=== PATIENT | female | born 1950 | race Caucasian/White ===

== ENCOUNTER 2020-02-01 15:31 | Outpatient (REF) | payer MEDICARE, SELFPAY ==
[2020-02-01 17:16] LABS: Blood Urea Nitrogen 30 mg/dL (9-16); Estimated Glomerular Filt Rate 47
== END 2020-02-01 15:32 | disposition home or self-care (01) ==
LOC: HO.LAB 15:31
PROVIDERS: PCP Internal Medicine; Visit Provider Internal Medicine
DX: I10 Essential (primary) hypertension (principal)
CPT/HCPCS: 82565; 84520

== ENCOUNTER → 2020-03-07 13:21 | Outpatient (BNVA) | payer MEDICARE, SELFPAY | PROVIDERS: PCP Internal Medicine; Referring Provider Internal Medicine; Visit Provider Student in an Organized Health Care Education/Training Program | DX: M35.3 Polymyalgia rheumatica (principal); M85.80 Other specified disorders of bone density and structure, unspecified site; Z79.52 Long term (current) use of systemic steroids | CPT/HCPCS: 99212 ==

== ENCOUNTER 2020-03-14 14:19 | Outpatient (REF) | payer MEDICARE, SELFPAY ==
--- NOTE | 2020-03-14 14:31 | XR_ITS ---
EXAMINATION: XR SKULL CLINICAL INFORMATION: Headache COMPARISON: 5 views. TECHNIQUE: 5 views of the skull were obtained. FINDINGS: There is normal cortical thickness. The diploic space is normal. No lytic or sclerotic process seen. Visualized paranasal sinuses and mastoid air cells are well aerated. The bony orbits are symmetrical and normal. XR/XR skull min 4V IMPRESSION: Unremarkable skull 4 views.
== END 2020-03-14 14:20 | disposition home or self-care (01) ==
LOC: HO.LAB 14:19
PROVIDERS: Absent Provider Internal Medicine; PCP Internal Medicine; Visit Provider Student in an Organized Health Care Education/Training Program
DX: R51.9 Headache, unspecified (principal); M35.3 Polymyalgia rheumatica
CPT/HCPCS: 70260

== ENCOUNTER 2020-03-22 13:28 | Outpatient (REF) | payer MEDICARE, SELFPAY ==
--- NOTE | 2020-03-22 13:28 | MR_ITS ---
EXAMINATION: MR SHOULDER WITHOUT CONTRAST, RIGHT CLINICAL INFORMATION: Right shoulder pain. COMPARISON: Radiographs of the shoulder from 10/12/2019. TECHNIQUE: MRI of the shoulder without contrast was performed on a high-field scanner. FINDINGS: ROTATOR CUFF: The supraspinatous tendon is torn. This is predominantly a partial-thickness undersurface tear, with articular surface component of the tendon medially retracted by nearly 2 cm. Attenuated, intact bursal surface tendon fibers continue distally to the greater tuberosity insertion. However, at the superior facet of the tuberosity, the tendon is severely attenuated and, on sagittal images, there appears to be a full-thickness tear component measuring 0.6 cm AP dimension. Otherwise, rotator cuff tendons are intact. There is mild atrophy and mild fatty replacement of the supraspinatous muscle. Mild fatty replacement with observed within the other rotator cuff muscles. No muscle edema. BICEPS: The long head of the biceps tendon is intact. It is appropriately positioned within the intertubercular sulcus of the humerus. There appears to be mild tendinosis of a short segment of the tendon entering the rotator interval. The intra-articular segment of the tendon, and biceps-labral junction, are intact. CORACOACROMIAL ARCH: Mild osteoarthritis of the acromioclavicular joint. There is mild downsloping of the anterior acromion. An enthesophyte is present at the insertion of the coracoacromial ligament -- a finding that can be observed in association with chronic subacromial impingement disorder. No os acromiale. Subacromial-subdeltoid bursa is mildly distended with fluid and has thickened synovium, consistent with bursitis. LABRUM/CAPSULE: The labrum is ill-defined at the anterosuperior glenoid, and labrum appears to be partially detached at the anteroinferior glenoid. The posterior labrum is relatively small, truncated. The glenohumeral ligament complex is unremarkable. No evidence of capsular thickening or pericapsular edema. The spinoglenoid notch is normal. GLENOHUMERAL JOINT/MARROW: The humeral head is well positioned over the intact glenoid. Small osteophyte is present at the inferior glenoid. Partial-thickness cartilage loss of the anteroinferior glenoid. Small subchondral cyst of the anteroinferior glenoid. Small glenohumeral joint effusion is present. No humeral bone bruise, fracture or avascular necrosis. MR/MR shoulder RT wo con IMPRESSION: * There is a delamination tear of the supraspinatus tendon with medial retraction of the torn articular surface tendon fibers. The attenuated bursal surface component of the tendon continues distally to the greater tuberosity insertion. A small, full-thickness tear of the supraspinatus is present at the superior facet of the tuberosity insertion. 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 * Subacromial-subdeltoid bursitis is noted. There is an enthesophyte of the anterior acromion -- a finding that can be observed in association with chronic subacromial impingement disorder. * The anterior labrum is ill-defined, likely chronically degenerated and torn.
== END 2020-03-22 13:29 | disposition home or self-care (01) ==
LOC: HO.MRI 13:28
PROVIDERS: Visit Provider Student in an Organized Health Care Education/Training Program
DX: M35.3 Polymyalgia rheumatica (principal); M25.511 Pain in right shoulder
CPT/HCPCS: 73221

== ENCOUNTER 2020-04-19 12:43 | Outpatient (REF) | payer MEDICARE, OTHER, SELFPAY ==
--- NOTE | 2020-04-19 12:49 | MR_ITS ---
EXAMINATION: MR SHOULDER WITHOUT CONTRAST, LEFT CLINICAL INFORMATION: Left shoulder pain. Decreased range of motion. Frequent falls in 2019. COMPARISON: None. TECHNIQUE: MR images of the shoulder were obtained on a 1.5 [employer] high-field strength scanner without intravenous contrast material. FINDINGS: ROTATOR CUFF: At the supraspinatus and infraspinatus tendons, there is a thin band of fluid signal at the insertion of the junctional fibers measuring approximately 1.4 cm AP and involving less than a quarter of the tendon thickness, most consistent with a thin intrasubstance partial tear. At the infraspinatus, this tear likely extends through the articular lamella. As seen on image 9/18 of series 6, there is additional increased undersurface signal within the critical zone of the supraspinatus tendon occurring 1.5 cm from the insertion, likely corresponding to a small articular-sided partial tear which may be contiguous with the aforementioned insertional interstitial tear. This subtle focus of partial-thickness articular surface tearing measures approximately 4 x 4 mm in area and involves approximately one-quarter of the tendon thickness. The subscapularis tendon is intact. No muscle atrophy or fatty infiltration. BICEPS: Normal. CORACOACROMIAL ARCH: The undersurface of the acromion is flat with no subacromial spur. Moderate acromioclavicular osteoarthritis. Mild subacromial-subdeltoid bursitis. LABRUM/CAPSULE: There is absence of much of the inferior labrum with marked maceration of the remaining tissue. Additional degenerative fraying is evident at the labrum posteriorly and superiorly. Joint capsule is normal in thickness. GLENOHUMERAL JOINT/MARROW: There is a small glenohumeral joint effusion with synovitis in the axillary pouch and within the biceps tendon sheath. There is mild nonuniform articular cartilage loss at the humeral head superiorly and medially. [id number] nonuniform articular cartilage loss is present at the glenoid with marginal osteophytes. Subcortical cystic changes at the greater tuberosity posterosuperiorly likely reactive to overlying tendinopathy, though chronic changes of internal impingement are also possible. MR/MR shoulder LT wo con IMPRESSION: 1. Mild supraspinatus and infraspinatus tendinosis with a subtle partial-thickness interstitial and articular-sided partial tear at the junctional fibers, involving less than a quarter of the tendon thickness. 2. Moderate acromioclavicular and [id number] glenohumeral osteoarthritis. Marked degeneration of the inferior glenoid labrum. 3. Glenohumeral joint synovitis. This may be reactive to the degenerative arthritis, though inflammatory and crystalline arthropathies are also possible.
[2020-04-19 15:01] LABS: C Reactive Protein 0.25 mg/dL (< or = 0.50)
[2020-04-19 16:05] LABS: Erythrocyte Sedimentation Rate 8 MM/HR (0-20)
== END 2020-04-19 12:44 | disposition home or self-care (01) ==
LOC: HO.MRI 12:43
PROVIDERS: Visit Provider Student in an Organized Health Care Education/Training Program
DX: M25.512 Pain in left shoulder (principal)
CPT/HCPCS: 36415; 73221; 85652; 86140

== ENCOUNTER → 2020-10-10 13:16 | Outpatient (BNVA) | payer MEDICARE, SELFPAY | PROVIDERS: PCP Internal Medicine; Visit Provider Student in an Organized Health Care Education/Training Program | DX: M35.3 Polymyalgia rheumatica (principal); Z79.52 Long term (current) use of systemic steroids | CPT/HCPCS: 99212 ==

== ENCOUNTER → 2020-11-23 14:09 | Outpatient (BNVA) | payer MEDICARE, SELFPAY | PROVIDERS: PCP Internal Medicine; Visit Provider Nurse Practitioner Family | DX: M79.7 Fibromyalgia (principal); M51.36 Other intervertebral disc degeneration, lumbar region; M25.511 Pain in right shoulder; M25.512 Pain in left shoulder; M79.641 Pain in right hand; M79.642 Pain in left hand; S32.9XXA Fracture of unspecified parts of lumbosacral spine and pelvis, initial encounter for closed fracture; I10 Essential (primary) hypertension; L30.4 Erythema intertrigo; C67.9 Malignant neoplasm of bladder, unspecified; Z88.1 Allergy status to other antibiotic agents; Z88.5 Allergy status to narcotic agent; Z88.8 Allergy status to other drugs, medicaments and biological substances; Z79.52 Long term (current) use of systemic steroids; Z79.891 Long term (current) use of opiate analgesic; Z79.899 Other long term (current) drug therapy; Z99.3 Dependence on wheelchair | CPT/HCPCS: 99202 ==

== ENCOUNTER 2020-11-28 12:28 | Outpatient (REF) | payer MEDICARE, SELFPAY ==
[2020-11-28 13:49] LABS: MANUAL DIFF FLAG NO
[2020-11-28 14:06] LABS: Basophils Percent Auto 0.3 % (0-2); Eosinophils Percent Auto 0.2 % (0-4); Hematocrit 38.1 % (37-47); Hemoglobin 11.8 g/dl (12.0-16.0); Imm Gran Abs Auto 0.07 X10*3/uL (0.00-0.03); Imm Gran Pct Auto 0.6 % (0.0-0.4); Lymphocytes Percent Auto 7.7 % (20-40); Mean Corpuscular Hemoglobin 30.3 pg (27.0-33.0); Mean Corpuscular Volume 97.9 fL (80-98); Mean Platelet Volume 9.6 fL (9.4-12.3); Monocytes Absolute Auto 0.6 X10*3/uL (0.1-1.2); Neutrophils Absolute Auto 10.8 X10*3/uL (2.0-8.3); Neutrophils Percent Auto 86.2 % (45-73); Platelet Count 662 X10*3/uL (160-400); Red Blood Count 3.89 X10*6/uL (4.20-5.50); Red Cell Distribution Width 13.1 % (11.0-16.0); White Blood Count 12.5 X10*3/uL (4.8-10.8)
[2020-11-28 14:47] LABS: Erythrocyte Sedimentation Rate 54 MM/HR (0-20)
[2020-11-28 14:55] LABS: TSH reflex Free T4 0.61 uIU/mL (0.32-4.0)
== END 2020-11-28 12:29 | disposition home or self-care (01) ==
LOC: HO.LAB 12:28
PROVIDERS: Absent Provider Internal Medicine; PCP Internal Medicine; Visit Provider Student in an Organized Health Care Education/Training Program
DX: G89.4 Chronic pain syndrome (principal); M35.3 Polymyalgia rheumatica; E78.2 Mixed hyperlipidemia; E66.9 Obesity, unspecified; I10 Essential (primary) hypertension
CPT/HCPCS: 36415; 84443; 85025; 85652

== ENCOUNTER 2021-02-13 15:06 | Outpatient (REF) | payer MEDICARE, SELFPAY ==
--- NOTE | ~2021-02-13 | US_ITS ---
EXAMINATION: US VENOUS ULTRASOUND WITH DOPPLER LOWER EXTREMITY, BILATERAL CLINICAL INFORMATION: Bilateral lower extremity edema. Assess for occult DVT. COMPARISON: Left lower extremity venous ultrasound with Doppler 09/02/2017 TECHNIQUE: Ultrasound of the deep veins is performed from the hip to the calf with compression sonography and color and pulse Doppler assessment. Spectral analysis with color-flow imaging is performed. FINDINGS: RIGHT: There is normal venous compression and respiratory variation and augmented flow. The visualized common femoral vein, superficial femoral vein, profunda femoral vein, popliteal vein, and the trifurcation region shows no evidence of deep venous thrombosis. No popliteal fossa cyst demonstrated. LEFT: There is normal venous compression and respiratory variation and augmented flow. The visualized common femoral vein, superficial femoral vein, profunda femoral vein, popliteal vein, and the trifurcation region shows no evidence of deep venous thrombosis. No popliteal fossa cyst demonstrated. US/US venous duplex LE BI IMPRESSION: No DVT demonstrated in the bilateral lower extremity.
== END 2021-02-13 15:07 | disposition home or self-care (01) ==
LOC: HO.HMGCX 15:06
PROVIDERS: PCP Internal Medicine; Visit Provider Internal Medicine
DX: R60.0 Localized edema (principal)
CPT/HCPCS: 93970

== ENCOUNTER 2022-01-22 14:29 | Outpatient (REF) | payer MEDICARE, SELFPAY ==
--- NOTE | ~2022-01-22 | MM_ITS ---
EXAMINATION: BONE DENSITOMETRY CLINICAL INDICATION: Menopause. COMPARISON: Previous BD dated 10/22/2019 and baseline BD dated 03/04/2005. TECHNIQUE: Using a [employer] DXA System (software version: 13.1) manufactured by [employer], dual-energy x-ray absorptiometry was performed of the lumbar spine and left hip. The images are of good technical quality. Summary results are attached. FINDINGS: AP SPINE L1-L4: Current: BMD 1.074 g/cm2, Z-score 0.5, T-score -0.9, normal, 7.2% increase from previous, 1.7% increase from baseline (<5% change is not significant). Prior: BMD 1.002 g/cm2. Baseline: BMD 1.056 g/cm2. LEFT FEMUR, NECK: Current: BMD 0.820 g/cm2, Z-score 0.1, T-score -1.6, osteopenia. Prior: BMD 0.725 g/cm2. Baseline: BMD 0.854 g/cm2. LEFT FEMUR, TOTAL: Current: BMD 0.833 g/cm2, Z-score 0.0, T-score -1.4, osteopenia, 7.1% increase from previous, 5.2% decrease from baseline (<5% change is not significant). Prior: BMD 0.778 g/cm2. Baseline: BMD 0.879 g/cm2. IDENTIFIED RISK FACTORS: Early menopause, bilateral oophorectomy, family history (parent hip fracture), glucocorticoids (chronic), height loss, history of fracture (adult), hysterectomy, osteoporosis, secondary osteoporosis. HISTORY OF FRACTURE: Hip, ribs. MEDICATIONS: Calcium, vitamin D, bisphosphonate. MM/XR DEXA axial skeleton IMPRESSION: 1. DIAGNOSIS: Osteopenia based on the lowest T-score value of -1.6 in the femoral neck applying World Health Organization criteria. 2. 10-YEAR FRACTURE RISK PREDICTION, FRAX: Not performed in this patient on estrogen or bone building treatments. 3. Treatment Recommendations: NOF guidelines recommend consideration for treatment in postmenopausal women and men age 50 and older presenting with the following: -A hip or vertebral (clinical or morphometric) fracture. -T-score less than or equal to -2.5 at the femoral neck or spine after appropriate evaluation to exclude secondary causes. -Low bone mass at the hip or spine and a 10-year fracture probability by FRAX of greater than or equal to 3% for hip fracture or greater than or equal to 20% for major osteoporotic fracture based on the [place] adapted WHO algorithm. 4. Other Recommendations: All treatment decisions require clinical judgment and consideration of individual patient factors, including patient preferences, comorbidities, previous drug use, risk factors not captured in the FRAX model (e.g. frailty, falls, vitamin D deficiency, increased bone turnover, interval significant decline in bone density) and possible under or overestimation of fracture risk by FRAX. Additional medical evaluation for secondary cause of low bone mineral density may be appropriate. FUTURE SCAN RECOMMENDATION: People with diagnosed cases of osteoporosis or at high risk for fracture should have regular bone mineral density tests. For patients eligible for Medicare, routine testing is allowed once every 2 years. The testing frequency can be increased to one year for patients who have rapidly progressing disease, those who are receiving or discontinuing medical therapy to restore bone mass, or have additional risk factors.
== END 2022-01-22 14:30 | disposition home or self-care (01) ==
LOC: HO.MAMMO 14:29
PROVIDERS: PCP Internal Medicine; Visit Provider Nurse Practitioner Family
DX: Z13.820 Encounter for screening for osteoporosis (principal); Z78.0 Asymptomatic menopausal state
CPT/HCPCS: 77080

== ENCOUNTER 2022-06-13 11:03 | Outpatient (REF) | payer MEDICARE, SELFPAY ==
[2022-06-13 11:50] LABS: MANUAL DIFF FLAG NO
[2022-06-13 12:56] LABS: Basophils Percent Auto 0.6 % (0-2); Eosinophils Absolute Auto 0.2 X10*3/uL (0.0-0.4); Eosinophils Percent Auto 2.2 % (0-4); Hematocrit 43.4 % (37.0-47.0); Hemoglobin 13.8 g/dl (12.0-16.0); Imm Gran Abs Auto 0.03 X10*3/uL (0.00-0.03); Imm Gran Pct Auto 0.4 % (0.0-0.4); Lymphocytes Absolute Auto 1.2 X10*3/uL (1.2-4.9); Lymphocytes Percent Auto 15.9 % (20-40); Mean Corpuscular HGB Conc 31.8 g/dl (31.0-35.0); Mean Corpuscular Hemoglobin 30.3 pg (27.0-33.0); Mean Corpuscular Volume 95.4 fL (80.0-98.0); Mean Platelet Volume 9.5 fL (9.4-12.3); Monocytes Absolute Auto 0.6 X10*3/uL (0.1-1.2); Monocytes Percent Auto 8.2 % (2-11); Neutrophils Absolute Auto 5.3 x10*3/uL (2.0-8.3); Neutrophils Percent Auto 72.7 % (45-73); Platelet Count 333 X10*3/uL (160-400); Red Blood Count 4.55 X10*6/uL (4.20-5.50); Red Cell Distribution Width 15.2 % (11.0-16.0); White Blood Count 7.2 X10*3/uL (4.8-10.8)
[2022-06-13 13:35] LABS: Erythrocyte Sedimentation Rate 12 MM/HR (0-20)
[2022-06-13 13:50] LABS: Alanine Aminotransferase 13 U/L (0-31); Albumin Level 4.4 g/dL (3.5-5.0); Alkaline Phosphatase 53 U/L (39-117); Anion Gap 16 (12-20); Aspartate Amino Transferase 18 U/L (5-31); Bilirubin Total 0.5 mg/dL (0.0-1.0); Blood Urea Nitrogen 18 mg/dL (9-16); Calcium 9.3 mg/dL (8.4-10.2); Carbon Dioxide 26 mmol/L (22-29); Chloride 102 mmol/L (96-108); Cholesterol 210 mg/dL; Estimated Glomerular Filt Rate > 60; Glucose Fasting 93 mg/dL (60-99); HDL Cholesterol 56 mg/dL; LDL Cholesterol Calculated 121 mg/dl; Sodium 140 mmol/L (135-145); Triglycerides 168 mg/dL
[2022-06-13 13:51] LABS: Vitamin D 25-OH Total 26.4 ng/mL (>30)
== END 2022-06-13 11:04 | disposition home or self-care (01) ==
LOC: HO.LAB 11:03
PROVIDERS: PCP Internal Medicine; Visit Provider Internal Medicine
DX: I10 Essential (primary) hypertension (principal); M79.7 Fibromyalgia; E55.9 Vitamin D deficiency, unspecified; E78.00 Pure hypercholesterolemia, unspecified
CPT/HCPCS: 36415; 80053; 80061; 82306; 84443; 85025; 85652

== ENCOUNTER 2022-07-11 | Outpatient (REF) | payer MEDICARE, SELFPAY ==
[2022-07-12 16:01] LABS: Appearance Urine Cloudy; Color Urine Yellow; Glucose Urine UA Negative (Negative); Leukocyte Esterase Urine Moderate (2+) (Negative); Nitrite Urine Positive (Negative); PH 6.5 (5.0-9.0); Specific Gravity - Urine 1.015 (1.005-1.025); UMIC TRIGGER UACC YES; Urine Blood Small (1+) (Negative); Urine Ketones Negative (Negative); Urine Protein 30 (1+) mg/dL (Neg-Trace)
[2022-07-12 16:16] LABS: Bacteria Urine 2+ (None Seen); Calcium Oxalate Crystals Urine Present; UACC Culture Trigger YES; WBC Urine >50 /HPF (0-5)
== END 2022-07-11 00:01 | disposition home or self-care (01) ==
LOC: HO.LNP
PROVIDERS: Visit Provider Internal Medicine
DX: R30.0 Dysuria (principal)
CPT/HCPCS: 81001; 81003; 87086; 87088; 87186

== ENCOUNTER 2023-02-21 11:14 | Outpatient (AMB) | payer MEDICARE, SELFPAY ==
--- NOTE | 2023-02-21 11:17 | A.OFFVIS_ITS ---
Intake Vital Signs 02/21/23 11:21 Height 5 ft 1 in Weight 148 lb 8 oz BMI 28.1 BP 100/60 Blood Pressure Location Lt brachial Position Sitting Pulse 84 Pulse Source Pulse Oximeter Pulse Oximetry (%) 96 Oxygen Delivery Method Room Air Intake Visit Reasons: SWV [id number] Discuss/Bill ACP Intake Note: Patient is here for an Annual Wellness Visit. Material Checker Required: No Program Coordinator Executive Education: Program Coordinator Executive Education Present and Program Coordinator Executive Education offered & declined Accompanied by: Spouse Allergies cephalexin [Keflex] Allergy (Intermediate, Verified 02/21/23 11:44) hives codeine Allergy (Intermediate, Verified 02/21/23 11:44) vomit meperidine [Demerol] Allergy (Intermediate, Verified 02/21/23 11:44) Vomiting pregabalin Adverse Reaction (Intermediate, Verified 02/21/23 11:44) double vision, hand tremors bandaids, plastic tape Allergy (Mild, Uncoded 02/21/23 11:44) Rash Medication List - Last Reconciled 02/21/23 by REBA Vásquez adalimumab (Humira(CF) Pen) mg subcut albuterol sulfate 90 mcg/actuation (ProAir HFA) 2 puffs inhalation Q4-6H PRN atorvastatin 20 mg PO DAILY calcium carbonate (Calcium) 600 mg PO BID carisoprodol 350 mg PO TID PRN 30 days cholecalciferol (vitamin D3) 25 mcg PO DAILY docusate sodium (Colace) 100 mg PO BID esomeprazole magnesium (Nexium) 40 mg PO DAILY fenofibrate nanocrystallized 145 mg PO DAILY gabapentin 600 mg PO TID hydrochlorothiazide 12.5 mg PO QAM hydroxyzine HCl 25 mg PO TID PRN 30 days leflunomide 10 mg PO DAILY lidocaine 5% 3 patches topical DAILY lisinopril 10 mg PO DAILY lorazepam 2 mg PO TID PRN 30 days nystatin 1 appl topical BID PRN 30 days ondansetron 4 mg PO Q8H PRN 15 days oxycodone Take 1/2 to 1 tablet every 6 hours only as needed for increased pain; PO every 6 hours PRN; 10 days polyethylene glycol 3350 (Miralax) 17 grams PO DAILY PRN sertraline 200 mg (2 x 100 mg) PO DAILY 30 days HPI SWV [id number] Discuss/Bill ACP HPI Details Patient is a 72-year-old female who presents today [facility]. Patient of Dr. Funez Today we discussed patient's need for colon cancer screening, patient has declined. Mammogram 01/2023 and repeat in 6 months. Bone density screen 01/2022 with osteopenia. Patient reports that she recently had blood work done [facility] will request records. [place] of care was reviewed with the patient and she was provided with a screening schedule. Patient reports that she has a healthcare proxy in place and she will provide office with a copy, patient was provided with a MOLST form. In addition, patient reports pruritic rash on her left arm since 08/2022, her cable respooler sent triamcinolone cream with no improvement. She will be having dermatology appointment 04/2023. Patient also reports taking hydroxyzine 25 mg every 8 hours as needed with no much improvement. Denies changes in shampoo, body wash, detergent, or new foods. Also reports some minimal rash on her abdomen. [facility] Medical History Wheezing Overweight (BMI 25.0-29.9) Depression Keratotic lesion Bilateral shoulder pain Intertrigo Fracture of right pelvis Neck pain on right side Cranial pain Mixed hyperlipidemia Obesity (BMI 30-39.9) Anxiety Fibromyalgia Recurrent malignant neoplasm of bladder Benign essential hypertension Polymyalgia rheumatica Lumbar degenerative disc disease Surgical History History of colonoscopy History of hip surgery S/P ORIF (open reduction internal fixation) fracture (~06/2020) History of lumbosacral spine surgery Status post left foot surgery (~10/12/14) Hx of total cystectomy (~06/29/19) History of oral surgery (~04/2016) Status post cystourethroscopy with dilation of urethral stricture (~05/2015) Hx of tonsillectomy Family History Father Hypertension CVD (cardiovascular disease) Cancer Mother Stroke Social History Housing: House Alcohol intake: current Alcohol intake frequency: holidays/special occasions only Alcohol type: wine Patient Tobacco Use Status: Former Tobacco user Tobacco use type: Cigarette Cigarettes Per Day: 10 Years Smoked: 20 e-Cigarette/Vaping Use: Never Used Second Hand Smoke Exposure: Yes service: No Current occupational status: retired Cognitive needs: Yes (walker ) Hearing needs: No Vision needs: Yes Questionnaire Medicare Wellness Checkup [age] What gender do you identify with?: female During the past 4 weeks, how much have you been bothered by emotional problems such as feeling anxious, depressed, irritable, sad or downhearted, and blue?: slightly During the past 4 weeks, has your physical & emotional health limited your social activities with family, friends, neighbors, or groups?: moderately During the past 4 weeks, how much bodily pain have you generally had?: moderate pain (or severe depending on day) During the past 4 weeks, was someone available to help you if you needed & wanted help?: yes, as much as I wanted During the past 4 weeks, what was the hardest physical activity you could do for at least 2 minutes?: very light Can you get to places out of walking distance without help? (For eg., can you travel alone on buses, taxis or drive your car?): Yes Can you go shopping for groceries or clothes without someone's help?: No Can you prepare your own meals?: Yes (to some extend) Can you do your housework without help?: Yes (little) Because of any health problems, do you need the help of another person with your personal care needs such as eating, bathing, dressing or getting around the house?: Yes (need some help) Can you handle your own money without help?: No During the past 4 weeks, how would you rate your health in general?: poor During the past 4 weeks how have things been going for you?: pretty bad Are you having difficulties driving your car?: not applicable, I don't use a car Do you always fasten your seat belt when you are in a car?: yes, usually During past 4 weeks, have you been bothered by the following: never: Sexual problems?, Teeth or denture problems? and Problems using the telephone?, so metimes: Trouble eating well?, often: Falling or dizzy when standing up and always: Tiredness or fatigue? Have you fallen 2 or more times in the past year?: Yes Are you afraid of falling?: Yes Are you a smoker?: no During the past 4 weeks, how many drinks of wine, beer, or other alcoholic beverages did you have?: no alcohol at all Do you exercise for about 20 minutes 3 or more times a week?: yes, some of the time Have you been given information to help with the following?: yes: Keeping track of your medications? (spouse track medication) and no: Hazards in your house that might hurt you? How often do you have trouble taking medicines the way you have been told to take them?: I always take medicine as prescribed How confident are you that you can control & manage most of your health problems?: not very confident What is your race?: White Mini Mental State Exam (MMSE) Orientation What is the (year) (season) (date) (day) (month)?: year, season, date, day and month Score Score: 5 Activity of Daily Living Bathing - sponge bath, tub bath or shower: receives no assistance (gets in/out by self, if usual bathing means Dressing - getting clothes from closets & drawers, including inner/outer garments & fasteners.: gets clothes & gets dressed without help, except for help tying shoes Toileting - going to the 'toilet room' for urine/bowel elimination & cleaning self/arranging clothes: goes to toilet room, cleans self, arranges clothes without help Transfer: moves in & out of bed and chair without help (may use support object) Continence: supervision helps urination/bowel control; catheter use; incontinent (pt has urostomy ) Feeding: feeds self without help Total Score: 1 Information obtained from: patient Using telephone: independent Traveling: dependent Shopping: needs assistance Preparing meals: needs assistance Housework: dependent Taking medicine: needs assistance Managing money: independent PHQ-9 Over the last 2 weeks, how often have you been bothered by any of the following problems? 1. Little interest or pleasure in doing things: not at all 2. Feeling down, depressed, or hopeless: not at all 3. Trouble falling or staying asleep, or sleeping too much: not at all 4. Feeling tired or having little energy: not at all 5. Poor appetite or overeating: not at all 6. Feeling bad about yourself - or that you are a failure or have let yourself or your family down: not at all 7. Trouble concentrating on things, such as reading the newspaper or watching television: not at all 8. Moving or speaking so slowly that other people could have noticed. Or the opposite - being so fidgety or restless that you have been moving around a lot more than usual: not at all 9. Thoughts that you would be better off or of hurting yourself in some way: not at all Total score: 0 Depression Screening Interpretation: Negative Depression Screening Done: Yes 02525 - PHQ-9 Billing: Yes Source: Developed by Drs. Rupert Wilson, Shaye Russell, David Cleary and colleagues, with an educational kayleigh from [employer]. Thrive Questionnaire Date Thrive assessed: 10/14/22 MORGAN-7 AMB Questionnaire MORGAN-7 Date MORGAN - 7 assessed: 10/14/22 Source: Developed by Drs. Rupert Wilson, Shaye Russell, David Cleary and colleagues, with an educational kayleigh from [employer]. Review of Systems Skin/Breast Reports as per HPI Physical Exam Vital Signs: Last Vital Signs Pulse 84 02/21/23 11:21 BP 100/60 02/21/23 11:21 Pulse Ox 96 02/21/23 11:21 Oxygen Delivery Method Room Air 02/21/23 11:21 BMI result Body Mass Index 28.1 Const General: cooperative and no acute distress Orientation/consciousness: patient oriented x3 HEENT Other: Whisper test: pass Eyes General: appearance normal, both eyes and all related structures Resp Effort & Inspection: normal respiratory effort Auscultation: clear to auscultation bilaterally Cardio Rate: regular rate Rhythm: regular rhythm Heart sounds: S1 normal heart sound present and S2 normal heart sound present GI Auscultation: normal bowel sounds Skin Other: Left upper lateral arm with mild amount of slightly erythematous flat areas about 5mm in diameter, no signs of infection noted Abdomen with very mild amount of slightly erythematous flat areas Neuro Other: Balance: Normal - ambulates with a rolling walker Get up and walk: unable to Romberg: negative Tandem gait: unable to General: patient oriented x3 Assessment & Plan Assessment & Plan (1) Adult general medical exam: Code(s): Z00.00 - Encounter for general adult medical examination without abnormal findings (2) Chronic, continuous use of opioids: Code(s): F11.90 - Opioid use, unspecified, uncomplicated Plan: Patient is on oxycodone as needed as for her chronic pains. (3) Depression: Code(s): F32.9 - Major depressive disorder, single episode, unspecified Qualifiers: Depression Type: major depressive disorder Major depression recurrence: recurrent Active/Remission status: currently active Major depression episode severity: unspecified Qualified Code(s): F33.9 - Major depressive disorder, recurrent, unspecified Plan: Patient is on sertraline daily. (4) Mixed hyperlipidemia: Code(s): E78.2 - Mixed hyperlipidemia Plan: Continue current treatment. Reinforced low cholesterol diet. (5) Anxiety: Code(s): F41.9 - Anxiety disorder, unspecified Plan: Lorazepam as needed. Patient takes medication as prescribed. (6) Fibromyalgia: Code(s): M79.7 - Fibromyalgia Plan: Continue to follow-up with rheumatology (7) Benign essential hypertension: Code(s): I10 - Essential (primary) hypertension Plan: Continue current treatment. Reinforced low-sodium diet and exercise as tolerated. Patient reports that she needs a referral to go back and see her chiller tender, last cardiology visit over 1 year ago and now she needs new referral (8) Polymyalgia rheumatica: Code(s): M35.3 - Polymyalgia rheumatica Plan: Continue to follow-up with rheumatology as scheduled. (9) Lumbar degenerative disc disease: Code(s): M51.36 - Other intervertebral disc degeneration, lumbar region Plan: Was seen by Neurosurgery Dr. Melchor in the past (10) Recurrent malignant neoplasm of bladder: Code(s): C67.9 - Malignant neoplasm of bladder, unspecified Plan: Patient is followed by Oncology at [facility] - she will call for an appointment (11) Pruritic rash: Code(s): L28.2 - Other prurigo Plan: Left upper lateral arm with mild amount of slightly erythematous flat areas about 5mm in diameter, no signs of infection noted Abdomen with very mild amount of slightly erythematous flat areas Continue hydroxyzine 25 mg t.i.d. p.r.n. Prescription sent for betamethasone cream daily p.r.n. - educated not to use this cream on her face Follow-up with Dermatology as scheduled (12) Mitral valve prolapse: Code(s): I34.1 - Nonrheumatic mitral (valve) prolapse Plan: Patient reports that she needs a referral to go back and see her chiller tender, last cardiology visit over 1 year ago and now she needs new referral (13) GERD (gastroesophageal reflux disease): Code(s): K21.9 - Gastro-esophageal reflux disease without esophagitis Qualifiers: Esophagitis presence: without esophagitis Qualified Code(s): K21.9 - Gastro-esophageal reflux disease without esophagitis Plan: Stable with Nexium Avoid GERD trigger foods (14) Colonoscopy refused: Code(s): Z53.20 - Procedure and treatment not carried out because of patient's decision for unspecified reasons (15) Overweight (BMI 25.0-29.9): Code(s): E66.3 - Overweight Plan: Healthy food choices (16) Presence of urostomy: Code(s): Z93.6 - Other artificial openings of urinary tract status Plan: Stable Orders: Referrals Cardiology Referral I10 - Essential (primary) hypertension, I34.1 - Nonrheumatic mitral (valve) prolapse Medications: New betamethasone dipropionate 0.05% 1 appl topical DAILY PRN 15 grams 0RF skin irritation L28.2 - Other prurigo Quality Reporting (2019) Depression/Bipolar (159/160/161/177) PHQ-9: Total score: 0 Coding Level of Care Code Medicare Subsequent (G0439) Est Pt Level 3 (06000) Diagnoses Adult general medical exam Z00.00 Chronic, continuous use of opioids F11.90 Episode of recurrent major depressive disorder, unspecified depression episode severity F33.9 Depression Type: major depressive disorder Major depression recurrence: recurrent Active/Remission status: currently active Major depression episode severity: unspecified Mixed hyperlipidemia E78.2 Anxiety F41.9 Fibromyalgia M79.7 Benign essential hypertension I10 Polymyalgia rheumatica M35.3 Lumbar degenerative disc disease M51.36 Recurrent malignant neoplasm of bladder C67.9 Pruritic rash L28.2 Mitral valve prolapse I34.1 Gastroesophageal reflux disease without esophagitis K21.9 Esophagitis presence: without esophagitis Colonoscopy refused Z53.20 Overweight (BMI 25.0-29.9) E66.3 Presence of urostomy Z93.6 CPT Codes Advance Care Planning - Time spent: 1-15 minutes, not on file ([id number]) Advance Care Planning Advance Care Planning discussion: Exists, not on file Date of discussion: 02/21/23 Who was present: pt, , pediatric np Forms completed: None Time spent: 1-15 minutes, not on file Actual minutes spent: 3 Did not discuss due to Cultural/Spiritual beliefs: No
[2023-02-21 11:21] VITALS: BP 100/60; PULSE 84; O2SAT 96; BMI 28.1
== END 2023-02-21 12:19 | disposition home or self-care (01) ==
PROVIDERS: PCP Internal Medicine; Visit Provider Nurse Practitioner Family
DX: Z00.00 Encounter for general adult medical examination without abnormal findings (principal); L28.2 Other prurigo; F33.9 Major depressive disorder, recurrent, unspecified; M35.3 Polymyalgia rheumatica; C67.9 Malignant neoplasm of bladder, unspecified; Z93.6 Other artificial openings of urinary tract status; F11.90 Opioid use, unspecified, uncomplicated; E78.2 Mixed hyperlipidemia; F41.9 Anxiety disorder, unspecified; M79.7 Fibromyalgia; I10 Essential (primary) hypertension; M51.36 Other intervertebral disc degeneration, lumbar region
CPT/HCPCS: 1124F; 99213; G0439

== ENCOUNTER 2023-07-22 16:27 | Outpatient (REF) | payer MEDICARE, SELFPAY ==
--- NOTE | ~2023-07-22 | XR_ITS ---
EXAMINATION: XR KNEE, RIGHT XR KNEE, LEFT CLINICAL INDICATION: Pain in right knee. TECHNIQUE: 4 views of each knee. COMPARISON: 09/29/2018 FINDINGS: RIGHT KNEE: The distal aspect of an intramedullary barber is partially imaged in the visualized distal femur. Bones are diffusely demineralized. Trace joint effusion. Tiny tricompartmental osteophytes. Mild narrowing of the medial and lateral compartments. LEFT KNEE: Bones are diffusely demineralized. Tiny tricompartmental osteophytes. Moderate joint effusion. Mild narrowing of the medial and lateral compartments. XR/XR knee RT 4V IMPRESSION: Mild degenerative changes in the bilateral knees.
--- NOTE | ~2023-07-22 | XR_ITS ---
EXAMINATION: XR BILATERAL HIPS WITH AP PELVIS CLINICAL INFORMATION: Right hip pain. COMPARISON: Left hip radiographs dated 09/02/2017 TECHNIQUE: AP view of the pelvis and single views of each hip were obtained. FINDINGS: There is mild bony demineralization. The bilateral acetabular joint spaces are well-maintained. An intramedullary barber and proximal compression screw are applied to the proximal right femur, without failure or loosening noted. The intramedullary barber is incompletely covered in the [id number]. There are old, healed fractures of the proximal right femur and of the left inferior pubic ramus. There are bilateral pelvic surgical clips. The sacroiliac joints are symmetric and well-maintained, and the pubic symphysis is intact. A tubular device overlaps the right pelvis, possibly external to the patient. Please correlate clinically. XR/XR hips ANTON min 3V IMPRESSION: 1. No unusual degenerative change is seen of the bilateral hips. 2. Orthopedic hardware and old, healed fractures are noted, as detailed. 3. No acute fracture or dislocation is seen.
--- NOTE | ~2023-07-22 | XR_ITS ---
EXAMINATION: XR KNEE, RIGHT XR KNEE, LEFT CLINICAL INDICATION: Pain in right knee. TECHNIQUE: 4 views of each knee. COMPARISON: 09/29/2018 FINDINGS: RIGHT KNEE: The distal aspect of an intramedullary barber is partially imaged in the visualized distal femur. Bones are diffusely demineralized. Trace joint effusion. Tiny tricompartmental osteophytes. Mild narrowing of the medial and lateral compartments. LEFT KNEE: Bones are diffusely demineralized. Tiny tricompartmental osteophytes. Moderate joint effusion. Mild narrowing of the medial and lateral compartments. XR/XR knee LT 4V IMPRESSION: Mild degenerative changes in the bilateral knees.
[2023-07-22 16:48] LABS: MANUAL DIFF FLAG NO
[2023-07-22 17:08] LABS: Basophils Absolute Auto 0.1 X10*3/uL (0.0-0.2); Basophils Percent Auto 0.9 % (0-2); Eosinophils Absolute Auto 0.1 X10*3/uL (0.0-0.4); Eosinophils Percent Auto 1.7 % (0-4); Hematocrit 41.9 % (37.0-47.0); Hemoglobin 13.7 g/dl (12.0-16.0); Imm Gran Abs Auto 0.01 X10*3/uL (0.00-0.03); Imm Gran Pct Auto 0.2 % (0.0-0.4); Lymphocytes Absolute Auto 1.7 X10*3/uL (1.2-4.9); Lymphocytes Percent Auto 31.9 % (20-40); Mean Corpuscular HGB Conc 32.7 g/dl (31.0-35.0); Mean Corpuscular Hemoglobin 30.3 pg (27.0-33.0); Mean Corpuscular Volume 92.7 fL (80.0-98.0); Mean Platelet Volume 9.4 fL (9.4-12.3); Monocytes Absolute Auto 0.7 X10*3/uL (0.1-1.2); Monocytes Percent Auto 12.3 % (2-11); Neutrophils Absolute Auto 2.8 x10*3/uL (2.0-8.3); Platelet Count 330 X10*3/uL (160-400); Red Blood Count 4.52 X10*6/uL (4.20-5.50); Red Cell Distribution Width 13.2 % (11.0-16.0); White Blood Count 5.3 X10*3/uL (4.8-10.8)
[2023-07-22 17:38] LABS: Alanine Aminotransferase 19 U/L (0-31); Alkaline Phosphatase 109 U/L (39-117); Anion Gap 14 (12-20); Aspartate Amino Transferase 16 U/L (5-31); Bilirubin Total 0.2 mg/dL (0.0-1.0); Blood Urea Nitrogen 20 mg/dL (9-16); Calcium 9.4 mg/dL (8.4-10.2); Carbon Dioxide 21 mmol/L (22-29); Chloride 107 mmol/L (96-108); Cholesterol 286 mg/dL (<200); Estimated Glomerular Filt Rate > 60; Glucose Fasting 97 mg/dL (60-99); HDL Cholesterol 43 mg/dL (>40); LDL Cholesterol Calculated 177 mg/dL (<100); Potassium 3.8 mmol/L (3.3-5.1); Sodium 138 mmol/L (135-145); Total Protein 7.2 g/dL (6.5-8.0); Triglycerides 334 mg/dL (<150)
[2023-07-22 17:55] LABS: Appearance Urine Turbid; Color Urine Yellow; Glucose Urine UA Negative (Negative); Leukocyte Esterase Urine Large (3+) (Negative); Nitrite Urine Negative (Negative); PH 6.5 (5.0-9.0); Specific Gravity - Urine 1.015 (1.005-1.025); UMIC TRIGGER UACC YES; Urine Blood Negative (Negative); Urine Ketones Negative (Negative); Urine Protein Trace mg/dL (Neg-Trace)
[2023-07-22 17:55] LABS: TSH reflex Free T4 1.78 uIU/mL (0.32-4.0); Vitamin D 25-OH Total 26.6 ng/mL (>30)
[2023-07-22 18:41] LABS: Bacteria Urine 4+ (None Seen); UACC Culture Trigger YES
== END 2023-07-22 16:28 | disposition home or self-care (01) ==
LOC: HO.LAB 16:27
PROVIDERS: PCP Internal Medicine; Visit Provider Internal Medicine
DX: I10 Essential (primary) hypertension (principal); E55.9 Vitamin D deficiency, unspecified; E78.00 Pure hypercholesterolemia, unspecified; M25.561 Pain in right knee; M25.562 Pain in left knee; M25.551 Pain in right hip; M25.552 Pain in left hip; R30.0 Dysuria
CPT/HCPCS: 36415; 73522; 73564; 80053; 80061; 81001; 82306; 84443; 85025; 87086; 87088; 87186

== ENCOUNTER 2023-09-29 13:31 | Outpatient (AMB) | payer MEDICARE, SELFPAY ==
--- NOTE | 2023-09-29 13:33 | MHC.PC.OV ---
Vital Signs 09/29/23 13:36 Height 5 ft 1 in Weight 137 lb 8 oz BMI 26.0 BP 112/72 Blood Pressure Location Lt brachial Position Sitting Pulse 72 Pulse Source Pulse Oximeter Pulse Oximetry (%) 100 Oxygen Delivery Method Room Air Intake Visit Reasons: F/U on Both Legs/Both hips (falling since surgery) Intake Note: Patient is here to follow up on RA, bilateral leg pain, lump in neck. Complaint of open wound area toni area and it is draining. Hospital Chief Financial Officer Required: No Brim Setter: Present Accompanied by: Spouse Allergies cephalexin [Keflex] Allergy (Intermediate, Verified 12/12/23 02:19) hives codeine Allergy (Intermediate, Verified 12/12/23 02:19) vomit meperidine [Demerol] Allergy (Intermediate, Verified 12/12/23 02:19) Vomiting tizanidine Allergy (Intermediate, Verified 12/12/23 02:19) Dizziness pregabalin Adverse Reaction (Intermediate, Verified 12/12/23 02:19) double vision, hand tremors bandaids, plastic tape Allergy (Mild, Uncoded 12/12/23 02:19) Rash Medication List - Last Reconciled 09/29/23 by Steve Funez MD adalimumab (Humira(CF) Pen) mg subcut albuterol sulfate 90 mcg/actuation (ProAir HFA) 2 puffs inhalation Q4-6H PRN atorvastatin 20 mg PO DAILY betamethasone dipropionate 0.05% 1 appl topical DAILY PRN calcium carbonate (Calcium 600) 600 mg PO BID cholecalciferol (vitamin D3) 25 mcg PO DAILY docusate sodium (Colace) 100 mg PO BID esomeprazole magnesium (Nexium) 40 mg PO DAILY fenofibrate nanocrystallized 145 mg PO DAILY gabapentin 600 mg PO TID hydrochlorothiazide 12.5 mg PO QAM hydroxyzine HCl 25 mg PO TID PRN 30 days leflunomide 10 mg PO DAILY lidocaine 5% 3 patches topical DAILY lisinopril 10 mg PO DAILY lorazepam 2 mg PO TID PRN 30 days Nystop (nystatin) 1 appl topical BID PRN 30 days NS ondansetron 4 mg PO Q8H PRN 15 days oxycodone Take 1/2 to 1 tablet every 6 hours only as needed for increased pain; PO every 6 hours PRN; 10 days polyethylene glycol 3350 (Miralax) 17 grams PO DAILY PRN sertraline 200 mg (2 x 100 mg) PO DAILY 30 days tizanidine 4 mg PO Q8H PRN 30 days Tobacco use date assessed: 09/29/23 Fall risk assessment: 1 Fall in past year Last assessed Fall Risk: 09/29/23 Dental Screening Dental Screen Date: 09/29/23 Did you have a dental visit in the last 12 months?: Yes Did you have a dental problem in the last 6 months where you did not have access to dental care?: No Was dental information given to patient?: Patient has dentist HPI F/U on Both Legs/Both hips (falling since surgery) HPI Details Patient comes in today for her follow up visit - is accompanied by her spouse She continues to complain of increased pain all over everyday - states that she wakes up in pain and goes to sleep at night in pain States that she especially has increased pain in her lower back and in her hips and that these have progressively gotten worse since she fell (twice) after her hip surgery about 3 years ago in 2020 In total, she has had 5 separate surgeries done on her lower back, none of which have helped her much States that she feels very limited in anything that she can do due to her chronic pain and feels very depressed and despondent about her non-existent quality of life She is currently on Oxycodone 10 mg Q 6 hours PRN, which she states that she takes exactly as prescribed although she feels that these helped only partially and her relief does not last for more than a few hours at most She has been seen by pain management a few years ago and she chose not to pursue interventional treatment as she did not feel that they would help any more than what she had already been through She continues to follow up with Dr. Aburto (rheumatology) out in [place] for her RA She denies any headaches or dizziness Denies any chest pains, no increased SOB No nausea/vomiting, no abdominal pain No change in bowel habits noted She had some labs done a couple of months ago - to discuss her results Adds that she currently has what she thinks are some draining sores in her perineal area and she is trying to manage them on her own for now [facility] Medical History Wheezing Overweight (BMI 25.0-29.9) Depression Keratotic lesion Bilateral shoulder pain Intertrigo Fracture of right pelvis Neck pain on right side Cranial pain Mixed hyperlipidemia Obesity (BMI 30-39.9) Anxiety Fibromyalgia Recurrent malignant neoplasm of bladder Benign essential hypertension Polymyalgia rheumatica Lumbar degenerative disc disease Surgical History History of biopsy History of colonoscopy History of hip surgery S/P ORIF (open reduction internal fixation) fracture (~06/2020) History of lumbosacral spine surgery Status post left foot surgery (~10/12/14) Hx of total cystectomy (~06/29/19) History of oral surgery (~04/2016) Status post cystourethroscopy with dilation of urethral stricture (~05/2015) Hx of tonsillectomy Family History Father Hypertension CVD (cardiovascular disease) Cancer Mother Stroke Social History Housing: House Alcohol intake: current Alcohol intake frequency: holidays/special occasions only Alcohol type: wine Patient Tobacco Use Status: Former Tobacco user Tobacco use type: Cigarette Cigarettes Per Day: 10 Years Smoked: 20 e-Cigarette/Vaping Use: Never Used Second Hand Smoke Exposure: Yes service: No Current occupational status: retired Cognitive needs: Yes (walker ) Hearing needs: No Vision needs: Yes Questionnaire PHQ-9 Over the last 2 weeks, how often have you been bothered by any of the following problems? 1. Little interest or pleasure in doing things: not at all 2. Feeling down, depressed, or hopeless: not at all 3. Trouble falling or staying asleep, or sleeping too much: not at all 4. Feeling tired or having little energy: not at all 5. Poor appetite or overeating: not at all 6. Feeling bad about yourself - or that you are a failure or have let yourself or your family down: not at all 7. Trouble concentrating on things, such as reading the newspaper or watching television: not at all 8. Moving or speaking so slowly that other people could have noticed. Or the opposite - being so fidgety or restless that you have been moving around a lot more than usual: not at all 9. Thoughts that you would be better off or of hurting yourself in some way: not at all Total score: 0 Depression Screening Interpretation: Negative (is on Rx for depression) Depression Screening Done: Yes 48150 - PHQ-9 Billing: Yes Source: Developed by Drs. Rupert Wilson, Shaye Russell, David Cleary and colleagues, with an educational kayleigh from [employer]. Thrive Questionnaire Date Thrive assessed: 09/29/23 I am a: Patient What is your living situation today?: I have a steady place to live Within the past 12 months, did the food you bought not last and you didn't have the money to get more?: Never true Within the past 12 months, did you worry whether your food would run out before you got money to buy more?: Never true Do you have trouble paying for medicines?: No Do you have trouble getting transportation to medical appointments?: No Do you have trouble paying your heating and electricity bill?: No Do you have trouble taking care of your child, family member or friend?: No Do you have trouble with day-to-day activities such as bathing, preparing meals, shopping, managing finances, etc.?: No Are you currently unemployed and looking for a job?: No Are you interested in more education?: No Currently or been in a relationship where the following occur: no concerns reported THRIVE Score: 0 AUDIT C Alcohol Use Questionnaire (AUDIT-C) 1. How often do you have a drink containing alcohol?: Never 3. How often do you have six or more drinks on one occasion?: Never Total Score: 0 Score Reviewed/Action Taken: Yes MORGAN-7 AMB Questionnaire MORGAN-7 Date MORGAN - 7 assessed: 09/29/23 Feeling nervous, anxious, or on edge: 0 = Not at all Not being able to stop or control worryin = Not at all Worrying too much about different things: 0 = Not at all Trouble relaxin = Not at all Being so restless that it is hard to sit still: 0 = Not at all Becoming easily annoyed or irritable: 0 = Not at all Feeling afraid as if something awful might happen: 0 = Not at all Total MORGAN-7 score (0-4 normal; 5-9 mild; 10-14 moderate; 15-21 severe): 0 Source: Developed by Drs. Rupert Wilson, Shaye Russell, David Cleary and colleagues, with an educational kayleigh from [employer]. Review of Systems Const Denies chills, Reports fatigue, Denies fever(s) and Denies headache(s) ENT Denies dysphagia, Denies dizziness, Denies otalgia, Denies headache(s), Denies nasal discharge, Denies neck pain, Denies odynophagia and Denies sore throat Card Reports chest pain (recurrent, over the anterior chest wall - ongoing for years), Denies palpitations and Reports dyspnea on exertion (mild) Resp Denies chest congestion, Denies cough, Reports dyspnea on exertion (mild) and Denies wheezing GI Denies abdominal pain, Denies constipation, Denies dysphagia, Denies heartburn, Denies diarrhea, Denies nausea, Denies odynophagia and Denies vomiting Details: 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 Denies hematuria Musc Details: (+) right pelvic and right hip pain - s/p ORIF a couple of years ago Reports back pain (over the lower back (chronic) - increasing lately), Reports myalgias (chronic diffuse pain), Reports arthralgias (both shoulders and multiple joints - see HPI) and Denies neck pain Skin/Breast Details: (+) small nodular lesions on the right side of the jaw and on the left facial area; also (+) lesion over the right inguinal area - this is being addressed by [facility] Denies rash Neuro Denies dizziness, Denies headache(s) and Reports memory loss Psych Reports anxiety, Reports depression, Reports memory loss and Reports mood swings Endo Reports fatigue and Denies palpitations Aller/Immun Denies wheezing Physical exam (Primary Care) Vital Signs: Last Vital Signs Pulse 72 09/29/23 13:36 BP 112/72 09/29/23 13:36 Pulse Ox 100 09/29/23 13:36 Oxygen Delivery Method Room Air 09/29/23 13:36 BMI result Body Mass Index 26.0 Tobacco/Smoking Status: Tobacco use Status Tobacco use date assessed 09/29/23 09/29/23 13:51 Patient Tobacco Use Status Former Tobacco user 09/29/23 13:51 Tobacco use type Cigarette 09/29/23 13:51 e-Cigarette/Vaping Use Never Used 09/29/23 13:51 PHQ-9: PHQ-9 Score PHQ-9: Total score 0 09/29/23 14:24 Depression Screening Interpretation: Negative (is on Rx for depression) Thrive Assessment: Date of Thrive Assessment Date Thrive assessed 09/29/23 09/29/23 13:51 Currently or been in a relationship where the following occur: no concerns reported Const General: no acute distress and alert HENMT Ears: TM's normal bilaterally and EAC's normal Throat: Yes posterior oropharynx normal and Yes tonsils normal (no TP congestion noted) Neck Other: (+) multiple diffuse tender points over the neck and back Neck: Yes no lymphadenopathy and Yes tender (over the cervical spine and paraspinal areas bilaterally) Resp Auscultation: clear to auscultation bilaterally, no rales and no wheezes Cardio Rate: regular rate Rhythm: regular rhythm Heart sounds: no murmurs GI Other: (+) cystostomy bag over the right side of the lower abdomen Palpation (GI): Soft to palpation and nontender Auscultation: normal bowel sounds Back/Spine/Pelvis Cervical Spine: cervical muscular tenderness Thoracic/Lumbar Spine: paraspinal muscle tenderness bilaterally (over the cervical and thoracolumbar spine (diffuse)) and lumbar spinal tenderness Extrem General: Yes no clubbing, cyanosis or edema Right upper extremity: shoulder/upper arm Details: tenderness Location: of the A-C joint Left upper extremity: shoulder/upper arm Details: tenderness Location: of the A-C joint, wrist (increased tenderness) and hand Details: tenderness (left hand contracts painfully on and off) Right lower extremity: hip/thigh Details: tenderness Location: of the hip and knee Details: tenderness; no swelling Left lower extremity: knee Details: tenderness; no swelling Psych Affect: Sad affect present and Blunted affect present Results Reviewed Results Reviewed: Laboratory Tests 07/22/23 07/22/23 16:13 16:45 WBC 5.3 Hgb 13.7 Hct 41.9 Plt Count 330 Sodium 138 Potassium 3.8 Creatinine 0.75 Estimated GFR > 60 Fasting Glucose 97 AST 16 ALT 19 Triglycerides 334 H Cholesterol 286 H LDL Cholesterol, Calc 177 H HDL Cholesterol 43 25-OH Vitamin D Total 26.6 L TSH 1.78 Ur Specific [place] 1.015 Urine Protein Trace Urine Glucose (UA) Negative Urine Blood Negative Urine Nitrite Negative Ur Leukocyte Esterase Large (3+) H Assessment and Plan Assessment & Plan (1) Mixed hyperlipidemia: Code(s): E78.2 - Mixed hyperlipidemia Plan: Results of her labs done a couple of months ago reviewed and discussed with patient - she is advised that her cholesterol levels have increased significantly from previous Patient's admits that patient has been skipping her cholesterol meds at times, especially when she does not feel good Have instructed her to make sure she takes her cholesterol meds regularly/daily Continue Atorvastatin 20 mg QD and Fenofibrate 145 mg QD Reinforced low cholesterol diet Will recheck her labs and fasting lipids in 3 months for follow-up (2) Benign essential hypertension: Code(s): I10 - Essential (primary) hypertension Plan: Reinforced low sodium diet - goal is systolic BP of at least 130 mm or less Continue Lisinopril 10 mg QD and Hydrochlorothiazide 12.5 mg QD (3) Lumbar degenerative disc disease: Code(s): M51.36 - Other intervertebral disc degeneration, lumbar region Plan: (+) chronic low back pain / failed back syndrome - she has had a total of 5 back surgeries done and states that none of them have helped much Reinforced activity and weight lifting restrictions Continue Gabapentin 600 mg 3 times a day Continue Oxycodone 10 mg every 6 hours as needed; reminded again that she can take 1/2 tablet during the daytime if she feels that she does not need the full 10 mg but should NOT TAKE MORE THAN 4 TABLETS A DAY We have been able to cut back on her previous Oxycodone dosage, which used to be a lot higher, and she currently appears to be at her baseline on her current dosage even though she would report that they do not help when she has flare ups of her PMR and/or fibromyalgia Have recommended that she follow up with pain management but she declined, as she does not believe that they have anything helpful to offer her at this time (4) Fibromyalgia: Code(s): M79.7 - Fibromyalgia Plan: Patient is again encouraged to continue with regular exercise and physical activity as tolerated to manage her fibromyalgia symptoms although she appears to continue to experience frequent flare ups and significant chronic diffuse pain She has what most likely are multiple pain generators in addition to her fibromyalgia, including polymyalgia rheumatica (has failed Methotrexate for steroid sparing and she is now on Humira - started on March 2022), as well as her cervical and lumbar degenerative disc disease and osteoarthritis Her Humira was interrupted for a while with development of a rash, which cleared up with oral Prednisone; was started back on Humira by Dr. Aburto last month at 40 mg injection every other week Wsa also started additionally on Leflunamide 10 mg QD by rheumatology - has reportedly been advised that she now has rheumatoid arthritis Continue Carisoprodol 350 mg TID PRN as well as her Oxycodone PRN for pain; is also on Gabapentin 600 mg TID Follow-up with rheumatology (Dr. Aburto in [place]) as scheduled (5) Polymyalgia rheumatica: Code(s): M35.3 - Polymyalgia rheumatica Plan: Continue Humira injection 40 mg every other week Follow up with rheumatology as scheduled (6) Fracture of right pelvis: Comment: S/P ORIF by Dr. Alicea on 06/30/2020 Code(s): S32.9XXA - Fracture of unspecified parts of lumbosacral spine and pelvis, initial encounter for closed fracture Qualifiers: Encounter type: sequela Fracture alignment: nondisplaced Fracture type: closed Pelvic bone location: acetabulum Sublocation of acetabulum: unspecified portion of acetabulum Qualified Code(s): S32.401S - Unspecified fracture of right acetabulum, sequela Plan: Per orthopedic follow up office notes, this has been treated and resolved and patient has experienced significant improvement of her symptoms with physical therapy and rehab and reported that this is back to her baseline level of pain and functioning Patient has been experiencing increased pain in both hips, especially since she fell (twice) after her hip surgery back in 2020 Follow up with orthopedics ([facility]) as scheduled or as needed (7) Recurrent malignant neoplasm of bladder: Code(s): C67.9 - Malignant neoplasm of bladder, unspecified Plan: S/P total cystectomy with urinary diversion in June 2019; she currently still has a urostomy bag on the right side of her lower abdomen Follow up with urology as scheduled Was advised at her follow up visit last year that she does not appear to have any recurrence of her bladder cancer so far (8) Bilateral shoulder pain: Code(s): M25.511 - Pain in right shoulder; M25.512 - Pain in left shoulder Qualifiers: Chronicity: unspecified Qualified Code(s): M25.511 - Pain in right shoulder; M25.512 - Pain in left shoulder Plan: Reportedly had rotator cuff tendinitis and tears in both shoulders (left shoulder MRI done in April 2020) but has not had any shoulder surgery or procedures done in the past Symptoms have improved significantly eventually with PT/OT, which were interrupted when she suffered her hip fracture Currently still reports (+) recurrent shoulder pains although these are now more likely due to flare ups of her fibromyalgia and/or PMR Follow up with orthopedics as scheduled (9) Bilateral knee pain: Code(s): M25.561 - Pain in right knee; M25.562 - Pain in left knee Qualifiers: Chronicity: unspecified Qualified Code(s): M25.561 - Pain in right knee; M25.562 - Pain in left knee Plan: X-rays of both knees done in July 2023 revealed (+) mild degenerative changes in both knees (10) GERD (gastroesophageal reflux disease): Code(s): K21.9 - Gastro-esophageal reflux disease without esophagitis Qualifiers: Esophagitis presence: without esophagitis Qualified Code(s): K21.9 - Gastro-esophageal reflux disease without esophagitis Plan: Dietary restrictions reinforced Continue Esomeprazole 40 mg QD (11) Constipation: Code(s): K59.00 - Constipation, unspecified Qualifiers: Constipation type: unspecified constipation type Qualified Code(s): K59.00 - Constipation, unspecified Plan: Reinforced increased oral fluids and dietary fiber Continue Miralax 17 gm QD and Colace 100 mg BID PRN (12) Anxiety: Code(s): F41.9 - Anxiety disorder, unspecified Plan: Continue Lorazepam 2 mg TID PRN and Hydroxyzine 25 mg TID PRN Is also on Sertraline, which helps with her anxiety somewhat Advised again to consider going for therapy/counseling as this may help her manage and cope with her anxiety issues better - will call for referral if she decides to go for counseling (13) Depression: Code(s): F32.9 - Major depressive disorder, single episode, unspecified Qualifiers: Active/Remission status: currently active Depression Type: major depressive disorder Major depression episode severity: unspecified Major depression recurrence: recurrent Qualified Code(s): F33.9 - Major depressive disorder, recurrent, unspecified Plan: Continue Sertraline 200 mg QD She still appears very depressed and tearful about her physical incapacities and non-existent QOL as well as reported stressors in life Patient has repeatedly declined offer to refer her to psychiatry and for counseling - states that she just has too many appointments on her plate right now (14) Overweight (BMI 25.0-29.9): Code(s): E66.3 - Overweight Plan: Reinforced diet/exercise as tolerated/lose weight although her overall mobility is very poor and sedentary, in part due to her multiple conditions, so there is no realistic expectations on this Plan Follow up in 3 months Orders: Orders Complete Blood Count Auto Diff 3 Months D64.9 - Anemia, unspecified Lipid Panel 3 Months E78.00 - Pure hypercholesterolemia, unspecified UA CC w/rflx Micro + Cult 3 Months R30.0 - Dysuria Comprehensive [place]. Panel Fast 3 Months E78.00 - Pure hypercholesterolemia, unspecified TSH reflex Free T4 3 Months E78.00 - Pure hypercholesterolemia, unspecified Vitamin D 25-OH Total 3 Months E55.9 - Vitamin D deficiency, unspecified Coding Level of Care Code Est Pt Level 4 (40877) Complex EM visit Add On G2211 Diagnoses Mixed hyperlipidemia E78.2 Benign essential hypertension I10 Lumbar degenerative disc disease M51.36 Fibromyalgia M79.7 Polymyalgia rheumatica M35.3 Closed nondisplaced fracture of right acetabulum, unspecified portion of acetabulum, sequela S32.401S Encounter type: sequela Fracture alignment: nondisplaced Fracture type: closed Pelvic bone location: acetabulum Sublocation of acetabulum: unspecified portion of acetabulum Recurrent malignant neoplasm of bladder C67.9 Bilateral shoulder pain, unspecified chronicity M25.511; M25.512 Chronicity: unspecified Pain in both knees, unspecified chronicity M25.561; M25.562 Chronicity: unspecified Gastroesophageal reflux disease without esophagitis K21.9 Esophagitis presence: without esophagitis Constipation, unspecified constipation type K59.00 Constipation type: unspecified constipation type Anxiety F41.9 Episode of recurrent major depressive disorder, unspecified depression episode severity F33.9 Active/Remission status: currently active Depression Type: major depressive disorder Major depression episode severity: unspecified Major depression recurrence: recurrent Overweight (BMI 25.0-29.9) E66.3
[2023-09-29 13:36] VITALS: BP 112/72; PULSE 72; O2SAT 100; BMI 26.0
== END 2023-09-29 14:51 | disposition home or self-care (01) ==
PROVIDERS: PCP Internal Medicine; Visit Provider Internal Medicine
DX: E78.2 Mixed hyperlipidemia (principal); M35.3 Polymyalgia rheumatica; C67.9 Malignant neoplasm of bladder, unspecified; F33.9 Major depressive disorder, recurrent, unspecified; I10 Essential (primary) hypertension; M51.36 Other intervertebral disc degeneration, lumbar region; M79.7 Fibromyalgia; S32.401S Unspecified fracture of right acetabulum, sequela; M25.512 Pain in left shoulder; M25.511 Pain in right shoulder; M25.561 Pain in right knee; M25.562 Pain in left knee
CPT/HCPCS: 99214; G2211

== ENCOUNTER 2024-01-12 14:28 | Outpatient (AMB) | payer MEDICARE, SELFPAY ==
[2024-01-12 14:32] VITALS: BP 124/80; BMI 25.2
--- NOTE | 2024-01-12 14:32 | MHC.PC.OV ---
Vital Signs 01/12/24 14:32 Height 5 ft 1 in Weight 133 lb 6 oz BMI 25.2 BP 124/80 Blood Pressure Location Lt brachial Position Sitting Pulse Source Pulse Oximeter Oxygen Delivery Method Room Air Intake Visit Reasons: hyperlipidemia, HTN, Hx of recurrent bladder cx Caretaker Grounds Required: No Accompanied by: Self / Same As Patient Allergies cephalexin [Keflex] Allergy (Intermediate, Verified 01/12/24 15:04) hives codeine Allergy (Intermediate, Verified 01/12/24 15:04) vomit meperidine [Demerol] Allergy (Intermediate, Verified 01/12/24 15:04) Vomiting tizanidine Allergy (Intermediate, Verified 01/12/24 15:04) Dizziness pregabalin Adverse Reaction (Intermediate, Verified 01/12/24 15:04) double vision, hand tremors bandaids, plastic tape Allergy (Mild, Uncoded 01/12/24 15:04) Rash Medication List - Last Reconciled 01/12/24 by Steve Funez MD albuterol sulfate 90 mcg/actuation (ProAir HFA) 2 puffs inhalation Q4-6H PRN atorvastatin 20 mg PO DAILY betamethasone dipropionate 0.05% 1 appl topical DAILY PRN calcium carbonate (Calcium 600) 600 mg PO BID carisoprodol 250 mg PO TID PRN 28 days cholecalciferol (vitamin D3) 25 mcg PO DAILY docusate sodium (Colace) 100 mg PO BID esomeprazole magnesium (Nexium) 40 mg PO DAILY fenofibrate nanocrystallized 145 mg PO DAILY gabapentin 600 mg PO TID hydrochlorothiazide 12.5 mg PO QAM hydroxyzine HCl 25 mg PO TID PRN 30 days leflunomide 10 mg PO DAILY lidocaine 5% 3 patches topical DAILY lisinopril 10 mg PO DAILY lorazepam 2 mg PO TID PRN 30 days metoprolol succinate ER 50 mg PO DAILY nitroglycerin 0.4 mg sublingual Q5M PRN Nystop (nystatin) 1 appl topical BID PRN 30 days NS ondansetron 4 mg PO Q8H PRN 15 days oxycodone Take 1/2 to 1 tablet every 6 hours only as needed for increased pain; PO every 6 hours PRN; 10 days polyethylene glycol 3350 (Miralax) 17 grams PO DAILY PRN sertraline 200 mg (2 x 100 mg) PO DAILY 30 days tizanidine 4 mg PO TID Tobacco use date assessed: 01/12/24 Fall risk assessment: 2 + Falls in past year Last assessed Fall Risk: 01/12/24 Dental Screening Dental Screen Date: 01/12/24 Did you have a dental visit in the last 12 months?: Yes Did you have a dental problem in the last 6 months where you did not have access to dental care?: No Was dental information given to patient?: Patient has dentist HPI hyperlipidemia, HTN, Hx of recurrent bladder cx HPI Details Patient comes in today for her follow up visit States that she continues to experience increased diffuse myalgia and joint pains Relates that she fell on her face a couple of months ago (thinks that her walker hit a rock and tipped it over) and ended up breaking a couple of her teeth - was brought to [facility] in [place] for further evaluation then Relates that her lower back and joints (hips, knees) have been hurting a lot more since then States that she has also had a sensation of fluid in her right ear for a couple of weeks now and her ear is starting to hurt recently She also has numerous other complaints, including frequent runny nose lately, some random skin lesions on her legs that she states sometimes scanty whitish materials come out of them, a cyst on the left side of her neck as well as lymph nodes on both sides of her neck that are starting to hurt Relates (+) fatigue but she denies any fever or sore throat Denies any headaches or dizziness Denies any exertional chest pains, no increased SOB No nausea/vomiting, no abdominal pain No change in bowel habits noted States that she had some follow up labs done at [facility] a couple of weeks ago - to discuss her results She continues to see Dr. Aburto for rheumatology follow up but states that she is getting frustrated going to him as she feels that he keeps changing his diagnosis or treatment plan every time she goes to see him States that she has self-discontinued her Humira a few weeks ago as she felt that it was not helping; she is still taking her Leflunomide and will be seeing Dr. Aburto in a couple of months for rheumatology follow up [facility] Medical History Wheezing Overweight (BMI 25.0-29.9) Depression Keratotic lesion Bilateral shoulder pain Intertrigo Fracture of right pelvis Neck pain on right side Cranial pain Mixed hyperlipidemia Obesity (BMI 30-39.9) Anxiety Fibromyalgia Recurrent malignant neoplasm of bladder Benign essential hypertension Polymyalgia rheumatica Lumbar degenerative disc disease Surgical History History of biopsy History of colonoscopy History of hip surgery S/P ORIF (open reduction internal fixation) fracture (~06/2020) History of lumbosacral spine surgery Status post left foot surgery (~10/12/14) Hx of total cystectomy (~06/29/19) History of oral surgery (~04/2016) Status post cystourethroscopy with dilation of urethral stricture (~05/2015) Hx of tonsillectomy Family History Father Hypertension CVD (cardiovascular disease) Cancer Mother Stroke Social History Housing: House Alcohol intake: current Alcohol intake frequency: holidays/special occasions only Alcohol type: wine Patient Tobacco Use Status: Former Tobacco user Tobacco use type: Cigarette Cigarettes Per Day: 10 Years Smoked: 20 e-Cigarette/Vaping Use: Never Used Second Hand Smoke Exposure: Yes service: No Current occupational status: retired Cognitive needs: Yes (walker ) Hearing needs: No Vision needs: Yes Questionnaire PHQ-9 Over the last 2 weeks, how often have you been bothered by any of the following problems? 1. Little interest or pleasure in doing things: not at all 2. Feeling down, depressed, or hopeless: not at all 3. Trouble falling or staying asleep, or sleeping too much: not at all 4. Feeling tired or having little energy: not at all 5. Poor appetite or overeating: not at all 6. Feeling bad about yourself - or that you are a failure or have let yourself or your family down: not at all 7. Trouble concentrating on things, such as reading the newspaper or watching television: not at all 8. Moving or speaking so slowly that other people could have noticed. Or the opposite - being so fidgety or restless that you have been moving around a lot more than usual: not at all 9. Thoughts that you would be better off or of hurting yourself in some way: not at all Total score: 0 Depression Screening Interpretation: Negative (is on Rx for depression) Depression Screening Done: Yes 63324 - PHQ-9 Billing: Yes Source: Developed by Drs. Rupert Wilson, Shaye Russell, David Cleary and colleagues, with an educational kayleigh from [employer]. Thrive Questionnaire Date Thrive assessed: 01/12/24 I am a: Patient What is your living situation today?: I have a steady place to live Within the past 12 months, did the food you bought not last and you didn't have the money to get more?: Never true Within the past 12 months, did you worry whether your food would run out before you got money to buy more?: Never true Do you have trouble paying for medicines?: No Do you have trouble getting transportation to medical appointments?: No Do you have trouble paying your heating and electricity bill?: No Do you have trouble taking care of your child, family member or friend?: No Do you have trouble with day-to-day activities such as bathing, preparing meals, shopping, managing finances, etc.?: No Are you currently unemployed and looking for a job?: No Are you interested in more education?: No Please select the resources that you would like help with: None Currently or been in a relationship where the following occur: No concerns reported THRIVE Score: 0 AUDIT C Alcohol Use Questionnaire (AUDIT-C) 1. How often do you have a drink containing alcohol?: Never 3. How often do you have six or more drinks on one occasion?: Never Total Score: 0 Score Reviewed/Action Taken: Yes MORGAN-7 AMB Questionnaire MORGAN-7 Date MORGAN - 7 assessed: 01/12/24 Feeling nervous, anxious, or on edge: 0 = Not at all Not being able to stop or control worryin = Not at all Worrying too much about different things: 0 = Not at all Trouble relaxin = Not at all Being so restless that it is hard to sit still: 0 = Not at all Becoming easily annoyed or irritable: 0 = Not at all Feeling afraid as if something awful might happen: 0 = Not at all Total MORGAN-7 score (0-4 normal; 5-9 mild; 10-14 moderate; 15-21 severe): 0 Source: Developed by Drs. Rupert Wilson, Shaye Russell, David Cleary and colleagues, with an educational kayleigh from [employer]. Review of Systems Const Denies chills, Reports excessive sweating, Reports fatigue, Denies fever(s) and Denies headache(s) ENT Denies dysphagia, Denies dizziness, Reports otalgia (right ear - feels like there is fluid in her ear), Denies headache(s), Reports nasal discharge (increased lately), Denies neck pain, Denies odynophagia and Denies sore throat Card Reports chest pain (recurrent, over the anterior chest wall - ongoing for years), Denies palpitations and Reports dyspnea on exertion (mild) Resp Denies chest congestion, Denies cough, Reports dyspnea on exertion (mild) and Denies wheezing GI Denies abdominal pain, Denies constipation, Denies dysphagia, Denies heartburn, Denies diarrhea, Denies nausea, Denies odynophagia and Denies vomiting Details: 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 Denies hematuria Musc Details: (+) right pelvic and right hip pain - s/p ORIF a couple of years ago Reports back pain (over the lower back (chronic) - increasing lately), Reports myalgias (chronic diffuse pain), Reports arthralgias (both shoulders and multiple joints - see HPI) and Denies neck pain Skin/Breast Details: (+) skin lesions on legs; cyst on left side of the neck - see HPI Reports as per HPI and Denies rash Neuro Denies dizziness, Denies headache(s) and Reports memory loss Psych Reports anxiety, Reports depression, Reports memory loss and Reports mood swings Endo Reports excessive sweating, Reports fatigue and Denies palpitations Aller/Immun Denies wheezing Physical exam (Primary Care) Vital Signs: Last Vital Signs BP 124/80 01/12/24 14:32 Oxygen Delivery Method Room Air 01/12/24 14:32 BMI result Body Mass Index 25.2 Tobacco/Smoking Status: Tobacco use Status Tobacco use date assessed 01/12/24 01/12/24 14:43 Patient Tobacco Use Status Former Tobacco user 01/12/24 14:43 Tobacco use type Cigarette 01/12/24 14:43 e-Cigarette/Vaping Use Never Used 01/12/24 14:43 PHQ-9: PHQ-9 Score PHQ-9: Total score 0 01/12/24 15:36 Depression Screening Interpretation: Negative (is on Rx for depression) Thrive Assessment: Date of Thrive Assessment Date Thrive assessed 01/12/24 01/12/24 14:43 Currently or been in a relationship where the following occur: No concerns reported Const General: no acute distress and alert HENMT Ears: TM normal on the left, EAC's normal and TM abnormal erythematous on the right General nose exam: Nasal discharge present clear Throat: Yes posterior oropharynx normal and Yes tonsils normal (no TP congestion noted) Neck Other: (+) multiple diffuse tender points over the neck and back Neck: Yes no lymphadenopathy and Yes tender (over the cervical spine and paraspinal areas bilaterally) Resp Auscultation: clear to auscultation bilaterally, no rales and no wheezes Cardio Rate: regular rate Rhythm: regular rhythm Heart sounds: no murmurs GI Other: (+) cystostomy bag over the right side of the lower abdomen Palpation (GI): Soft to palpation and nontender Auscultation: normal bowel sounds Back/Spine/Pelvis Cervical Spine: cervical muscular tenderness Thoracic/Lumbar Spine: paraspinal muscle tenderness bilaterally (over the cervical and thoracolumbar spine (diffuse)) and lumbar spinal tenderness Skin Other: (+) few scattered lesions on both lower legs Extrem General: Yes no clubbing, cyanosis or edema Right upper extremity: shoulder/upper arm Details: tenderness Location: of the A-C joint Left upper extremity: shoulder/upper arm Details: tenderness Location: of the A-C joint, wrist (increased tenderness) and hand Details: tenderness (left hand contracts painfully on and off) Right lower extremity: hip/thigh Details: tenderness Location: of the hip and knee Details: tenderness; no swelling Left lower extremity: knee Details: tenderness; no swelling Psych Affect: Sad affect present and Blunted affect present Coding Level of Care Code Est Pt Level 4 (88964) Complex EM visit Add On G2211 Diagnoses Mixed hyperlipidemia E78.2 Benign essential hypertension I10 Lumbar degenerative disc disease M51.36 Fibromyalgia M79.7 Polymyalgia rheumatica M35.3 Closed nondisplaced fracture of right acetabulum, unspecified portion of acetabulum, sequela S32.401S Encounter type: sequela Fracture alignment: nondisplaced Fracture type: closed Pelvic bone location: acetabulum Sublocation of acetabulum: unspecified portion of acetabulum Recurrent malignant neoplasm of bladder C67.9 Bilateral shoulder pain, unspecified chronicity M25.511; M25.512 Chronicity: unspecified Pain in both knees, unspecified chronicity M25.561; M25.562 Chronicity: unspecified Gastroesophageal reflux disease without esophagitis K21.9 Esophagitis presence: without esophagitis Acute otitis externa of right ear, unspecified type H60.501 Otitis externa type: unspecified type Chronicity: acute Constipation, unspecified constipation type K59.00 Constipation type: unspecified constipation type Anxiety F41.9 Episode of recurrent major depressive disorder, unspecified depression episode severity F33.9 Active/Remission status: currently active Depression Type: major depressive disorder Major depression episode severity: unspecified Major depression recurrence: recurrent Overweight (BMI 25.0-29.9) E66.3
== END 2024-01-12 15:47 | disposition home or self-care (01) ==
PROVIDERS: PCP Internal Medicine; Visit Provider Internal Medicine
DX: E78.2 Mixed hyperlipidemia (principal); I10 Essential (primary) hypertension; M51.36 Other intervertebral disc degeneration, lumbar region; M79.7 Fibromyalgia; M35.3 Polymyalgia rheumatica; S32.401S Unspecified fracture of right acetabulum, sequela; C67.9 Malignant neoplasm of bladder, unspecified; M25.511 Pain in right shoulder; M25.512 Pain in left shoulder; M25.561 Pain in right knee; M25.562 Pain in left knee; F33.9 Major depressive disorder, recurrent, unspecified; K21.9 Gastro-esophageal reflux disease without esophagitis; H60.501 Unspecified acute noninfective otitis externa, right ear; K59.00 Constipation, unspecified; F41.9 Anxiety disorder, unspecified; E66.3 Overweight

== ENCOUNTER → 2024-01-12 14:28 | Outpatient (BNVA) | payer MEDICARE, SELFPAY | PROVIDERS: PCP Internal Medicine; Visit Provider Internal Medicine | DX: E78.2 Mixed hyperlipidemia (principal); I10 Essential (primary) hypertension; M51.36 Other intervertebral disc degeneration, lumbar region; M79.7 Fibromyalgia; M35.3 Polymyalgia rheumatica; S32.401S Unspecified fracture of right acetabulum, sequela; C67.9 Malignant neoplasm of bladder, unspecified; M25.511 Pain in right shoulder; M25.512 Pain in left shoulder; M25.561 Pain in right knee; M25.562 Pain in left knee; K21.9 Gastro-esophageal reflux disease without esophagitis; K59.00 Constipation, unspecified; F41.9 Anxiety disorder, unspecified; F33.9 Major depressive disorder, recurrent, unspecified; E66.3 Overweight; Z68.25 Body mass index [BMI] 25.0-25.9, adult; Z71.3 Dietary counseling and surveillance | CPT/HCPCS: 99212 ==

== ENCOUNTER 2024-08-10 14:39 | Outpatient (AMB) | payer MEDICARE, SELFPAY ==
[2024-08-10 14:58] VITALS: BP 122/66; BMI 25.6
--- NOTE | 2024-08-10 14:58 | MHC.PC.OV ---
Vital Signs 08/10/24 14:58 Height 5 ft 1 in Weight 135 lb 6 oz BMI 25.6 BP 122/66 Blood Pressure Location Lt brachial Position Sitting Pulse Source Pulse Oximeter Oxygen Delivery Method Room Air Intake Visit Reasons: 4mth f/u Cutter Tender Required: No Accompanied by: Spouse Allergies cephalexin [Keflex] Allergy (Intermediate, Verified 08/10/24 15:16) hives codeine Allergy (Intermediate, Verified 08/10/24 15:16) vomit meperidine [Demerol] Allergy (Intermediate, Verified 08/10/24 15:16) Vomiting tizanidine Allergy (Intermediate, Verified 08/10/24 15:16) Dizziness pregabalin Adverse Reaction (Intermediate, Verified 08/10/24 15:16) double vision, hand tremors bandaids, plastic tape Allergy (Mild, Uncoded 08/10/24 15:16) Rash Medication List - Last Reconciled 08/10/24 by Steve Funez MD albuterol sulfate 90 mcg/actuation (ProAir HFA) 2 puffs inhalation Q4-6H PRN atorvastatin 20 mg PO DAILY betamethasone dipropionate 0.05% 1 appl topical DAILY PRN calcium carbonate (Calcium 600) 600 mg PO BID carisoprodol 250 mg PO TID PRN 28 days cholecalciferol (vitamin D3) 25 mcg PO DAILY docusate sodium (Colace) 100 mg PO BID esomeprazole magnesium (Nexium) 40 mg PO DAILY fenofibrate nanocrystallized 145 mg PO DAILY gabapentin 600 mg PO TID hydrochlorothiazide 12.5 mg PO QAM hydroxyzine HCl 25 mg PO TID PRN 30 days leflunomide 10 mg PO DAILY lidocaine 5% 3 patches topical DAILY lisinopril 10 mg PO DAILY loratadine 10 mg PO DAILY PRN 90 days lorazepam 2 mg PO TID PRN 30 days metoprolol succinate ER 50 mg PO DAILY nemolizumab-ilto (Nemluvio) 30 mg subcut Q4W nitroglycerin 0.4 mg sublingual Q5M PRN Nystop (nystatin) 1 appl topical BID PRN 30 days NS ondansetron 4 mg PO Q8H PRN 15 days oxycodone Take 1/2 to 1 tablet every 6 hours only as needed for increased pain; PO every 6 hours PRN; 10 days polyethylene glycol 3350 (Miralax) 17 grams PO DAILY PRN sertraline 200 mg (2 x 100 mg) PO DAILY 30 days tizanidine 4 mg PO Q8H PRN Tobacco use date assessed: 08/10/24 Fall risk assessment: 1 Fall in past year Last assessed Fall Risk: 08/10/24 Dental Screening Dental Screen Date: 08/10/24 Did you have a dental visit in the last 12 months?: Yes Did you have a dental problem in the last 6 months where you did not have access to dental care?: No Was dental information given to patient?: Patient has dentist HPI 4mth f/u HPI Details Patient comes in today for her follow up visit As before, she is complaining of a long list of problems, symptoms and conditions, including her chronic and diffuse pain, which she feels are getting worse overall and states that her current medications are barely helping her She is also complaining of generalized weakness and recurrent tremors in her hands and feet, which she feels are contributing to increasing unsteadiness and difficulty with ambulation and would like to request for referral to PT and OT She also reports increasing problems with memory recall and would like to see Neurology for further evaluation Patient adds that she has been experiencing problems with swallowing lately She denies any sore throat or any recent cough or cold symptoms She denies any headaches but reports on and off dizziness, which she thinks is related to her unsteadiness Denies any exertional chest pains; (+) TAYLOR noted lately States that she still has recurrent nausea and takes her Ondansetron PRN with some relief; no vomiting, no abdominal pain and no change in bowel habits lately Patient thinks that she had some labs done the hospital [facility] recently although she is not exactly sure when she did them We have no copy of any recent lab results in her chart [facility] Medical History (Updated 08/17/24 @ 05:20 by Steve Funez MD) Essential hypertension Wheezing Overweight (BMI 25.0-29.9) Depression Keratotic lesion Bilateral shoulder pain Intertrigo Fracture of right pelvis Neck pain on right side Cranial pain Mixed hyperlipidemia Obesity (BMI 30-39.9) Anxiety Fibromyalgia Recurrent malignant neoplasm of bladder Benign essential hypertension Polymyalgia rheumatica Lumbar degenerative disc disease Surgical History History of biopsy History of colonoscopy History of hip surgery S/P ORIF (open reduction internal fixation) fracture (~06/2020) History of lumbosacral spine surgery Status post left foot surgery (~10/12/14) Hx of total cystectomy (~06/29/19) History of oral surgery (~04/2016) Status post cystourethroscopy with dilation of urethral stricture (~05/2015) Hx of tonsillectomy Family History Father Hypertension CVD (cardiovascular disease) Cancer Mother Stroke Social History Housing: House Alcohol intake: current Alcohol intake frequency: holidays/special occasions only Alcohol type: wine Patient Tobacco Use Status: Former Tobacco user Tobacco use type: Cigarette Cigarettes Per Day: 10 Years Smoked: 20 e-Cigarette/Vaping Use: Never Used Second Hand Smoke Exposure: Yes service: No Current occupational status: retired Cognitive needs: Yes (walker ) Hearing needs: No Vision needs: Yes Questionnaire PHQ-9 Over the last 2 weeks, how often have you been bothered by any of the following problems? 1. Little interest or pleasure in doing things: several days 2. Feeling down, depressed, or hopeless: not at all 3. Trouble falling or staying asleep, or sleeping too much: several days 4. Feeling tired or having little energy: several days 5. Poor appetite or overeating: not at all 6. Feeling bad about yourself - or that you are a failure or have let yourself or your family down: several days 7. Trouble concentrating on things, such as reading the newspaper or watching television: not at all 8. Moving or speaking so slowly that other people could have noticed. Or the opposite - being so fidgety or restless that you have been moving around a lot more than usual: not at all 9. Thoughts that you would be better off or of hurting yourself in some way: not at all Total score: 4 Depression Screening Interpretation: Positive Depression Screening Follow-up: Existing condition and In treatment Depression Screening Done: Yes 62824 - PHQ-9 Billing: Yes Source: Developed by Drs. Rupert Wilson, David Morales and colleagues, with an educational kayleigh from nap- Naturally Attached Parents. Thrive Questionnaire Date Thrive assessed: 08/10/24 I am a: Parent/Caregiver What is your living situation today?: I have a steady place to live Within the past 12 months, did the food you bought not last and you didn't have the money to get more?: Never true Within the past 12 months, did you worry whether your food would run out before you got money to buy more?: Never true Do you have trouble paying for medicines?: No Do you have trouble getting transportation to medical appointments?: No Do you have trouble paying your heating and electricity bill?: No Do you have trouble taking care of your child, family member or friend?: No Do you have trouble with day-to-day activities such as bathing, preparing meals, shopping, managing finances, etc.?: No Are you currently unemployed and looking for a job?: No Are you interested in more education?: No Please select the resources that you would like help with: None Currently or been in a relationship where the following occur: No concerns reported THRIVE Score: 0 AUDIT C Alcohol Use Questionnaire (AUDIT-C) 1. How often do you have a drink containing alcohol?: Never 3. How often do you have six or more drinks on one occasion?: Never Total Score: 0 Score Reviewed/Action Taken: Yes MORGAN-7 AMB Questionnaire MORGAN-7 Date MORGAN - 7 assessed: 08/10/24 Feeling nervous, anxious, or on edge: 0 = Not at all Not being able to stop or control worryin = Not at all Worrying too much about different things: 1 = Several days Trouble relaxin = Not at all Being so restless that it is hard to sit still: 0 = Not at all Becoming easily annoyed or irritable: 0 = Not at all Feeling afraid as if something awful might happen: 0 = Not at all Total MORGAN-7 score (0-4 normal; 5-9 mild; 10-14 moderate; 15-21 severe): 1 Source: Developed by Shaye Cavanaugh Kurt Kroenke and colleagues, with an educational kayleigh from nap- Naturally Attached Parents. Review of Systems Const Denies chills, Reports fatigue, Denies fever(s), Denies headache(s) and Reports weakness ENT Reports dysphagia, Reports dizziness (on and off), Denies otalgia, Denies headache(s), Denies neck pain, Denies odynophagia and Denies sore throat Card Reports chest pain (recurrent, over the anterior chest wall - ongoing for years), Denies palpitations and Reports dyspnea on exertion (mild) Resp Denies chest congestion, Denies cough and Reports dyspnea on exertion (mild) GI Denies abdominal pain, Denies constipation, Reports dysphagia, Denies heartburn, Denies diarrhea, Reports nausea (on and off), Denies odynophagia and Denies vomiting Details: 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 Musc Details: (+) right pelvic and right hip pain - s/p ORIF a couple of years ago Reports abnormal gait (unsteady), Reports back pain (over the lower back (chronic) - increasing lately), Reports myalgias (chronic diffuse pain), Reports arthralgias (both shoulders and multiple joints - see HPI) and Denies neck pain Skin/Breast Denies rash Neuro Reports abnormal gait (unsteady), Reports dizziness (on and off), Denies headache(s), Reports memory loss, Reports tremor(s) and Reports weakness Psych Reports anxiety, Reports depression, Reports memory loss and Reports mood swings Endo Reports fatigue and Denies palpitations Physical exam (Primary Care) Vital Signs: Last Vital Signs BP 122/66 08/10/24 14:58 Oxygen Delivery Method Room Air 08/10/24 14:58 BMI result Body Mass Index 25.6 Tobacco/Smoking Status: Tobacco use Status Tobacco use date assessed 08/10/24 08/10/24 15:04 Patient Tobacco Use Status Former Tobacco user 08/10/24 15:04 Tobacco use type Cigarette 08/10/24 15:04 e-Cigarette/Vaping Use Never Used 08/10/24 15:04 PHQ-9: PHQ-9 Score PHQ-9: Total score 4 08/11/24 05:29 Depression Screening Interpretation: Positive Depression Screening Follow-up: Existing condition and In treatment Thrive Assessment: Date of Thrive Assessment Date Thrive assessed 08/10/24 08/10/24 15:04 Currently or been in a relationship where the following occur: No concerns reported Const General: no acute distress and alert HENMT Ears: TM's normal bilaterally and EAC's normal Throat: Yes posterior oropharynx normal and Yes tonsils normal (no TP congestion noted) Neck Other: (+) multiple diffuse tender points over the neck and back Neck: No lymphadenopathy and Yes tender (over the cervical spine and paraspinal areas bilaterally) Thyroid: Thyroid normal Resp Auscultation: clear to auscultation bilaterally, no rales and no wheezes Cardio Rate: regular rate Rhythm: regular rhythm Heart sounds: no murmurs GI Other: (+) cystostomy bag over the right side of the lower abdomen Palpation (GI): Soft to palpation and nontender Auscultation: normal bowel sounds General: Yes no CVA tenderness Back/Spine/Pelvis Back: no CVA tenderness Cervical Spine: cervical muscular tenderness Thoracic/Lumbar Spine: paraspinal muscle tenderness bilaterally (over the cervical and thoracolumbar spine (diffuse)) and lumbar spinal tenderness Skin Rashes: no rashes Extrem General: Yes no clubbing, cyanosis or edema Right upper extremity: shoulder/upper arm Details: tenderness Location: of the A-C joint Left upper extremity: shoulder/upper arm Details: tenderness Location: of the A-C joint, wrist (increased tenderness) and hand Details: tenderness (left hand contracts painfully on and off) Right lower extremity: hip/thigh Details: tenderness Location: of the hip and knee Details: tenderness; no swelling Left lower extremity: knee Details: tenderness; no swelling Coding Level of Care Code Est Pt Level 4 (22463) Diagnoses Mixed hyperlipidemia E78.2 Essential hypertension I10 Degeneration of intervertebral disc of lumbar region with discogenic back pain and lower extremity pain M51.362 Disc-related pain type: discogenic back pain and lower extremity pain Fibromyalgia M79.7 Polymyalgia rheumatica M35.3 Closed nondisplaced fracture of right acetabulum, unspecified portion of acetabulum, sequela S32.401S Encounter type: sequela Pelvic bone location: acetabulum Sublocation of acetabulum: unspecified portion of acetabulum Fracture type: closed Fracture alignment: nondisplaced Recurrent malignant neoplasm of bladder C67.9 Bilateral shoulder pain, unspecified chronicity M25.511; M25.512 Chronicity: unspecified Pain in both knees, unspecified chronicity M25.561; M25.562 Chronicity: unspecified Unsteady gait R26.81 Memory impairment R41.3 Dysphagia, unspecified type R13.10 Dysphagia type: unspecified Gastroesophageal reflux disease without esophagitis K21.9 Esophagitis presence: without esophagitis Constipation, unspecified constipation type K59.00 Constipation type: unspecified constipation type Anxiety F41.9 Episode of recurrent major depressive disorder, unspecified depression episode severity F33.9 Depression Type: major depressive disorder Major depression recurrence: recurrent Active/Remission status: currently active Major depression episode severity: unspecified Obesity (BMI 30-39.9) E66.9 Additional Codes PHQ-9 - 68077 - PHQ-9 Billing: Yes ([id number]) Time Spent (min) 35 Assessment & Plan Assessment & Plan (1) Mixed hyperlipidemia: Code(s): E78.2 - Mixed hyperlipidemia Category: Medical Plan: Am unable to locate any recent follow up lab results on patient and it is likely that she did not get them done recently Reinforced low cholesterol diet Continue Atorvastatin 20 mg QD and Fenofibrate 145 mg QD Will recheck her labs and fasting lipids in 4 months for follow-up (2) Essential hypertension: Code(s): I10 - Essential (primary) hypertension Category: Medical Plan: Reinforced low sodium diet - goal is systolic BP of at least 130 mm or less Continue Lisinopril 10 mg QD and Hydrochlorothiazide 12.5 mg QD (3) Lumbar degenerative disc disease: Code(s): M51.36 - Other intervertebral disc degeneration, lumbar region Category: Medical Qualifiers: Disc-related pain type: discogenic back pain and lower extremity pain Qualified Code(s): M51.362 - Other intervertebral disc degeneration, lumbar region with discogenic back pain and lower extremity pain Plan: (+) chronic low back pain / failed back syndrome - she has had a total of 5 back surgeries done and states that none of them have helped much Reinforced activity and weight lifting restrictions Continue Gabapentin 600 mg 3 times a day Continue Oxycodone 10 mg every 6 hours as needed; reminded again that she can take 1/2 tablet during the daytime if she feels that she does not need the full 10 mg but should NOT TAKE MORE THAN 4 TABLETS A DAY We have been able to cut back on her previous Oxycodone dosage, which used to be a lot higher, and she currently appears to be at her baseline on her current dosage even though she would report that they do not help when she has flare ups of her PMR and/or fibromyalgia Have recommended that she follow up with pain management but she declined, as she does not believe that they have anything helpful to offer her anymore at this time (4) Fibromyalgia: Code(s): M79.7 - Fibromyalgia Category: Medical Plan: Patient is again encouraged to continue with regular exercise and physical activity as tolerated to manage her fibromyalgia symptoms although she appears to continue to experience frequent flare ups and significant chronic diffuse pain She has what most likely are multiple pain generators in addition to her fibromyalgia, including polymyalgia rheumatica (has failed Methotrexate for steroid sparing and she is now on Humira - started on March 2022), as well as her cervical and lumbar degenerative disc disease and osteoarthritis Her Humira was interrupted for a while with development of a rash, which cleared up with oral Prednisone; she was started back on Humira by Dr. Aburto at 40 mg injection every other week once her rash cleared up completely She was also started additionally on Leflunamide 10 mg QD by rheumatology - has reportedly been advised that she now has rheumatoid arthritis Continue Carisoprodol 350 mg TID PRN as well as her Oxycodone PRN for pain; she is also on Gabapentin 600 mg TID Follow-up with rheumatology (Dr. Aburto in [place]) as scheduled although patient is now expressing her unhappiness with Dr. Aburto, who she used to love and rave about a couple of years ago, as she feels that what Dr. Aburto has been doing for her lately has not been helping much (5) Polymyalgia rheumatica: Code(s): M35.3 - Polymyalgia rheumatica Category: Medical Plan: Continue Humira injection 40 mg every other week Follow up with rheumatology as scheduled (6) Fracture of right pelvis: Comment: S/P ORIF by Dr. Alicea on 06/30/2020 Code(s): S32.9XXA - Fracture of unspecified parts of lumbosacral spine and pelvis, initial encounter for closed fracture Category: Medical Qualifiers: Encounter type: sequela Pelvic bone location: acetabulum Sublocation of acetabulum: unspecified portion of acetabulum Fracture type: closed Fracture alignment: nondisplaced Qualified Code(s): S32.401S - Unspecified fracture of right acetabulum, sequela Plan: S/P ORIF by Dr. Alicea on 06/30/2020 Per orthopedic follow up office notes, this has been treated and resolved and patient has experienced significant improvement of her symptoms with physical therapy and rehab and reported that this is back to her baseline level of pain and functioning Patient has been experiencing increased pain in both hips, especially since she fell (twice) after her hip surgery back in 2020 Follow up with orthopedics ([facility]) as scheduled or as needed (7) Recurrent malignant neoplasm of bladder: Code(s): C67.9 - Malignant neoplasm of bladder, unspecified Category: Medical Plan: S/P total cystectomy with urinary diversion in June 2019; she currently still has a urostomy bag on the right side of her lower abdomen Follow up with urology as scheduled She was reportedly advised at her follow up visit last year that she does not appear to have any recurrence of her bladder cancer so far (8) Bilateral shoulder pain: Code(s): M25.511 - Pain in right shoulder; M25.512 - Pain in left shoulder Category: Medical Qualifiers: Chronicity: unspecified Qualified Code(s): M25.511 - Pain in right shoulder; M25.512 - Pain in left shoulder Plan: Patient reportedly had rotator cuff tendinitis and tears in both shoulders (left shoulder MRI done in April 2020) but has not had any shoulder surgery or procedures done in the past Symptoms have improved eventually with PT/OT, which were interrupted when she suffered her hip fracture She currently still reports (+) recurrent shoulder pains although these are now more likely due to flare ups of her fibromyalgia and/or PMR Follow up with orthopedics as scheduled (9) Bilateral knee pain: Code(s): M25.561 - Pain in right knee; M25.562 - Pain in left knee Category: Medical Qualifiers: Chronicity: unspecified Qualified Code(s): M25.561 - Pain in right knee; M25.562 - Pain in left knee Plan: X-rays of both knees done in July 2023 revealed (+) mild degenerative changes in both knees Follow up with orthopedics as scheduled (10) Unsteady gait: Code(s): R26.81 - Unsteadiness on feet Category: Medical Plan: Per request, will refer patient to PT and OT to help her improve her balance, gait and mobility, which she feels have been declining over the past few years (11) Memory impairment: Code(s): R41.3 - Other amnesia Category: Medical Plan: Will refer her to neurology for further evaluation and management of her declining memory recall (12) Dysphagia: Code(s): R13.10 - Dysphagia, unspecified Category: Medical Qualifiers: Dysphagia type: unspecified Qualified Code(s): R13.10 - Dysphagia, unspecified Plan: Will send patient for an upper GI series for further evaluation (13) GERD (gastroesophageal reflux disease): Code(s): K21.9 - Gastro-esophageal reflux disease without esophagitis Category: Medical Qualifiers: Esophagitis presence: without esophagitis Qualified Code(s): K21.9 - Gastro-esophageal reflux disease without esophagitis Plan: Dietary restrictions reinforced Continue Esomeprazole 40 mg QD (14) Constipation: Code(s): K59.00 - Constipation, unspecified Category: Medical Qualifiers: Constipation type: unspecified constipation type Qualified Code(s): K59.00 - Constipation, unspecified Plan: Reinforced increased oral fluids and dietary fiber Have emphasized to patient again that this is most likely due to her chronic opioid Rx Continue Miralax 17 gm QD and Colace 100 mg BID PRN (15) Anxiety: Code(s): F41.9 - Anxiety disorder, unspecified Category: Medical Plan: Continue Lorazepam 2 mg TID PRN and Hydroxyzine 25 mg TID PRN She is also on Sertraline, which helps with her anxiety somewhat Have advised patient again to consider going for therapy/counseling as this may help her manage and cope with her anxiety issues better - states that she will call for referral if she decides to go for counseling (16) Depression: Code(s): F32.9 - Major depressive disorder, single episode, unspecified Category: Medical Qualifiers: Depression Type: major depressive disorder Major depression recurrence: recurrent Active/Remission status: currently active Major depression episode severity: unspecified Qualified Code(s): F33.9 - Major depressive disorder, recurrent, unspecified Plan: Continue Sertraline 200 mg QD She continues to feel very depressed about her physical incapacities and non-existent QOL Patient has repeatedly declined offer to refer her to psychiatry and for counseling - states that she just has too many appointments to go to right now (17) Obesity (BMI 30-39.9): Code(s): E66.9 - Obesity, unspecified Category: Medical Plan: Reinforced diet/exercise as tolerated/lose weight although her overall mobility is very poor and sedentary, in part due to her multiple conditions, so there is no realistic expectations on this Plan Follow up in 4 months Orders: Orders PT Evaluation and Treatment 08/10/24 M62.81 - Muscle weakness (generalized) OT Evaluation and Treatment 08/10/24 R25.1 - Tremor, unspecified, R29.898 - Other symptoms and signs involving the musculoskeletal system Complete Blood Count Auto Diff 4 Months D64.9 - Anemia, unspecified TSH reflex Free T4 4 Months E78.00 - Pure hypercholesterolemia, unspecified Vitamin D 25-OH Total 4 Months E55.9 - Vitamin D deficiency, unspecified [place] upper GI series 08/10/24 R13.10 - Dysphagia, unspecified Comprehensive [place]. Panel Fast 4 Months E78.00 - Pure hypercholesterolemia, unspecified Lipid Panel 4 Months E78.00 - Pure hypercholesterolemia, unspecified UA CC w/rflx Micro + Cult 4 Months R30.0 - Dysuria Vitamin B12 and Folate 4 Months E53.8 - Deficiency of other specified B group vitamins Referrals Neurology Referral R41.3 - Other amnesia
--- OUTSIDE RECORDS SUMMARY | 2024-08-10 17:25 | XMS_ITS | Encounter Summary ---
Author Organization [facility] Address [address] [employer] [facility] [address] [place] [address] Phone Care Team Providers Care Casualty Claim Adjuster Name Role Phone Steve Funez MD Primary Care Provider [phone] James Bullard MD Unavailable [phone] Garrison Mustafa MD Unavailable Tomas De Leon MD Unavailable [phone] Ria Aggarwal MD Unavailable Latonia Tineo MD Unavailable Rupert Alicea MD Unavailable [phone] Steve Funez MD Primary Care Provider [phone] Encounter Details Date Type Department Care Team (Late st Contact Info) Description 10/23/2017 Procedure Pass [facility] [address] [place] [address] Social History Tobacco Use Types Packs/Day Years Used Date Smoking Tobacco: Former Cigarettes 0.5 20 Smokeless Tobacco: Never Comments:Quit 20 years ago Alcohol Use Standard Drinks/Week Comments No 0 (1 standard drink = 0.6 oz pur e alcohol) Sex and Gender Information Value Date Recorded Sex Assigned at Female 07/13/2019 6:15 PM EDT Gender Identity Female 07/13/2019 6:15 PM EDT Sexual Orientation Straight 07/13/2019 6: 15 PM EDT documented as of this encounter Plan of Treatment Upcoming Encounters Date Type Department Care Team (Late st Contact Info) Description 08/20/2023 Procedure Pass [address] [address] 08/20/2024 1:20 PM EDT Appointment [address] [address] Theresa Ovallesford, COMPACTING MACHINE OPERATOR/TENDER [address] [address] [email or web address] 09/15/2024 10:00 AM EDT Telemedicine Department of Urology [address] [place] [address] Theresa Ovalles [place], COMPACTING MACHINE OPERATOR/TENDER [address] [address] [email or web address] documented as of this encounter Visit Diagnoses Not on filedocumented in this encounter Additional Health Concerns Infection Onset Date Last Indicated Resolved Time CoV-Risk Comment:Reviewed by biothreats/ID Dr. Lebron -See note in EPIC COVID negative x 2 Discontinue CoV Risk. Discontinue enhanced respiratory isolation 07/27/2019 07/27/2019 07/28/2019 3:08 PM E DT documented as of this encounter Care Teams Casualty Claim Adjuster Relationship Specialty Start Date End Date Steve Funez MD [address] [place] [address] Dr [address] RADHA FISHER [address] PCP - General Internal Medicine 07/03/15 10/15/21 Steve Funez MD [address] [place] [address] Dr [address] [place] FISHER [address] PCP - General Internal Medicine 10/16/21 James Bullard MD [address] [address] Cardiology 05/05/19 Garrison Mustafa MD [address] [address] Vascular Surgery 05/05/19 Tomas De Leon MD [address] [address] [email or web address] Urology 05/05/19 Ria Aggarwal MD [address] [place] [address] [place] [address] Rheumatology 05/05/19 Latonia Tineo MD [address] [place] [address] Hematology and Oncology 03/30/20 Rupert Alicea MD [address] [place] [address] Orthopedics & Sports Medicine, [facility] [place] [address] Orthopedic Surgery 01/01/21 documented as of this encounter Additional Source Comments The information contained in this document represents components of the legal health record. It is not the complete legal health record.[facility]
--- OUTSIDE RECORDS SUMMARY | 2024-08-10 17:28 | XMS_ITS | Encounter Summary ---
Author Organization [facility] Address [address] [facility] [address] [place] [address] Phone Care Team Providers Care Occupational Therapist Name Role Phone Steve Funez MD Primary Care Provider [phone] James Bullard MD Unavailable [phone] Garrison Mustafa MD Unavailable Tomas De Leon MD Unavailable Ria Aggarwal MD Unavailable [phone] Latonia Tineo MD Unavailable Rupert Alicea MD Unavailable Steve Funez MD Primary Care Provider Encounter Details Date Type Department Care Team (Late st Contact Info) Description 08/16/2019 Procedure Pass [facility], [address] [id number] Social History Tobacco Use Types Packs/Day Years Used Date Smoking Tobacco: Former Cigarettes 0.5 20 0 04/14/1977 - 04/14/1997 Smokeless Tobacco: Never Comments:Quit 20 years ago [...] st Contact Info) Description 08/20/2023 Procedure Pass [address] [address] 08/20/2024 1:20 PM EDT Appointment [address] [address] Theresa Ovalles, CUFF STITCHER [address] [address] [email or web address] 09/15/2024 10:00 AM EDT Telemedicine Department of Urology [address] [place] [address] Theresa Ovalles [place], CUFF STITCHER [address] [address] [email or web address] documented as of this encounter Visit Diagnoses Not on filedocumented in this encounter Care Teams Occupational Therapist Relationship Specialty Start Date End Date Steve Funez MD [address] [place] [address] Dr [address] [place] [address] PCP - General Internal Medicine 07/03/15 10/15/21 Steve Funez MD [address] [place] [address] [address] [place] [address] PCP - General Internal Medicine 10/16/21 James Bullard MD [address] [address] Cardiology 05/05/19 Garrison Mustafa MD [address] [address] Vascular Surgery 05/05/19 Tomas De Leon MD [address] [address] [email or web address] Urology 05/05/19 Ria Aggarwal MD [address] [place] [address] [address] [place] [address] Rheumatology 05/05/19 Latonia Tineo MD [address] [place] [address] Hematology and Oncology 03/30/20 Rupert Alicea MD [address] [place] [address] Orthopedics & Sports Medicine, [facility] [place] [address] [email or web address] Orthopedic Surgery 01/01/21 documented as of this encounter Additional Source Comments The information contained in this document represents components of the legal health record. It is not the complete legal health record.[facility]
--- OUTSIDE RECORDS SUMMARY | 2024-08-10 17:29 | XMS_ITS | Encounter Summary ---
Author Organization [facility] Address [address] [employer] [facility] [address] [place] [address] Phone Care Team Providers Care Chief Meter Reader Name Role Phone Steve Funez MD Primary Care Provider [phone] James Bullard MD Unavailable Garrison Mustafa MD Unavailable Tomas De Leon MD Unavailable Ria Aggarwal MD Unavailable [phone] Latonia Tineo MD Unavailable Rupert Alicea MD Unavailable Steve Funez MD Primary Care Provider Encounter Details Date Type Department Care Team (Late st Contact Info) Description 03/06/2019 Procedure Pass [facility] Supervisor [place] [address] [place] [address] Social History Tobacco Use Types Packs/Day Years [...] st Contact Info) Description 08/20/2023 Procedure Pass [address] [address] 08/20/2024 1:20 PM EDT Appointment [address] [address] Theresa Ovalles, CENTER RECEPTIONIST [address] [address] [email or web address] 09/15/2024 10:00 AM EDT Telemedicine Department of Urology [address] [place] [address] Theresa Ovalles [place], CENTER RECEPTIONIST [address] [address] [email or web address] documented as of this encounter Visit Diagnoses Not on filedocumented in this encounter Additional Health Concerns Infection Onset Date Last Indicated Resolved Time CoV-Risk Comment:Reviewed by biothreats/ID Dr. Lebron -See note in EPIC COVID negative x 2 Discontinue CoV Risk. Discontinue enhanced respiratory isolation 07/27/2019 07/27/2019 07/28/2019 3:08 PM E DT documented as of this encounter Care Teams Chief Meter Reader Relationship Specialty Start Date End Date Steve Funez MD [address] [place] [address] Dr Chandra [address] [place] [address] PCP - General Internal Medicine 07/03/15 10/15/21 Steve Funez MD [address] [place] [address] Dr Chandra [address] [place] [address] PCP - General Internal Medicine 10/16/21 James Bullard MD [address] [address] Cardiology 05/05/19 Garrison Mustafa MD [address] [address] Vascular Surgery 05/05/19 Tomas De Leon MD [address] [address] [email or web address] Urology 05/05/19 Ria Aggarwal MD [address] [place] [address] [place] [address] Rheumatology 05/05/19 Latonia Tineo MD [address] [place] [address] Hematology and Oncology 03/30/20 Rupert Alicea MD [address] [place] [address] Orthopedics & Sports Medicine, [facility] [place] [address] Orthopedic Surgery 01/01/21 documented as of this encounter Additional Source Comments The information contained in this document represents components of the legal health record. It is not the complete legal health record.[facility]
--- OUTSIDE RECORDS SUMMARY | 2024-08-10 17:29 | XMS_ITS | Encounter Summary ---
Author Organization [facility] Address [address] better. [facility] [address] [place] [address] Phone Care Team Providers Care Warehouse Order Puller Name Role Phone Steve Funez MD Primary Care Provider [phone] James Bullard MD Unavailable Garrison Mustafa MD Unavailable Tomas De Leon MD Unavailable Ria Aggarwal MD Unavailable Latonia Tineo MD Unavailable Rupert Alicea MD Unavailable Steve Funez MD Primary Care Provider [phone] Encounter Details Date Type Department Care Team (Late st Contact Info) Description 06/29/2019 Procedure Pass [facility] PERIOPERATIVE DEPT [address] [place] [address] Social History Tobacco Use Types Packs/Day Years [...] st Contact Info) Description 08/20/2023 Procedure Pass [address] [address] 08/20/2024 1:20 PM EDT Appointment [address] [address] Theresa Ovalles, PRESCHOOL PARAPROFESSIONAL [address] [address] [email or web address] 09/15/2024 10:00 AM EDT Telemedicine Department of Urology [address] [address] Theresa Ovall[place], PRESCHOOL PARAPROFESSIONAL [address] [address] [email or web address] documented as of this encounter Visit Diagnoses Not on filedocumented in this encounter Additional Health Concerns Infection Onset Date Last Indicated Resolved Time CoV-Risk Comment:Reviewed by biothreats/ID Dr. Lebron -See note in EPIC COVID negative x 2 Discontinue CoV Risk. Discontinue enhanced respiratory isolation 07/27/2019 07/27/2019 07/28/2019 3:08 PM E DT documented as of this encounter Care Teams Warehouse Order Puller Relationship Specialty Start Date End Date Steve Funez MD [address] [place] [address] Dr [address] [place] [address] PCP - General Internal Medicine 07/03/15 10/15/21 Steve Funez MD [address] [place] [address] Dr [address] [place] [address] PCP - General Internal Medicine 10/16/21 James Bullard MD [address] [address] Cardiology 05/05/19 Garrison Mustafa MD [address] [address] Vascular Surgery 05/05/19 Tomas De Leon MD [address] [address] [email or web address] Urology 05/05/19 Ria Aggarwal MD [address] [place] [address] [address] [place] [address] Rheumatology 05/05/19 Latonia Tineo MD [address] [place] [address] Hematology and Oncology 03/30/20 Rupert lAicea MD [address] [place] [address] [facility] [place] [address] Orthopedic Surgery 01/01/21 documented as of this encounter Additional Source Comments The information contained in this document represents components of the legal health record. It is not the complete legal health record.[facility]
--- OUTSIDE RECORDS SUMMARY | 2024-08-10 17:30 | XMS_ITS | Encounter Summary ---
Author Organization [facility] Address [address] [employer] [facility] [address] [place] [address] Phone Care Team Providers Care Calculating Machine Operator Name Role Phone James Bullard MD Unavailable Garrison Mustafa MD Unavailable Tomas De Leon MD Unavailable [phone] Ria Aggarwal MD Unavailable Latonia Tineo MD Unavailable Rupert Alicea MD Unavailable [phone] Steve Funez MD Primary Care Provider [phone] Encounter Details Date Type Department Care Team (Late st Contact Info) Description 06/30/2023 Procedure Pass [facility], [address] [address] Social History Tobacco Use Types Packs/Day Years Used Date Smoking Tobacco: Former Cigarettes 0.5 20 0 04/14/1977 - 04/14/1997 Smokeless Tobacco: Never Comments:Quit 20 years ago Alcohol Use Standard Drinks/Week Comments No 0 (1 standard drink = 0.6 oz pur e alcohol) Education Answer Date Recorded Are you interested in more education? Not on addison e 2022 Are you concerned about learning? Not on file 2022 No 2022 No 2022 Digital Access Answer Date Recorded No 09/08/2022 No 09/08/2022 Reliable internet access at home? Not on file 09/08/2022 Device with a working camera? Not on file Sex and Gender Information Value Date Recorded Sex Assigned at Female 07/13/2019 6:15 PM EDT Gender Identity Female 07/13/2019 6:15 PM EDT Sexual Orientation Straight 07/13/2019 6: 15 PM EDT documented as of this encounter Plan of Treatment Upcoming Encounters Date Type Department Care Team (Late st Contact Info) Description 08/20/2023 Procedure Pass [address] [address] 08/20/2024 1:20 PM EDT Appointment [address] [address] Theresa Ovalles, [facility] [address] [address] [email or web address] 09/15/2024 10:00 AM EDT Telemedicine Department of Urology [address] [place] [address] Theresa Ovalles [place], [facility] [address] [address] [email or web address] documented as of this encounter Visit Diagnoses Not on filedocumented in this encounter Care Teams Calculating Machine Operator Relationship Specialty Start Date End Date Steve Funez MD [address] [place] [address] PCP - General Internal Medicine 10/16/21 James Bullard MD [address] [place] [address] Cardiology 05/05/19 Garrison Mustafa MD [address] [address] Vascular Surgery 05/05/19 Tomas De Leon MD [address] [address] [email or web address] Urology 05/05/19 Ria Aggarwal MD 15 [facility] [address] [place] [address] Rheumatology 05/05/19 Latonia Tineo MD [address] [place] [address] Hematology and Oncology 03/30/20 Rupert Alicea MD [address] [place] [address] Orthopedics & Sports Medicine, [facility] [place] [address] Orthopedic Surgery 01/01/21 documented as of this encounter Additional Source Comments The information contained in this document represents components of the legal health record. It is not the complete legal health record.[facility]
--- OUTSIDE RECORDS SUMMARY | 2024-08-10 17:30 | XMS_ITS | Clinical Summary ---
Author Organization [facility] Address [address] [place] [address] Phone Care Team Providers Care County Extension Agent Name Role Phone James Bullard MD Unavailable Garrison Mustafa MD Unavailable [phone] Tomas De Leon MD Unavailable Ria Aggarwal MD Unavailable Latonia Tineo MD Unavailable Rupert Alicea MD Unavailable Steve Funez MD Primary Care Provider [phone] Allergies Active Allergy Reactions Criticality Noted Date Comments Adhesive Tape-Silicones Rash Low 07/04/2015 Aspirin 11/15/2022 Other reaction(s): Unknown Celecoxib 11/15/2022 Cephalexin Rash Low 07/04/2015 Tolerated cefepime Codeine Vomiting Low 10/23/2015 Demerol (Meperidine) Nausea and/or Vomiting Low 10/23/2015 Duloxetine 11/15/2022 Other reaction(s): double vision, gait disturbance Pregabalin Other (See Comments),Unknown 12/13/2018 Other reaction(s): SEVERE DOUBLE VISION Medications Medication Sig Dispensed Refills Start Date End Date Status atorvastatin (LIPITOR) 20 MG tablet Take 20 mg by mouth daily. Active fenofibrate (TRICOR) 145 MG tablet Take 145 mg by mouth daily. Active carisoprodol (SOMA) 350 MG tablet Take 350 mg by mouth 3 (three) times a day as needed. Active esomeprazole (NEXIUM) 20 MG capsule Take 20 mg by mouth 2 (two) times a day. Active multivitamins-minera ls-folic smoe-eizqauk-feuxoi (COMPLETE SENIOR) 0.4-300-250 mg-mcg-mcg Tab Take 1 tablet by mouth daily. Active docusate sodium (COLACE) 100 MG capsule Take 1 capsule (100 mg total) by mouth 2 (two) times a day. 40 capsule 06/03/2018 Active lisinopril-hydroCHLO ROthiazide (PRINZIDE,ZESTORETIC ) 10-12.5 mg per tablet Take 1 tablet by mouth daily. Active nystatin (NYSTOP) powder Apply topically 4 (four) times a day. 15 g 07/17/2019 Active ondansetron (ZOFRAN-ODT) 4 MG disintegrating tablet Take 1 tablet (4 mg total) by mouth every 8 (eight) hours as needed for nausea. 10 tablet 08/12/2019 Active WVVZEIB-U0-M2-CHOLIN E-SILICON ORAL Take by mouth. Active adalimumab (HUMIRA,CF, PEN) 40 mg/0.4 mL pen kit citrate free See Instructions, 40 mg Subcutaneous Injection every 14 days, # 1 kit, 6 Refills, Maintenance, 06/27/22 10:22:00 EDT, [id number], Partial fill upon patient request if the prescription is for a schedule II opioid drug., 153, cm, 05/27/... 06/27/2022 Active leflunomide (ARAVA) 10 MG tablet Take 1 tablet by mouth every morning. 09/16/2022 Active oxyCODONE HCl 10 mg Tab TAKE 1/2 TO 1 TABLET EVERY 6 HOURS ONLY NEEDED FOR INCREASED PAIN 11/05/2022 Active sertraline (ZOLOFT) 100 MG tablet Take 100 mg by mouth. 02/17/2021 Active tiZANidine (ZANAFLEX) 4 MG tablet Take by mouth every 6 (six) hours as needed. 09/24/2023 Active VITAMIN D3 125 mcg (5,000 unit) tablet Take 1 tablet by mouth every morning. 03/15/2024 Active hydroCHLOROthiazide 12.5 MG tablet Take 12.5 mg by mouth every morning. 01/26/2024 Active lisinopril (PRINIVIL,ZESTRIL) 10 MG tablet Take 1 tablet by mouth every morning. 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 Epidermal inclusion cyst 11/14/2023 Osteoporosis 12/16/2019 Gait instability 07/30/2019 Fever in adult 07/27/2019 Pelvic pain 06/14/2019 Vulvar atrophy 06/14/2019 Pain of both shoulder joints 08/11/2018 Bladder perforation, intraoperative 06/03/2018 Assessment & Plan (06/04/2018 6:10 AM EST): - [place] x 10 days, cystogram prior to removal, cipro x1 on day of removal - home today Female bladder prolapse 08/14/2017 Bladder cancer 07/25/2015 Cancer Staging:Clinical stage from 03/17/2019:Stage 0is(cTis, cN0, cM0) - Signed by Latonia Tineo MD on 04/02/2019 Assessment & Plan (04/17/2020 6:02 PM EST): She underwent radical cystectomy for 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 Today, we reviewed her bone scan showing no evidence to suggest recurrent or metastatic disease in the bones to account for her recent pains and MRI findings in the hip. Her MRI showed indeterminate findings in the right hip without aggressive features or clear evidence of relationship to malignancy. CT Chest was reassuring also. Overall, her imaging has not shown any definitive evidence of recurrent or metastatic disease. We therefore discussed that there is no evidence to suggest that recurrent or metastatic bladder cancer is causing her diffuses pains. I recommended that she follow up with her PCP and ceramic designer regarding her pain. I also suggested that she consider a consult with a Pain Clinic, which she will discuss with her PCP. For her history of bladder cancer, she will continue follow up with Dr. Dsouza, who is arranging for a repeat MRI Abdomen/Pelvis and CT Chest around 06/2020 to monitor the hip lesion and lung nodules given her smoking history. I agree with this approach. I will not schedule for follow up at this time, but she understands that I am available if needed in the future. 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 Imaging has not shown any definitive evidence of recurrent or metastatic disease. I discussed with her and her that the likelihood of metastatic bladder cancer causing her diffuses pains is very low. She has diffuse pains from head to shoulders to right hip, and imaging including CT Chest and MRI Abdomen/Pelvis have been relatively reassuring. There are, however, indeterminate lesions in the right pelvis. I reviewed the imaging closely with [facility] Rad[facility], and there does not appear to be any obviously aggressive features. I discussed with Ying that it is possible that these may represent degenerative changes, but given her symptoms, we can obtain a bone scan in an attempt to further characterize the lesions. We did talk about the possibility that the bone scan may yield non-specific/indeterminate findings, in which case we would discuss if there are other ways to work up these lesions and her pain. I also suggested a repeat MRI Pelvis around 06/[address] Chest to monitor the hip lesion and lung nodules given her smoking history. In the meantime, I encouraged her to continue to work with her PCP and ceramic designer as well as re-establish care with her psychiatrist for coping with regards to her cancer diagnosis, surgery, and pain. She stated her understanding and agreement with the plan. SUMMARY OF PLAN/RECOMMENDATIONS: -Bone Scan. -MRI Pelvis and CT Chest in 06/2020. -Update CBC, CMP, CRP, ESR, vitamin B12. -Urology f/u as needed with Dr. Dsouza. -Continue care with PCP, Java User Interface Developer, and Psychiatrist. -Osteopenia management to her PCP. 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 Dr. Dsouza discussed treatment options, including radical cystectomy, re-trial of intravesical BCG, or trial of other intravesical chemotherapy. We also discussed that trimodality bladder-sparing maximal TURBT + chemoradiotherapy may be an option for selected patients with muscle-invasive disease, but data is currently insufficient to recommend it for NMIBC. I discussed that the immune checkpoint inhibitor pembrolizumab is currently under FDA priority review for treatment of BCG-unresponsive, high-risk NMIBC with a PDUFA date of April 2019. We reviewed that the data comes from a small single-arm phase 2 study [id number] involving about 100 patients. Pembrolizumab was administered every 3 weeks for 24 months or until disease recurrence, progression, or unacceptable toxicity. Primary endpoint of complete response with seen in 39% of patients at 3 months. Of these patients, 72% maintain a complete response at the time of last follow-up. However, we discussed that this drug is not yet FDA approved for her disease state, and there are no current clinical trials available at [facility] for high-risk NMIBC. We also reviewed that if/when pembrolizumab is ultimately FDA-approved for this indication, I would be very concerned that pembrolizumab may lead to an exacerbation of her PMR symptoms. I therefore told her that my recommendation would be for cystectomy as it provides the highest chance of cure. She stated that she would want to try anything that could allow her to avoid cystectomy. Given that pembrolizumab is not yet available, another trial of intravesical therapy may be considered with Dr. Dsouza. We clearly discussed that while this may delay/defer cystectomy, it may also allow time for the cancer to progress to a muscle-invasive or metastatic state. If she would like to revisit the question of pembrolizumab if/when it is approved in the upcoming months, I am available to meet. We would arrange for her to see one of my colleagues at [facility] Rheumatology as well. Hyperlipidemia Mitral valve prolapse Post-operative nausea and vomiting Family History Medical History Relation Comments Heart attack Father Heart disease Father Hypertension Father Stroke Mother Pancreatic cancer Sister Relation Status Comments Father Mother Sister Social History Tobacco Use Types Packs/Day Years Used Date Smoking Tobacco: Former Cigarettes 0.5 20 0 04/14/1977 - 04/14/1997 Smokeless Tobacco: Never Tobacco Cessation:Counseling Given: Not Answered Comments:Quit 20 years ago Alcohol Use Standard [...] Orientation Straight 07/13/2019 6: 15 PM EDT Last Filed Vital Signs Vital Sign Reading Time Taken Comments Blood Pressure 166/97 07/30/2019 5:19 PM EDT c/o pain Pulse 99 07/30/2019 5:19 PM EDT Temperature 36.4 ??C (97.5 ??F) 07/30/2019 3:24 PM ED T Respiratory Rate 18 07/30/2019 3:24 PM EDT Oxygen Saturation 96% 07/30/2019 12:48 PM EDT Inhaled Oxygen Concentration - - Weight 61.2 kg (135 lb) 03/23/2024 1:41 PM EST Height 153 cm (5' 0.24 ) 03/23/2024 1:41 PM EST Body Mass Index 26.16 03/23/2024 1:41 PM EST Plan of Treatment Upcoming Encounters Date Type Department Care Team (Late st Contact Info) Description 08/20/2023 Procedure Pass [address] [address] 08/20/2024 1:20 PM EDT Appointment [address] [address] Theresa Ovalles, ASSISTANT WOMEN'S ROWING COACH [address] [address] [email or web address] 09/15/2024 10:00 AM EDT Telemedicine Department of Urology [address] [address] Theresa Ovalles, ASSISTANT WOMEN'S ROWING COACH [address] [address] [email or web address] Health Maintenance Due Date Last Done Comments LIPID PANEL 1948 DEPRESSION SCREENING 1960 HEPATITIS C SCREENING 1966 COLOGUARD 1993 COLONOSCOPY 1993 COLORECTAL CANCER SCREENING 1993 FIT TEST 1993 FOBT 1993 SIGMOIDOSCOPY 1993 VIRTUAL COLONOSCOPY 1993 OSTEOPOROSIS SCREENING INITIAL (ONE-TIME) 2013 Adult Td,Tdap Booster 04/21/2023 04/21/2013 RSV VACCINE (1 - 1-dose 75+ series) 08/10/2023 COVID-19 VACCINE ( season) 2023 03/30/2021, 09/30/2020, 09/01/2020 CREATININE LEVEL 07/22/2024 07/23/2023, 09/2022, 10/16/2021, Additional history exists POTASSIUM LEVEL 07/22/2024 07/23/2023, 03/0 09/2022, 10/16/2021, Additional history exists PNEUMOCOCCAL VACCINES (50+ years) Completed 04/12/2018, 02/12/2017, 04/28/2013 ZOSTER VACCINES Completed 01/04/2019, 04/12/2018 SMOKING STATUS SCREENING (Once After 26 Yrs) Completed 03/23/2024 HEPATITIS A VACCINES Aged Out No long er eligible based on patient's age to complete this topic HIB VACCINES Aged Out No longer eligi ble based on patient's age to complete this topic MENINGOCOCCAL VACCINES (ACWY) Aged Out No longer eligible based on patient's age to complete this topic Medical Devices Not on file Procedures Procedure Name Priority Date/Time Associated Diagnosis Comments BASIC METABOLIC PANEL Routine 07/23/2023 3:59 PM EDT Malignant neoplasm of overlapping sites of bladder from Last 3 Months or Most Recently Relevant to Health Maintenance Results * (ABNORMAL) Basic metabolic panel (07/23/2023 3:59 PM EDT) SODIUM 139 133 - 146 mmol/L [facility] CHLORIDE 104 96 - 108 mmol/L [facility] POTASSIUM 4.0 3.3 - 5.1 mmol/L [facility] CO2 22 21 - 35 mmol/L [facility] BUN 19 6 - 19 mg/dL [facility] CREATININE 0.70 0.5 - 1.5 mg/dL [facility] GLUCOSE 107(H) 70 - 99 mg/dL [facility] CALCIUM 9.7 8.4 - 10.3 mg/dL [facility] EGFR 91 >59 mL/min/1.7 3m2 [facility] Comment:Estimated glomerular filtration rate calculated using the CKD-EPI refit equation. ANION GAP 17 10 - 20 mmol/L [facility] Blood 07/23/2023 3:59 PM EDT 07/23/2023 4:10 PM EDT Haroon Kirk MD LAB BLOOD ORDERABLE S [facility] [address] [place] [address] from Last 3 Months or Most Recently Relevant to Health Maintenance Silvestrangelita, Ying Personal/Family Self 1950 [address] [place], [place] [address] Silvestris, Ying Personal/Family Self 1950 [address] [place], [place] [address] Silvestris, Ying Personal/Family Self 1950 [address] [place], [place] [address] Silvestris, Ying Personal/Family Self 1950 [address] PATI-THONG ARACELI [facility], [place] [address] Silvestris, Ying Personal/Family Self 1950 [address] PATI-THONG ARACELI [facility], [place] [address] Silvestris, Ying Personal/Family Self 1950 [address] PATI-THONG ARACELI [facility], [place] [address] Silvestris, Ying Personal/Family Self 1950 [address] [facility] [facility]ACELI [facility] [place] [address] Silvestris, Ying Personal/Family Self 1950 [address] ANA[address] ARACELI [facility] [place] [address] Advance Directives For more information, please contact: [phone] (9AM - 5PM [facility], Friday-Friday) * Full Code (Presumed) (Latest Code Status on File) Date Activated Date Inactivated Comments 07/27/2019 4:07 AM * Full Code (Presumed) Date Activated Date Inactivated Comments 06/29/2019 8:15 PM 07/05/2019 5:26 PM * Full Code (Presumed) Date Activated Date Inactivated Comments 06/03/2018 4:27 PM 06/04/2018 3:35 PM Care Teams County Extension Agent Relationship Specialty Start Date End Date Steve Funez MD [address] [place] [address] [address] [place] [address] PCP - General Internal Medicine 10/16/21 James Bullard MD [address] [address] Cardiology 05/05/19 Garrison Mustafa MD [address] [place] [address] Vascular Surgery 05/05/19 Tomas De Leon MD [address] [place] [address] [email or web address] Urology 05/05/19 Ria Aggarwal MD [address] [place] [address] Rheumatology 05/05/19 Latonia Tineo MD [address] [place] [address] Hematology and Oncology 03/30/20 Rupert Alicea MD [address] [place] [address] Orthopedics & Sports Medicine, [facility] [place] [address] Orthopedic Surgery 01/01/21 Additional Source Comments The information contained in this document represents components of the legal health record. It is not the complete legal health record.[facility]
--- OUTSIDE RECORDS SUMMARY | 2024-08-10 17:30 | XMS_ITS ---
Author Organization [facility] Address [address] [facility] [address] [place] [address] Phone Care Team Providers Care Field Crop I Farmworker Name Role Phone James Bullard MD Unavailable [phone] Garrison Mustafa MD Unavailable [phone] Tomas De Leon MD Unavailable Ria Aggarwal MD Unavailable Latonia Tineo MD Unavailable Rupert Alicea MD Unavailable Steve Funez MD Primary Care Provider [phone] Active Problems Problem Noted Date Diagnosed Date [...] she follow up with her PCP and lap machine tender regarding her pain. I also suggested that [...] pelvis. I reviewed the imaging closely with [facility] Radiology, and there does not appear to [...] continue to work with her PCP and lap machine tender as well as re-establish care with her psychiatrist for coping with regards to her cancer diagnosis, surgery, and pain. She stated her understanding and agreement with the plan. SUMMARY OF PLAN/RECOMMENDATIONS: -Bone Scan. -MRI Pelvis and CT Chest in 06/2020. -Update CBC, CMP, CRP, ESR, vitamin B12. -Urology f/u as needed with Dr. Dsouza. -Continue care with PCP, Gerontology Aide, and Psychiatrist. -Osteopenia management to her PCP. [...] are no current clinical trials available at [facility] for high-risk NMIBC. We also reviewed that [...] to see one of my colleagues at [facility] Rheumatology as well. Hyperlipidemia Mitral valve prolapse Post-operative nausea and vomiting Current Oncology Plans No current plan information found. Past Plans Radiation Treatments * No radiation treatments are documented for this patient in [facility]. Treatments may have been administered in another system.
--- OUTSIDE RECORDS SUMMARY | 2024-08-10 17:30 | XMS_ITS | Encounter Summary ---
Author Organization [facility] Address [address] [facility] [address] [place] [address] Phone Care Team Providers Care Plant And Instrument Engineer Name Role Phone Steve Funez MD Primary Care Provider [phone] James Bullard MD Unavailable [phone] Garrison Mustafa MD Unavailable Tomas De Leon MD Unavailable Ria Aggarwal MD Unavailable [phone] Latonia Tineo MD Unavailable Rupert Alicea MD Unavailable Steve Funez MD Primary Care Provider Encounter Details Date Type Department Care Team (Late st Contact Info) Description 07/24/2018 Procedure Pass BWF Periop 1st floor [address] [place], [place] [id number] Social History Tobacco Use Types Packs/Day Years [...] st Contact Info) Description 08/20/2023 Procedure Pass [address] [address] 08/20/2024 1:20 PM EDT Appointment [address] [address] Theresa Ovalles, EMPLOYMENT AGENCY MANAGER [address] [address] [email or web address] 09/15/2024 10:00 AM EDT Telemedicine Department of Urology [address] [place] [address] Theresa Ovalles [employer]uit[employer], EMPLOYMENT AGENCY MANAGER [address] [address] [email or web address] documented as of this encounter Visit Diagnoses Not on filedocumented in this encounter Additional Health Concerns Infection Onset Date Last Indicated Resolved Time CoV-Risk Comment:Reviewed by biothreats/ID Dr. Lebron -See note in EPIC COVID negative x 2 Discontinue CoV Risk. Discontinue enhanced respiratory isolation 07/27/2019 07/27/2019 07/28/2019 3:08 PM E DT documented as of this encounter Care Teams Plant And Instrument Engineer Relationship Specialty Start Date End Date Steve Funez MD [address] [place] [address] [address] [place] [address] PCP - General Internal Medicine 07/03/15 10/15/21 Steve Funez MD [address] [place] [address] [address] [place] [address] PCP - General Internal Medicine 10/16/21 James Bullard MD [address] [address] Cardiology 05/05/19 Garrison Mustafa MD [address] [address] Vascular Surgery 05/05/19 Tomas De Leon MD [address] [address] [email or web address] Urology 05/05/19 Ria Aggarwal MD [address] [place] [address] [place] [address] Rheumatology 05/05/19 Latonia Tineo MD [address] [place] [address] Hematology and Oncology 03/30/20 Rupert Alicea MD [address] [place] [address] Orthopedics & Sports Medicine, [facility] [place] [address] Orthopedic Surgery 01/01/21 documented as of this encounter Additional Source Comments The information contained in this document represents components of the legal health record. It is not the complete legal health record.[facility]
--- OUTSIDE RECORDS SUMMARY | 2024-08-10 17:30 | XMS_ITS | Encounter Summary ---
Author Organization [facility] Address [address] [employer] [facility] [address] [place] [address] Phone Care Team Providers Care Black Powder Glazing Operator Name Role Phone Steve Funez MD Primary Care Provider [phone] James Bullard MD Unavailable Garrison Mustafa MD Unavailable [phone] Tomas De Leon MD Unavailable Ria Aggarwal MD Unavailable Latonia Tineo MD Unavailable Rupert Alicea MD Unavailable [phone] Steve Funez MD Primary Care Provider Encounter Details Date Type Department Care Team (Late st Contact Info) Description 02/16/2019 Procedure Pass BWF Periop 1st floor [address] [place] [address] Social History Tobacco Use Types Packs/Day Years [...] st Contact Info) Description 08/20/2023 Procedure Pass [address] [address] 08/20/2024 1:20 PM EDT Appointment [address] [address] Theresa Ovalles, ARCHITECTURAL WOOD MODEL MAKER [address] [address] [email or web address] 09/15/2024 10:00 AM EDT Telemedicine Department of Urology [address] [address] Theresa Ovallesford, ARCHITECTURAL WOOD MODEL MAKER [address] [address] [email or web address] documented as of this encounter Visit Diagnoses Not on filedocumented in this encounter Additional Health Concerns Infection Onset Date Last Indicated Resolved Time CoV-Risk Comment:Reviewed by biothreats/ID Dr. Lebron -See note in EPIC COVID negative x 2 Discontinue CoV Risk. Discontinue enhanced respiratory isolation 07/27/2019 07/27/2019 07/28/2019 3:08 PM E DT documented as of this encounter Care Teams Black Powder Glazing Operator Relationship Specialty Start Date End Date Steve Funez MD [address] [place] [address] [address] [place] [address] PCP - General Internal Medicine 07/03/15 10/15/21 Steve Funez MD [address] [place] [address] Dr [address] [place] [address] PCP - General Internal Medicine 10/16/21 James Bullard MD [address] [address] Cardiology 05/05/19 Garrison Mustafa MD [address] [address] Vascular Surgery 05/05/19 Tomas De Leon MD [address] [address] [email or web address] Urology 05/05/19 Ria Aggarwal MD [address] [place] [address] [address] [place] [address] Rheumatology 05/05/19 Latonia Tineo MD [address] [place] [address] Hematology and Oncology 03/30/20 Rupert Alicea MD [address] [place] [address] [facility] [place] [address] Orthopedic Surgery 01/01/21 documented as of this encounter Additional Source Comments The information contained in this document represents components of the legal health record. It is not the complete legal health record.[facility]
--- OUTSIDE RECORDS SUMMARY | 2024-08-10 17:30 | XMS_ITS | Encounter Summary ---
Author Organization [facility] Address [address] [facility] [address] [place] [address] Phone Care Team Providers Care Software Educator Name Role Phone Steve Funez MD Primary Care Provider [phone] James Bullard MD Unavailable Garrison Mustafa MD Unavailable [phone] Tomas De Leon MD Unavailable Ria Aggarwal MD Unavailable Latonia Tineo MD Unavailable Rupert Alicea MD Unavailable [phone] Steve Funez MD Primary Care Provider Encounter Details Date Type Department Care Team (Late st Contact Info) Description 02/07/2020 Procedure Pass [facility], [address] [id number] Social History Tobacco Use Types Packs/Day Years [...] st Contact Info) Description 08/20/2023 Procedure Pass [address] [address] 08/20/2024 1:20 PM EDT Appointment [address] [address] Theresa Ovalles, ANALYSIS INTERNSHIP [address] [address] [email or web address] 09/15/2024 10:00 AM EDT Telemedicine Department of Urology [address] [place] [address] Theresa Ovalles [place], ANALYSIS INTERNSHIP [address] [address] [email or web address] documented as of this encounter Visit Diagnoses Not on filedocumented in this encounter Care Teams Software Educator Relationship Specialty Start Date End Date Steve Funez MD [address] [place] [address] [address] [place] [address] PCP - General Internal Medicine 07/03/15 10/15/21 Steve Funez MD [address] [place] [address] Dr [address] [place] [address] PCP - General Internal Medicine 10/16/21 James Bullard MD [address] [address] Cardiology 05/05/19 Garrison Mustafa MD [address] [address] Vascular Surgery 05/05/19 Tomas De Leon MD [address] [address] [email or web address] Urology 05/05/19 Ria Aggarwal MD [address] [place] [address] [address] [place] [address] Rheumatology 05/05/19 Latonia Tineo MD [address] [place] [address] Hematology and Oncology 03/30/20 Rupert Alicea MD [address] [place] [address] Orthopedics & Sports Medicine, [facility] [place] [address] [email or web address] Orthopedic Surgery 01/01/21 documented as of this encounter Additional Source Comments The information contained in this document represents components of the legal health record. It is not the complete legal health record.[facility]
--- OUTSIDE RECORDS SUMMARY | 2024-08-10 17:30 | XMS_ITS | Encounter Summary ---
Author Organization [facility] Address [address] [employer] [facility] [address] [place] [address] Phone Care Team Providers Care Care Services Manager Name Role Phone Steve Funez MD Primary Care Provider [phone] James Bullard MD Unavailable Garrison Mustafa MD Unavailable Tomas De Leon MD Unavailable Ria Aggarwal MD Unavailable Latonia Tineo MD Unavailable Rupert Alicea MD Unavailable [phone] Steve Funez MD Primary Care Provider Encounter Details Date Type Department Care Team (Late st Contact Info) Description 02/07/2020 Procedure Pass [facility], Ct Scan - [address] [phone] Social History Tobacco Use Types Packs/Day Years [...] st Contact Info) Description 08/20/2023 Procedure Pass [address] [address] 08/20/2024 1:20 PM EDT Appointment [address] [address] Theresa Ovalles, PHARMACEUTICAL BOTANIST [address] [address] [email or web address] 09/15/2024 10:00 AM EDT Telemedicine Department of Urology [address] [place] [address] Theresa Ovalles [place], PHARMACEUTICAL BOTANIST [address] [address] [email or web address] documented as of this encounter Visit Diagnoses Not on filedocumented in this encounter Care Teams Care Services Manager Relationship Specialty Start Date End Date Steve Funez MD [address] [place] [address] Dr [address] [place] [address] PCP - General Internal Medicine 07/03/15 10/15/21 Steve Funez MD [address] [place] [address] Dr [address] [place] [address] PCP - General Internal Medicine 10/16/21 James Bullard MD [address] [address] Cardiology 05/05/19 Garrison Mustafa MD [address] [address] Vascular Surgery 05/05/19 Tomas De Leon MD [address] [address] [email or web address] Urology 05/05/19 Ria Aggarwal MD [address] [place] [address] [address] [place] [address] Rheumatology 05/05/19 Latonia Tineo MD [address] [place] [address] Hematology and Oncology 03/30/20 Rupert Alicea MD [address] [place] [address] Orthopedics & Sports Medicine, [facility] [place] [address] [email or web address] Orthopedic Surgery 01/01/21 documented as of this encounter Additional Source Comments The information contained in this document represents components of the legal health record. It is not the complete legal health record.[facility]
--- OUTSIDE RECORDS SUMMARY | 2024-08-10 17:31 | XMS_ITS | Encounter Summary ---
Author Organization [facility] Address [address] [facility] [address] [place] [address] Phone Care Team Providers Care Zinc Furnace Charger Name Role Phone Steve Funez MD Primary Care Provider [phone] James Bullard MD Unavailable Garrison Mustafa MD Unavailable Tomas De Leon MD Unavailable [phone] Ria Aggarwal MD Unavailable [phone] Latonia Tineo MD Unavailable Rupert Alicea MD Unavailable [phone] Steve Funez MD Primary Care Provider [phone] Reason for Referral * MRI/CAT Scan - Closed Specialty Diagnoses / Procedures Referred By Contac t Referred To Contact Radiology Diagnoses Malignant neoplasm of urinary bladder, unspecified site Procedures CT 3D Reconstruction Abdomen and Pelvis Mary Kwong MD [address] [place] [address] Referral ID Status Reason Start Date Expiration Date Visits Re quested Visits Authorized [id number] Closed 06/02/2018 06/02/2019 1 1 Encounter Details Date Type Department Care Team (Late st Contact Info) Description 06/02/2018 Ancillary Orders [facility] Urology [address] [place] [address] Mary Kwong MD [address] [place] [address] [email or web address] Malignant neoplasm of urinary bladder, unspecified site Social History Tobacco Use Types Packs/Day Years [...] Contact Info) Description 08/20/2023 Procedure Pass [address] [address] 08/20/2024 1:20 PM EDT Appointment [address] [address] Theresa Ovalles, CISCO [address] [address] [email or web address] 09/15/2024 10:00 AM EDT Telemedicine Department of Urology [address] [address] Theresa Ovalles, CISCO [address] [address] [email or web address] documented as of this encounter Results * CT 3D Reconstruction Abdomen and Pelvis (06/02/2018 12:48 PM EST) Anatomical Region Laterality Modality Abdomen, Pelvis Computed Tomogra phy 06/02/2018 12:4 8 PM EST Impressions 06/02/2018 1:47 PM EST 1. ?No renal stones, masses or hydronephrosis. 2. ?No hydroureter. 3. ?Normal urinary bladder. ?? Narrative 06/02/2018 1:47 PM EST Reason for exam (per EHR order): [MALIGNANCY] BLADDER (KNOWN ACT MALIG UNDER [place]; BLADDER CANCER) ?? TECHNIQUE: CT scan of abdomen and pelvis was obtained before and after the administration of intravenous contrast using the CT urography protocol. Oral contrast: Water. Intravenous contrast: 100 cc of Omnipaque 350 Other medications: 200 mL of intravenous saline. 3D IMAGES: Maximum-intensity projection images (MIP) were performed to evaluate the collecting system, ureters, and bladder. COMPARISON: August 27, 2017. FINDINGS: Lower Chest: Incidental finding of a 2 mm peripheral nodule in the right lower lobe, 2:11. Liver: Normal. Biliary System: Normal. Pancreas: Normal. Spleen: Normal. Adrenal Glands: Normal. Kidneys: Normal. Renal Collecting Systems, Ureters, and Bladder: The collecting systems and ureters are well-opacified and appear normal. No urothelial abnormality, wall thickening, dilatation, or stricture. The urinary bladder is distended and shows no thickening or masses. Tiny amount of air within the urinary bladder, 12:132, similar to prior exam. Bowel: Colonic diverticulosis. Mesentery, Omentum, and Peritoneum: Normal. Pelvic Organs Other Than Bladder: Status post hysterectomy. Incidental note is made of a pessary. Lymph Nodes: Normal. Vasculature: Atheromatous change involving the abdominal aorta and iliac vessels, without evidence of aneurysmal dilation. Bones and Soft Tissues: Degenerative disease at L4-L5 and L5-S1. A bone donor site from the right iliac crest is noted. Procedure Note Eladio Akers MD - 06/08/2018 Reason for exam (per EHR order): [MALIGNANCY] BLADDER (KNOWN ACT MALIG UNDER [place]; BLADDER CANCER) TECHNIQUE: CT scan of abdomen and pelvis was obtained before and after the administration of intravenous contrast using the CT urography protocol. Oral contrast: Water. Intravenous contrast: 100 cc of Omnipaque 350 Other medications: 200 mL of intravenous saline. 3D IMAGES: Maximum-intensity projection images (MIP) were performed to evaluate the collecting system, ureters, and bladder. COMPARISON: August 27, 2017. FINDINGS: Lower Chest: Incidental finding of a 2 mm peripheral nodule in the right lower lobe, 2:11. Liver: Normal. Biliary System: Normal. Pancreas: Normal. Spleen: Normal. Adrenal Glands: Normal. Kidneys: Normal. Renal Collecting Systems, Ureters, and Bladder: The collecting systems and ureters are well-opacified and appear normal. No urothelial abnormality, wall thickening, dilatation, or stricture. The urinary bladder is distended and shows no thickening or masses. Tiny amount of air within the urinary bladder, 12:132, similar to prior exam. Bowel: Colonic diverticulosis. Mesentery, Omentum, and Peritoneum: Normal. Pelvic Organs Other Than Bladder: Status post hysterectomy. Incidental note is made of a pessary. Lymph Nodes: Normal. Vasculature: Atheromatous change involving the abdominal aorta and iliac vessels, without evidence of aneurysmal dilation. Bones and Soft Tissues: Degenerative disease at L4-L5 and L5-S1. A bone donor site from the right iliac crest is noted. IMPRESSION: 1. No renal stones, masses or hydronephrosis. 2. No hydroureter. 3. Normal urinary bladder. 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 Lebron -See note in EPIC COVID negative x 2 Discontinue CoV Risk. Discontinue enhanced respiratory isolation 07/27/2019 07/27/2019 07/28/2019 3:08 PM E DT documented as of this encounter Care Teams Zinc Furnace Charger Relationship Specialty Start Date End Date Steve Funez MD [address] [place] [address] Dr [address] [place] [address] PCP - General Internal Medicine 07/03/15 10/15/21 Steve Funez MD [address] [place] [address] [address] [place] [address] PCP - General Internal Medicine 10/16/21 James Bullard MD [address] [address] Cardiology 05/05/19 Garrison Mustafa MD [address] [address] Vascular Surgery 05/05/19 Tomas De Leon MD [address] [address] [email or web address] Urology 05/05/19 Ria Aggarwal MD [address] [place] [address] Rheumatology 05/05/19 Latonia Tineo MD [address] [place] [address] Hematology and Oncology 03/30/20 Rupert Alicea MD [address] [place] [address] [facility] [place] [address] Orthopedic Surgery 01/01/21 documented as of this encounter Additional Source Comments The information contained in this document represents components of the legal health record. It is not the complete legal health record.[facility]
--- OUTSIDE RECORDS SUMMARY | 2024-08-10 17:31 | XMS_ITS | Encounter Summary ---
Author Organization [facility] Address [address] [facility] [address] [place] [address] Phone Care Team Providers Care Court Collections Officer Name Role Phone Steve Funez MD Primary Care Provider [phone] James Bullard MD Unavailable Garrison Mustafa MD Unavailable Tomas De Leon MD Unavailable [phone] Ria Aggarwal MD Unavailable [phone] Latonia Tineo MD Unavailable Rupert Alicea MD Unavailable Steve Funez MD Primary Care Provider Encounter Details Date Type Department Care Team (Late st Contact Info) Description 01/20/2021 Procedure Pass [facility], [address] [id number] Social History Tobacco Use Types Packs/Day Years [...] st Contact Info) Description 08/20/2023 Procedure Pass [address] [address] 08/20/2024 1:20 PM EDT Appointment [address] [address] Theresa Ovalles, BAND CUTTING MACHINE OPERATOR [address] [address] [email or web address] 09/15/2024 10:00 AM EDT Telemedicine Department of Urology [address] [place] [address] Theresa Ovalles [place], BAND CUTTING MACHINE OPERATOR [address] [address] [email or web address] documented as of this encounter Visit Diagnoses Not on filedocumented in this encounter Care Teams Court Collections Officer Relationship Specialty Start Date End Date Steve Funez MD [address] [place] [address] Dr [address] [place] [address] PCP - General Internal Medicine 07/03/15 10/15/21 Steve Funez MD [address] [place] [address] [address] [place] [address] PCP - General Internal Medicine 10/16/21 James Bullard MD [address] [address] Cardiology 05/05/19 Garrison Mustafa MD [address] [address] Vascular Surgery 05/05/19 Tomas De Leon MD [address] [address] [email or web address] Urology 05/05/19 Ria Aggarwal MD [address] [place] [address] [address] [place] [address] Rheumatology 05/05/19 Latonia Tineo MD [address] [place] [address] Hematology and Oncology 03/30/20 Rupert Alicea MD [address] [place] [address] Orthopedics & Sports Medicine, [facility] [place] [address] [email or web address] Orthopedic Surgery 01/01/21 documented as of this encounter Additional Source Comments The information contained in this document represents components of the legal health record. It is not the complete legal health record.[facility]
--- OUTSIDE RECORDS SUMMARY | 2024-08-10 17:31 | XMS_ITS | Encounter Summary ---
Author Organization [facility] Address [address] [facility] [address] [place] [address] Phone Care Team Providers Care Building Code Administrator Name Role Phone Steve Funez MD Primary Care Provider [phone] James Bullard MD Unavailable [phone] Garrison Mustafa MD Unavailable Tomas De Leon MD Unavailable Ria Aggarwal MD Unavailable Latonia Tineo MD Unavailable Rupert Alicea MD Unavailable Steve Funez MD Primary Care Provider Encounter Details Date Type Department Care Team (Late st Contact Info) Description 06/03/2018 Procedure Pass [facility] [address] [place] [address] Social History Tobacco Use Types Packs/Day Years [...] st Contact Info) Description 08/20/2023 Procedure Pass [address] [address] 08/20/2024 1:20 PM EDT Appointment [address] [address] Theresa Ovalles, WEB SOFTWARE ENGINEER [address] [address] [email or web address] 09/15/2024 10:00 AM EDT Telemedicine Department of Urology [address] [place] [address] Theresa Ovalles [place], WEB SOFTWARE ENGINEER [address] [address] [email or web address] documented as of this encounter Visit Diagnoses Not on filedocumented in this encounter Additional Health Concerns Infection Onset Date Last Indicated Resolved Time CoV-Risk Comment:Reviewed by biothreats/ID Dr. Lebron -See note in EPIC COVID negative x 2 Discontinue CoV Risk. Discontinue enhanced respiratory isolation 07/27/2019 07/27/2019 07/28/2019 3:08 PM E DT documented as of this encounter Care Teams Building Code Administrator Relationship Specialty Start Date End Date Steve Funez MD [address] [place] [address] Dr [address] [place] [address] PCP - General Internal Medicine 07/03/15 10/15/21 Steve Funez MD [address] [place] [address] Dr [address] [place] [address] PCP - General Internal Medicine 10/16/21 James Bullard MD [address] [address] Cardiology 05/05/19 Garrison Mustafa MD [address] [address] Vascular Surgery 05/05/19 Tomas De Leon MD [address] [address] [email or web address] Urology 05/05/19 Ria Aggarwal MD [address] [place] [address] [place] [address] Rheumatology 05/05/19 Latonia Tineo MD [address] [place] [address] Hematology and Oncology 03/30/20 Rupert Alicea MD [address] [place] [address] Orthopedics & Sports Medicine, [place] [address] Orthopedic Surgery 01/01/21 documented as of this encounter Additional Source Comments The information contained in this document represents components of the legal health record. It is not the complete legal health record.[facility]
--- OUTSIDE RECORDS SUMMARY | 2024-08-10 17:31 | XMS_ITS | Encounter Summary ---
Author Organization [facility] Address [address] [employer] [facility] [address] [place] [address] Phone Care Team Providers Care Business Office Technician Name Role Phone Steve Funez MD Primary Care Provider [phone] James Bullard MD Unavailable Garrison Mustafa MD Unavailable [phone] Tomas De Leon MD Unavailable [phone] Ria Aggarwal MD Unavailable Latonia Tineo MD Unavailable Rupert Alicea MD Unavailable [phone] Steve Funez MD Primary Care Provider Encounter Details Date Type Department Care Team (Late st Contact Info) Description 06/03/2018 Procedure Pass [facility] Periop [address] [place] [address] Social History Tobacco Use Types Packs/Day Years [...] Contact Info) Description 08/20/2023 Procedure Pass [address] [address] 08/20/2024 1:20 PM EDT Appointment [address] [address] Theresa Ovalles, ELECTRON BEAM MACHINE WELDER SETTER [address] [place] [address] [address] [email or web address] 09/15/2024 10:00 AM EDT Telemedicine Department of Urology [address] [place] [address] Theresa O[place], ELECTRON BEAM MACHINE WELDER SETTER [address] [place] [address] [address] [email or web address] documented as of this encounter Visit Diagnoses Not on filedocumented in this encounter Additional Health Concerns Infection Onset Date Last Indicated Resolved Time CoV-Risk Comment:Reviewed by biothreats/ID Dr. Lebron -See note in EPIC COVID negative x 2 Discontinue CoV Risk. Discontinue enhanced respiratory isolation 07/27/2019 07/27/2019 07/28/2019 3:08 PM E DT documented as of this encounter Care Teams Business Office Technician Relationship Specialty Start Date End Date Steve Funez MD [address] [place] [address] Dr [address] [place] [address] PCP - General Internal Medicine 07/03/15 10/15/21 Steve Funez MD [address] [place] [address] Dr [address] [place] [address] PCP - General Internal Medicine 10/16/21 James Bullard MD [address] [address] Cardiology 05/05/19 Garrison Mustafa MD [address] [address] Vascular Surgery 05/05/19 Tomas De Leon MD [address] [address] [email or web address] Urology 05/05/19 Ria Aggarwal MD [address] [place] [address] [address] [place] [address] Rheumatology 05/05/19 Latonia Tineo MD [address] [place] [address] Hematology and Oncology 03/30/20 Rupert Alicea MD [address] [place] [address] [facility] [place] [address] Orthopedic Surgery 01/01/21 documented as of this encounter Additional Source Comments The information contained in this document represents components of the legal health record. It is not the complete legal health record.[facility]
--- OUTSIDE RECORDS SUMMARY | 2024-08-10 17:32 | XMS_ITS | Encounter Summary ---
Author Organization [facility] Address [address] [employer] [facility] [address] [place] [address] Phone Care Team Providers Care Industrial Roofer Helper Name Role Phone Steve Funez MD Primary Care Provider [phone] James Bullard MD Unavailable [phone] Garrison Mustafa MD Unavailable [phone] Tomas De Leon MD Unavailable Ria Aggarwal MD Unavailable Latonia Tineo MD Unavailable Rupert Alicea MD Unavailable Steve Funez MD Primary Care Provider Encounter Details Date Type Department Care Team (Late st Contact Info) Description 02/07/2020 Procedure Pass [facility], [address] [id number] Social History Tobacco Use Types Packs/Day Years [...] st Contact Info) Description 08/20/2023 Procedure [address] [address] 08/20/2024 1:20 PM EDT Appointment [address] [address] Theresa Ovalles, PROGRAM THERAPIST [address] [address] [email or web address] 09/15/2024 10:00 AM EDT Telemedicine Department of Urology [address] [place] [address] Theresa Ovalles [place], PROGRAM THERAPIST [address] [address] [email or web address] documented as of this encounter Visit Diagnoses Not on filedocumented in this encounter Care Teams Industrial Roofer Helper Relationship Specialty Start Date End Date Steve Funez MD [address] [place] [address] Dr [address] [place] [address] PCP - General Internal Medicine 07/03/15 10/15/21 Steve Funez MD [address] [place] [address] Dr [address] [place] [address] PCP - General Internal Medicine 10/16/21 James Bullard MD [address] [address] Cardiology 05/05/19 Garrison Mustafa MD [address] [address] Vascular Surgery 05/05/19 Tomas De Leon MD [address] [address] [email or web address] Urology 05/05/19 Ria Aggarwal MD [address] [place] [address] [address] [place] [address] Rheumatology 05/05/19 Latonia Tineo MD [address] [place] [address] Hematology and Oncology 03/30/20 Rupert Alicea MD [address] [place] [address] Orthopedics & Sports Medicine, [facility] [place] [address] [email or web address] Orthopedic Surgery 01/01/21 documented as of this encounter Additional Source Comments The information contained in this document represents components of the legal health record. It is not the complete legal health record.[facility]
--- OUTSIDE RECORDS SUMMARY | 2024-08-10 17:32 | XMS_ITS | Encounter Summary ---
Author Organization [facility] Address [address] [place] [address] [place] [address] Phone Care Team Providers Care Medical Dosimetrist Name Role Phone Steve Funez MD Primary Care Provider [phone] James Bullard MD Unavailable Garrison Mustafa MD Unavailable Tomas De Leon MD Unavailable [phone] Ria Aggarwal MD Unavailable Latonia Tineo MD Unavailable Rupert Alicea MD Unavailable Steve Funez MD Primary Care Provider Encounter Details Date Type Department Care Team (Late st Contact Info) Description 01/20/2021 Procedure Pass [facility], Ct Scan - [address] [id number] Social History Tobacco Use Types Packs/Day Years [...] Contact Info) Description 08/20/2023 Procedure Pass [address] [address] 08/20/2024 1:20 PM EDT Appointment [address] [address] Theresa Ovalles, HAY STACKER [address] [address] [email or web address] 09/15/2024 10:00 AM EDT Telemedicine Department of Urology [address] [address] Theresa Ovalles [place], HAY STACKER [address] [address] [email or web address] documented as of this encounter Visit Diagnoses Not on filedocumented in this encounter Care Teams Medical Dosimetrist Relationship Specialty Start Date End Date Steve Funez MD [address] [place] [address] [address] [place] [address] PCP - General Internal Medicine 07/03/15 10/15/21 Steve Funez MD [address] [place] [address] Dr [address] [place] [address] PCP - General Internal Medicine 10/16/21 James Bullard MD [address] [address] Cardiology 05/05/19 Garrison Mustafa MD [address] [address] Vascular Surgery 05/05/19 Tomas De Leon MD [address] [address] [email or web address] Urology 05/05/19 Ria Aggarwal MD [address] [place] [address] [place] [address] Rheumatology 05/05/19 Latonia Tineo MD [address] [place] [address] Hematology and Oncology 03/30/20 Rupert Alicea MD [address] [place] [address] Orthopedics & Sports Medicine, [place] [address] Orthopedic Surgery 01/01/21 documented as of this encounter Additional Source Comments The information contained in this document represents components of the legal health record. It is not the complete legal health record.[facility]
--- OUTSIDE RECORDS SUMMARY | 2024-08-10 17:32 | XMS_ITS | Encounter Summary ---
Author Organization [facility] Address [address] [facility] [address] [place] [address] Phone Care Team Providers Care News Cameraman Name Role Phone James Bullard MD Unavailable Garrison Mustafa MD Unavailable Tomas De Leon MD Unavailable Ria Aggarwal MD Unavailable Latonia Tineo MD Unavailable Rupert Alicea MD Unavailable Steve Funez MD Primary Care Provider [phone] Encounter Details Date Type Department Care Team (Late st Contact Info) Description 11/19/2021 Procedure Pass [facility], [address] [address] Social History Tobacco Use Types Packs/Day Years [...] st Contact Info) Description 08/20/2023 Procedure Pass [address] [address] 08/20/2024 1:20 PM EDT Appointment [address] [address] Theresa Ovalles, GOLF SALES ASSOCIATE [address] [address] [email or web address] 09/15/2024 10:00 AM EDT Telemedicine Department of Urology [address] [place] [address] Theresa Ovalles [place], GOLF SALES ASSOCIATE [address] [address] [email or web address] documented as of this encounter Visit Diagnoses Not on filedocumented in this encounter Care Teams News Cameraman Relationship Specialty Start Date End Date Steve Funez MD [address] [place] [address] PCP - General Internal Medicine 10/16/21 James Bullard MD [address] [place] [address] Cardiology 05/05/19 Garrison Mustafa MD [address] [place] [address] Vascular Surgery 05/05/19 Tomas De Leon MD [address] [place] [address] [email or web address] Urology 05/05/19 Ria Aggarwal MD [address] [place] [address] [address] [place] [address] Rheumatology 05/05/19 Latonia Tineo MD [address] [place] [address] Hematology and Oncology 03/30/20 Rupert Alicea MD [address] [place] [address] Orthopedics & Sports Medicine, [facility] [place] [address] Orthopedic Surgery 01/01/21 documented as of this encounter Additional Source Comments The information contained in this document represents components of the legal health record. It is not the complete legal health record.[facility]
--- OUTSIDE RECORDS SUMMARY | 2024-08-10 17:32 | XMS_ITS | Clinical Summary ---
Author Organization [address] [place] [address] [place] [address] Phone Care Team Providers Care Hogshead Mat Assembler Name Role Phone Steve Hale MD Primary Care Provider Allergies Active Allergy Reactions Criticality Noted Date Comments Adhesive Tape-Silicones 08/05/2023 Cephalexin 02/11/2024 Codeine 02/11/2024 Duloxetine 08/05/2023 Meperidine Hcl 02/11/2024 Pregabalin 08/05/2023 Medications atorvastatin (LIPITOR) 40 mg tablet Take 1 Tablet by mouth daily for 360 days. 4 09/28/19 25 Active nitroglycerin (NITROSTAT) 0.[address] 1 Tablet under the tongue every 5 minutes as needed for Chest pain. 4 08/30/19 25 Active amoxicillin (AMOXIL) 500 mg capsule Active carisoprodoL (SOMA) 350 mg tablet Active gabapentin (NEURONTIN) 300 mg capsule Active LORazepam (ATIVAN) 2 mg tablet Active MULTIVITAMIN ORAL Active esomeprazole magnesium (NexIUM 24HR) 20 mg tablet,delayed release (DR/EC) Acti ve oxyCODONE (ROXICODONE) 10 mg immediate release tablet TAKE A HALF TO ONE TABLET BY MOUTH EVERY 6 HOURS NEEDED FOR INCREASED PAIN 2 Active oxyCODONE (ROXICODONE) 5 mg immediate release tablet Activ e predniSONE (DELTASONE) 1 mg tablet Active predniSONE (DELTASONE) 10 mg tablet Active fenofibrate (TRICOR) 145 mg tablet Active metoprolol succinate (TOPROL-XL) 50 mg 24 hr tablet Take 1 tablet (50 mg total) by mouth 1 (one) time each day. 90 tablet 1 Active Active Problems Problem Noted Date Diagnosed Date Mixed hyperlipidemia 10/03/2023 TAYLOR (dyspnea on exertion) 08/05/2023 Other chest pain 08/05/2023 HTN (hypertension) 06/04/2023 Knee pain 06/04/2023 Nonrheumatic mitral (valve) prolapse 06/04/2023 Encounters Date Type Department Care Team Description 06/28/2024 Telephone [facility] - [facility] [address] [facility] [address] [place] [address] Theresa Dawn NP Med Refill from Last 3 Months Medical History Medical History Date Comments Bladder cancer (CMS/HCC V24, CMS/HCC V28) DX:Bladder cancer (HCC) Family History Medical History Relation Name Comments Hypertension Father Other: cardiovascular disease Father Stroke Mother Relation Name Status Comments Father Mother Social History Tobacco Use Types Packs/Day Years Used Date Smoking Tobacco: Never Smokeless Tobacco: Never Alcohol Use Standard Drinks/Week Comments Never 0 (1 standard drink = 0.6 oz pur e alcohol) Comments Unknown Sex and Gender Information Value Date Recorded Sex Assigned at Not on file Legal Sex Female 6:36 AM EST Gender Identity Not on file Sexual Orientation Not on file Obstetrics History Last Filed Vital Signs Vital Sign Reading Time Taken Comments Blood Pressure 140/82 10/24/2023 9:37 AM EDT Sit ting L Arm Pulse 87 08/05/2023 3:18 PM EDT Temperature - - Respiratory Rate - - Oxygen Saturation - - Inhaled Oxygen Concentration - - Weight 59.4 kg (131 lb) 10/24/2023 9:37 AM EDT Height 154.9 cm (5' 1 ) 10/24/2023 9:37 AM EDT Body Mass Index 24.75 10/24/2023 9:37 AM EDT Plan of Treatment Upcoming Encounters Date Type Department Care Team (Late st Contact Info) Description 03/09/2025 2:00 PM EST Office Visit [facility] [address] [phone] James Bullard MD 300 [facility] [address] [place] [address] Health Maintenance Due Date Last Done Comments COVID-19 Vaccine (#1) 1955 DTaP,Tdap,and Td Vaccines (1 - Tdap) 08/10/1967 Pneumococcal Vaccine: 50+ Years (1 of 1 - PCV) 1998 Zoster Vaccines (1 of 2) 1998 Cholesterol Screening (Lipid Panel) 03/17/2022 Depression Screening 03/17/2022 Falls Risk Assessment 03/17/2022 Hepatitis C Screening 03/17/2022 Medicare Annual Wellness Visit 03/17/2022 Osteoporosis Screening (Bone Density Screening) 03/17/2022 Social Influencers of Health Screening 03/17/2022 RSV Immunization Adult Patients (1 - 1-dose 75+ series) 08/10/2023 Hypertension/CHF/CAD Annual BMP Blood Test 07/22/2024 07/23/2023 Influenza Vaccine (Season Ended) 2024 Breast Cancer Screening Discontinued 07/13/19, 06/25/2020, 12/04/2018 HIB Vaccines Aged Out No longer eligi ble based on patient's age to complete this topic HPV Vaccines Aged Out No longer eligi ble based on patient's age to complete this topic Hepatitis A Vaccines Aged Out No long er eligible based on patient's age to complete this topic Hepatitis B Vaccines Aged Out No long er eligible based on patient's age to complete this topic IPV Vaccines Aged Out No longer eligi ble based on patient's age to complete this topic MMR Vaccines Aged Out No longer eligi ble based on patient's age to complete this topic Meningococcal ACWY Vaccine Aged Out N o longer eligible based on patient's age to complete this topic Meningococcal B Vaccine Aged Out No l onger eligible based on patient's age to complete this topic RSV Immunization Patients Under 20 months Aged Out No longer eligible based on patient's age to complete this topic Varicella Vaccines Aged Out No longer eligible based on patient's age to complete this topic Procedures Procedure Name Priority Date/Time Associated Diagnosis Comments ANNUAL BMP BLOOD TEST Routine 07/23/2023 [facility] SCREENING DIGITAL Routine 07/12/2022 4:32 PM EDT Encounter for screening mammogram for malignant neoplasm of breast from Last 3 Months or Most Recently Relevant to Health Maintenance Results * Annual BMP Blood Test (07/23/2023) Annual BMP Blood Test abstracted us Historical Provider HEALTH MAINTENANCE Final Result * [facility] SCREENING DIGITAL (07/12/2022 4:32 PM EDT) Anatomical Region Laterality Modality Mammography 07/12/2022 2:07 PM EDT Narrative 07/12/2022 4:32 PM EDT [facility] Diagnostic Imaging Department [address] [place] [id number] Patient: ??RENETTA LOPEZ ?/Age/Sex: 1950 - 71 - F Unit#: ??[id number] ? Location/Status: ??SPDIMAM/REG CLI ? Mnemonic/Ordering Site: ??DIGSC/SPMAM Ordering Physician: ??STEVE HALE MD [facility]la Screening Digital - [birth year]/31/56 - 5529 EXAM: [facility] Screening Digital EXAM DATE AND TIME: 07/12/2022 2:38 PM HISTORY: ??Screening. Right breast biopsy in 1991, pathology benign. COMPARISON: ??06/24/20, 12/04/18, 11/01/16 TECHNIQUE: CC and MLO views of both breasts were obtained using full field digital mammography. Bilateral digital breast tomosynthesis was performed in the MLO projection. Computer aided detection with [employer] 7.2-H and [employer] 3D 3.1 was employed. TISSUE DENSITY: b. There are scattered areas of fibroglandular density. FINDINGS: A small group of microcalcifications is seen in the middle 3:00 position of the left breast. Spot compression magnification views are recommended for further assessment. Numerous benign-appearing calcifications are present elsewhere bilaterally. These calcifications have gradually progressed since the earlier studies. Some are associated with circumscribed nodules, suggesting fibroadenomas. No suspicious masses are seen. There is no architectural distortion. Vascular calcification is present. The skin is unremarkable. IMPRESSION: 1. Grouped microcalcifications in the left breast, for which additional views are recommended. The patient will be called back. 2. Stable mammographic appearance of the right breast. No evidence of malignancy is seen. BI-RADS: ??Category 0: Incomplete - Need Additional Imaging Evaluation RECOMMENDATION(S): 1: Special mammographic view(s) needed LEFT 79[address], [address] 3340F, 7025F Dictating Physician: ??CAROLYN FITZGERALD MD Electronically Signed by: ??CAROLYN FITZGERALD MD Dic Date/Time: ??07/12/22 1630 Sign date/Time: ??07/12/22 1632 Procedure Note Carolyn Fitzgerald MD - 05/16/2023 [facility] Diagnostic Imaging Department [address] [place], [place] [id number] Patient: RENETTA LOPEZ /Age/Sex: 1950 - 71 - F Unit#: [id number] Location/Status: [facility]/REG I Mnemonic/Ordering Site: [facility] Ordering Physician: STEVE HALE MD [facility] Screening Digital - 07/12/22 - 1438 EXAM: [facility] Screening Digital EXAM DATE AND TIME: 07/12/2022 2:38 PM HISTORY: Screening. Right breast biopsy in 1991, pathology benign. COMPARISON: 06/24/20, 12/04/18, 11/01/16 TECHNIQUE: CC and MLO views of both breasts were obtained using fullfield digital mammography. Bilateral digital breast tomosynthesis was performedin the MLO projection. Computer aided detection with [employer] 7.2-H and[employer] 3D 3.1 was employed. TISSUE DENSITY: b. There are scattered areas of fibroglandular density. FINDINGS: A small group of microcalcifications is seen in the middle 3:00 positionof the left breast. Spot compression magnification views are recommended forfurther assessment. Numerous benign-appearing calcifications are present elsewherebilaterally. These calcifications have gradually progressed since the earlier studies.Some are associated with circumscribed nodules, suggesting fibroadenomas. No suspicious masses are seen. There is no architectural distortion. Vascular calcification is present. The skin is unremarkable. IMPRESSION: 1. Grouped microcalcifications in the left breast, for which additionalviews are recommended. The patient will be called back. 2. Stable mammographic appearance of the right breast. No evidence of malignancy is seen. BI-RADS: Category 0: Incomplete - Need Additional Imaging Evaluation RECOMMENDATION(S): 1: Special mammographic view(s) needed LEFT 98118, 58070 3340F, 7025F Dictating Physician: CAROLYN FITZGERALD MD Electronically Signed by: CAROLYN FITZGERALD MD Dic Date/Time: 07/12/22 1630 Sign date/Time: 07/12/22 1632 Steve Hale MD IMG BI PROCEDURES Final Resu lt from Last 3 Months or Most Recently Relevant to Health Maintenance Insurance MEDICARE [facility] Care Teams Hogshead Mat Assembler Relationship Specialty Start Date End Date Steve Hale MD [address] [place] [address] [address] [place] PCP - General 05/19/15
--- OUTSIDE RECORDS SUMMARY | 2024-08-10 17:32 | XMS_ITS | Encounter Summary ---
Author Organization [facility] Address [address] [facility] [address] [place] [address] Phone Care Team Providers Care Director Talent Acquisition Name Role Phone Steve Funez MD Primary Care Provider [phone] James Bullard MD Unavailable Garrison Mustafa MD Unavailable Tomas De Leon MD Unavailable Ria Aggarwal MD Unavailable [phone] Latonia Tineo MD Unavailable Rupert Alicea MD Unavailable [phone] Steve Funez MD Primary Care Provider Encounter Details Date Type Department Care Team (Late st Contact Info) Description 01/05/2020 Procedure Pass [facility], [address] [phone] Social History Tobacco Use Types Packs/Day Years [...] st Contact Info) Description 08/20/2023 Procedure Pass [address] [address] 08/20/2024 1:20 PM EDT Appointment [address] [address] Theresa Ovalles, BRIQUETTE OPERATOR [address] [address] [email or web address] 09/15/2024 10:00 AM EDT Telemedicine Department of Urology [address] [place] [address] Theresa Ovalles [place], BRIQUETTE OPERATOR [address] [address] [email or web address] documented as of this encounter Visit Diagnoses Not on filedocumented in this encounter Care Teams Director Talent Acquisition Relationship Specialty Start Date End Date Steve Funez MD [address] [place] [address] Dr [address] [place] [address] PCP - General Internal Medicine 07/03/15 10/15/21 Steve Funez MD [address] [place] [address] Dr [address] [place] [address] PCP - General Internal Medicine 10/16/21 James Bullard MD [address] [address] Cardiology 05/05/19 Garrison Mustafa MD [address] [address] Vascular Surgery 05/05/19 Tomas De Leon MD [address] [address] [email or web address] Urology 05/05/19 Ria Aggarwal MD [address] [place] [address] [address] [place] [address] Rheumatology 05/05/19 Latonia Tineo MD [address] [place] [address] Hematology and Oncology 03/30/20 Rupert Alicea MD [address] [place] [address] Orthopedics & Sports Medicine, [facility] [place] [address] [email or web address] Orthopedic Surgery 01/01/21 documented as of this encounter Additional Source Comments The information contained in this document represents components of the legal health record. It is not the complete legal health record.[facility]
--- OUTSIDE RECORDS SUMMARY | 2024-08-10 17:34 | XMS_ITS | Patient Health Record ---
Author Organization [facility] Address [address] [place] [address] Care Team Providers Care Security Officer Name Role Phone Ama Funez MDh Primary Care Provider Edgar Adames Unavailable [phone] Allergies Allergen (clinical drug ingredient) Drug/Non Drug Allergy documented on EMR Reaction Allergy Type Onset Date Status general/spinal (uncoded) anesthesia poisoning Allergy Active aspirin Aspirin Unknown Drug Allergy Active meperidine Demerol Unknown Drug Allergy Active pregabalin Lyrica Unknown Drug Allergy Active Keflex rash Drug Allergy Active adhesive tape rash Drug Allergy Act zaida codeine Codeine Unknown Drug Allergy Active Reason For Referral No Information Medications Medication SIG (Take, Route, Frequency, Duration) Notes Start Date End Date Status Omeprazole 40 MG 1 capsule Orally Once a day for 30 day(s) Active VESIcare Not-Taking DULoxetine HCl 30 MG 1 capsule Orally Once a day for 30 day(s) Active Soma Not-Taking Amoxicillin 500 MG 4 capsules one time Orally Once a day for 1 day(s) 06/22/2020 Active Docusate Sodium 100 MG 1 capsule as need ed Orally Once a day for 30 day(s) Active Tricor Not-Taking Vitamin D3 1000 UNIT 1 tablet Orally Once a day for 30 day(s) Active Imitrex Not-Taking Fenofibrate Active Estradiol Active SUMAtriptan Not-Taki ng MiraLax Not-Taking Carisoprodol 350 MG 1 tablet as needed Orally Four times a day Active Lipitor Not-Taking Calcium 200 MG as directed Orally Active Mobic Not-Taking Atorvastatin Calcium 20 MG 1 tablet Oral ly Once a day for 30 day(s) Active Prevacid Not-Taking Acetaminophen 325 MG Orally Active Prednisone 14mg Not- Taking Doxycycline Hyclate 20 MG Orally Not-Taking predniSONE 5 MG 3 tablets Orally Not-Taking Gabapentin 300 MG 1 capsule Orally Twice Daily Active Pregabalin Active oxyCODONE HCl Active Meloxicam Not-Taking Lisinopril-hydroCHLOROthiazi d e 10-12.5 MG Orally Active Vitamin D Not-Taking Ativan 1 MG 1 tablet as needed Orally Twice a day Not-Taking Myrbetriq Not-Taking prednisoLONE Active [place]ulu[place] 3 Active Multivitamin Active Phenazopyridine HCl Unknown LORazepam Active hydroCHLOROthiazide Not-Taking Social History Tobacco Use: Social History Observation Description Date Details (start date - stop date) Former Smoker NA - NA Tobacco Use/Smoking Question Answer Notes Are you a: former smoker Additional Findings: Tobacco Non-User Current no n-smoker Alcohol Screen Question Answer Notes Did you have a drink containing alcohol in the p ast year? Yes Points 0 Interpretation Negative Tobacco use other than smoking: Question Answer Notes Are you an other tobacco user? No Problems Problem Type SNOMED Code ICD Code Onset Dates Problem Status W/U Status Risk Notes Problem Pain in right foot (610438570495928) Pain in right foot (M79.671) Active confirmed Problem Localized, primary osteoarthritis of the ankle and/or foot (911141190) Primary osteoarthriti s, right ankle and foot (M19.071) Active confirmed Problem Localized, primary osteoarthritis of the ankle and/or foot (434795263) Primary osteoarthriti s, left ankle and foot (M19.072) Active confirmed Problem [id number] Hallux varus (acquired), right foot (M20.31) Active confirmed Problem Non-pressure chronic ulcer of other part of left foot limited to breakdown of skin (L97.521) Active confirmed Problem Non-pressure chronic ulcer of other part of right foot limited to breakdown of skin (L97.511) Active confirmed Problem Acquired hammer toe of right foot (4236527928226721) Other hammer toe(s) (acquired), right foot (M20.41) Active confirmed Problem Acquired hammer toe of left foot (9934551138998222) Other hammer toe(s) (acquired), left foot (M20.42) Active confirmed Plan Of Treatment Pending Test Test Name Order Date X ray : Foot, left 2V 08/19/2013 X ray : Foot, left 3V 01/06/2019 X ray : Foot, left 3V 02/28/2014 X ray : Foot, right 3V 11/17/2019 X ray : Foot, right 3V 04/24/2020 X ray : Foot, right 3V 05/05/2019 X ray : Foot, right 3V 01/06/2019 X ray : Foot, right 3V 03/30/2012 81198-[facility] NAIL, 1-5 06/09/2014 15707-Zyte Destruction, -14 02/25/2019 52681-Dfzn Destruction, -14 12/10/2012 06658-Sgxb Destruction, -14 08/03/2012 79486-Fevt Destruction, -14 11/20/2011 75079-Iuwh Destruction, -14 08/19/2011 07437-Hmzp Destruction, -14 05/22/2011 76968-Bfod Destruction, -14 03/30/2012 84022-Beohggla Plate 08/10/2014 55315-Wzqiwbvk Plate 11/07/2014 40618-Sqrruyme Plate 08/19/2011 73773-Qjhdvgla Plate 11/20/2011 28857-Yvlxsdbe Plate 11/22/2013 88813- Debride <25 sq cm 08/29/2014 51519- Debride <25 sq cm 06/09/2014 72263- Debride <25 sq cm 02/28/2014 66849- Debride <25 sq cm 11/22/2013 44523- Debride <25 sq cm 08/10/2014 50479- Debride <25 sq cm 11/07/2014 36533- Debride <25 sq cm 08/19/2013 96653, J0702- INJECT or DRAIN, JOINT/BUR SA 11/22/2013, M8976-KKFRD/INJECT, JOINT/BURSA 0 12/16/2018 35503, J0702- Neuroma/Injection 11/23/19 14 61083, J0702- Neuroma/Injection 12/11/19 13 78866- Unna Boot 04/21/2019 X ray : Ankle, right 3V 08/19/2013 70372 - Tenotomy, open flexor 02/25/2019 Insurance Providers Payer Name Payer Address Payer Phone Subscriber Number Group Number Insured Name Patient Relationship to Insured Coverage Start Date Coverage End Date Medicare National [facility] [address] [place] [phone] [id number] Silvesjhonatan isYing Self - patient is the insured 7 [employer] [address] [place] [address] [id number] Kitty isYing Self - patient is the insured Medical (General) History Medical History History ICD Code joint implants/screws hernia chicken pox back, hip, knee pain Arthritis Broken bones CAD (Cholesterol) Cancer Diverticulosis Fibromyalgia Headaches/Migraines High blood pressure Numbness Reflux ( GERD) Sciatica Stomach ulcer Polymyalgia rheumatica Surgical History Surgery Date(Month/Year) appendectomy bladder surgery bunionectomy hysterectomy 5 laminectomy's and spinal fusiion tonsillectomy left foot surgery 10/12/2014 Bladder [facility]opsy[facility] 1 night stay 05/2018 cystectomy 01/15/2019 bladder biopsy-[facility] 02/16/2019 Bladder removed 06/2019 Hospitalization History Reason Date(Month/Year) Wing-Small bowel obstruction- 5 day stay 05/2018
== END 2024-08-10 16:01 | disposition home or self-care (01) ==
LOC: HO.HMCH 14:40
PROVIDERS: PCP Internal Medicine; Visit Provider Internal Medicine
DX: E78.2 Mixed hyperlipidemia (principal); I10 Essential (primary) hypertension; C67.9 Malignant neoplasm of bladder, unspecified; M51.362 Other intervertebral disc degeneration, lumbar region with discogenic back pain and lower extremity pain; M79.7 Fibromyalgia; M35.3 Polymyalgia rheumatica; S32.401S Unspecified fracture of right acetabulum, sequela; M25.511 Pain in right shoulder; M25.512 Pain in left shoulder; M25.561 Pain in right knee; M25.562 Pain in left knee; R26.81 Unsteadiness on feet

== ENCOUNTER → 2024-08-10 14:39 | Outpatient (BNVA) | payer MEDICARE, SELFPAY | PROVIDERS: PCP Internal Medicine; Visit Provider Internal Medicine | DX: E78.2 Mixed hyperlipidemia (principal); I10 Essential (primary) hypertension; M51.362 Other intervertebral disc degeneration, lumbar region with discogenic back pain and lower extremity pain; M79.7 Fibromyalgia; M35.3 Polymyalgia rheumatica; S32.401S Unspecified fracture of right acetabulum, sequela; C67.9 Malignant neoplasm of bladder, unspecified; M25.511 Pain in right shoulder; M25.512 Pain in left shoulder; M25.561 Pain in right knee; M25.562 Pain in left knee; R26.81 Unsteadiness on feet; R41.3 Other amnesia; R13.10 Dysphagia, unspecified; K21.9 Gastro-esophageal reflux disease without esophagitis; K59.00 Constipation, unspecified; F41.9 Anxiety disorder, unspecified; F33.9 Major depressive disorder, recurrent, unspecified; E66.9 Obesity, unspecified; Z68.25 Body mass index [BMI] 25.0-25.9, adult; Z71.3 Dietary counseling and surveillance | CPT/HCPCS: 96127; 99212 ==

== ENCOUNTER 2024-09-23 12:38 | Outpatient (AMB) | payer MEDICARE, SELFPAY ==
--- NOTE | 2024-09-23 12:44 | A.OFFPC_ITS ---
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 Loan Supervisor: Present Accompanied by: Significant Other Allergies cephalexin [Keflex] Allergy (Intermediate, Verified 09/23/24 12:54) hives codeine Allergy (Intermediate, Verified 09/23/24 12:54) vomit meperidine [Demerol] Allergy (Intermediate, Verified 09/23/24 12:54) Vomiting tizanidine Allergy (Intermediate, Verified 09/23/24 12:54) Dizziness pregabalin Adverse Reaction (Intermediate, Verified 09/23/24 12:54) double vision, hand tremors bandaids, plastic tape Allergy (Mild, Uncoded 08/10/24 15:16) Rash Tobacco use date assessed: 09/23/24 Fall risk assessment: 2 + Falls in past year Last assessed Fall Risk: 09/23/24 Dental Screening Dental Screen Date: 09/23/24 HPI fall with back pain HPI Details fall 1 week ago , - states 2 months ago has fall also , had PT already which just started friday- day of the fall- bruise on the R scapular area [facility] Medical History (Updated 09/23/24 @ 13:13 by Aramis Dumont MD) Essential hypertension Wheezing Overweight (BMI 25.0-29.9) Depression Keratotic lesion Bilateral shoulder pain Intertrigo Fracture of right pelvis Neck pain on right side Cranial pain Mixed hyperlipidemia Obesity (BMI 30-39.9) Anxiety Fibromyalgia Recurrent malignant neoplasm of bladder Benign essential hypertension Polymyalgia rheumatica Lumbar degenerative disc disease Surgical History History of biopsy History of colonoscopy History of hip surgery S/P ORIF (open reduction internal fixation) fracture (~06/2020) History of lumbosacral spine surgery Status post left foot surgery (~10/12/14) Hx of total cystectomy (~06/29/19) History of oral surgery (~04/2016) Status post cystourethroscopy with dilation of urethral stricture (~05/2015) Hx of tonsillectomy Family History Father Hypertension CVD (cardiovascular disease) Cancer Mother Stroke Social History Housing: House Alcohol intake: current Alcohol intake frequency: holidays/special occasions only Alcohol type: wine Patient Tobacco Use Status: Former Tobacco user Tobacco use type: Cigarette Cigarettes Per Day: 10 Years Smoked: 20 Packs per year/per ci.00 e-Cigarette/Vaping Use: Never Used Second Hand Smoke Exposure: Yes service: No Current occupational status: retired Cognitive needs: Yes (walker ) Hearing needs: No Vision needs: Yes Questionnaire PHQ-9 Over the last 2 weeks, how often have you been bothered by any of the following problems? 1. Little interest or pleasure in doing things: not at all 2. Feeling down, depressed, or hopeless: several days 3. Trouble falling or staying asleep, or sleeping too much: several days 4. Feeling tired or having little energy: not at all 5. Poor appetite or overeating: not at all 6. Feeling bad about yourself - or that you are a failure or have let yourself or your family down: several days 7. Trouble concentrating on things, such as reading the newspaper or watching television: not at all 8. Moving or speaking so slowly that other people could have noticed. Or the opposite - being so fidgety or restless that you have been moving around a lot more than usual: not at all 9. Thoughts that you would be better off or of hurting yourself in some way: not at all Total score: 3 Depression Screening Interpretation: Positive Depression Screening Done: Yes Source: Developed by Drs. Rupert Wilson, Shaye Russell, David Cleary and colleagues, with an educational kayleigh from [employer]. Thrive Questionnaire Date Thrive assessed: 08/10/24 I am a: Parent/Caregiver What is your living situation today?: I have a steady place to live Within the past 12 months, did the food you bought not last and you didn't have the money to get more?: Never true Within the past 12 months, did you worry whether your food would run out before you got money to buy more?: Never true Do you have trouble paying for medicines?: No Do you have trouble getting transportation to medical appointments?: No Do you have trouble paying your heating and electricity bill?: No Do you have trouble taking care of your child, family member or friend?: No Do you have trouble with day-to-day activities such as bathing, preparing meals, shopping, managing finances, etc.?: No Are you currently unemployed and looking for a job?: No Are you interested in more education?: No Please select the resources that you would like help with: None Currently or been in a relationship where the following occur: No concerns reported THRIVE Score: 0 AUDIT C Alcohol Use Questionnaire (AUDIT-C) 1. How often do you have a drink containing alcohol?: Never 3. How often do you have six or more drinks on one occasion?: Never Total Score: 0 MORGAN-7 AMB Questionnaire MORGAN-7 Date MORGAN - 7 assessed: 09/23/24 Feeling nervous, anxious, or on edge: 0 = Not at all Not being able to stop or control worryin = Not at all Worrying too much about different things: 0 = Not at all Trouble relaxin = Several days Being so restless that it is hard to sit still: 0 = Not at all Becoming easily annoyed or irritable: 0 = Not at all Feeling afraid as if something awful might happen: 0 = Not at all Total MORGAN-7 score (0-4 normal; 5-9 mild; 10-14 moderate; 15-21 severe): 1 Source: Developed by Drs. Rupert Wilson, Shaye Russell, David Cleary and colleagues, with an educational kayleigh from [employer]. Physical exam (Primary Care) Vital Signs: Last Vital Signs Temp 97.1 F 09/23/24 12:46 Pulse 77 09/23/24 12:46 Resp 24 H 09/23/24 12:46 BP 140/100 H 09/23/24 12:46 BMI result Body Mass Index 25.2 Tobacco/Smoking Status: Tobacco use Status Tobacco use date assessed 09/23/24 09/23/24 12:54 Patient Tobacco Use Status Former Tobacco user 09/23/24 12:54 Tobacco use type Cigarette 09/23/24 12:54 e-Cigarette/Vaping Use Never Used 09/23/24 12:54 PHQ-9: PHQ-9 Score PHQ-9: Total score 3 09/23/24 13:05 Depression Screening Interpretation: Positive Thrive Assessment: Date of Thrive Assessment Date Thrive assessed 08/10/24 09/23/24 12:54 Currently or been in a relationship where the following occur: No concerns reported Const General: alert; No acute distress Eyes Conjunctivae: conjunctivae normal Resp Auscultation: clear to auscultation bilaterally Cardio Rate: regular rate Rhythm: regular rhythm GI Inspection: Yes normal to inspection Extrem General: Yes normal to inspection and No edema Coding Level of Care Code Est Pt Level 4 (41909) Diagnoses Essential hypertension I10 Overweight (BMI 25.0-29.9) E66.3 Gastroesophageal reflux disease without esophagitis K21.9 Esophagitis presence: without esophagitis Degeneration of intervertebral disc of lumbar region with discogenic back pain and lower extremity pain M51.362 Disc-related pain type: discogenic back pain and lower extremity pain Upper back pain on left side M54.9 Fall W19.XXXA Knee pain, left M25.562 Knee pain, right M25.561 Assessment & Plan Assessment & Plan (1) Essential hypertension: Code(s): I10 - Essential (primary) hypertension Category: Medical Plan: Patient is on hydrochlorothiazide 12.5 mg once a day lisinopril 10 mg once a day metoprolol 50 mg once a day (2) Overweight (BMI 25.0-29.9): Code(s): E66.3 - Overweight Category: Medical Plan: Diet and exercise (3) GERD (gastroesophageal reflux disease): Code(s): K21.9 - Gastro-esophageal reflux disease without esophagitis Category: Medical Qualifiers: Esophagitis presence: without esophagitis Qualified Code(s): K21.9 - Gastro-esophageal reflux disease without esophagitis Plan: Avoid the foods that causes that usually spicy foods, tomato products, juices, coffee, soda and foods that your sensitive to. After eating do not lie down, allow 3-4 hours before in lie down. And keep the head of bed above 30 degrees to avoid the acid from going up. (4) Lumbar degenerative disc disease: Code(s): M51.36 - Other intervertebral disc degeneration, lumbar region Category: Medical Qualifiers: Disc-related pain type: discogenic back pain and lower extremity pain Qualified Code(s): M51.362 - Other intervertebral disc degeneration, lumbar region with discogenic back pain and lower extremity pain Plan: Patient is under pain contract with primary and is on oxycodone and muscle relaxants (5) Upper back pain on left side: Comment: 09/2025 Code(s): M54.9 - Dorsalgia, unspecified Category: Medical (6) Fall: Comment: 09/2024 Code(s): W19.XXXA - Unspecified fall, initial encounter Category: Medical (7) Knee pain, left: Comment: 09/2024 Code(s): M25.562 - Pain in left knee Category: Medical (8) Knee pain, right: Code(s): M25.561 - Pain in right knee Category: Medical Plan History of Present Illness The patient is a 74-year-old female presenting with evaluation following a recent fall and associated pain. The patient has a history of polymyalgia rheumatica, lumbar degenerative disc disease, hypertension, bladder cancer, and hypercholesterolemia. She is currently on hydrochlorothiazide, lisinopril, and metoprolol for hypertension management. The patient reports a fall occurring a week ago while entering her home, resulting in a bruise on her left arm and increased pain in her back and hips. She has a history of multiple falls, with the last one occurring a couple of months ago, and has undergone physical therapy in the past. She has a history of a hip fracture two years ago and has undergone five back surgeries. The patient also reports chronic pain managed with oxycodone and muscle relaxants, and she is under a pain contract with her primary care provider. The patient has osteoporosis and reports a torn rotator cuff in both shoulders. Health Maintenance Social History Review of Systems - Musculoskeletal: Reports pain in back, hips, and shoulders. Denies new bruises except on left arm. - Neurological: Reports pain in head, denies other neurological symptoms. - Genitourinary: Denies urinary problems, reports dark urine without blood. - General: Denies fever or chills. Physical Exam - Neurological: Strength intact in upper and lower extremities, no focal deficits noted. - Cardiovascular: Regular rate and rhythm, no murmurs noted. - Respiratory: Clear to auscultation bilaterally, no wheezes or crackles. Results Plan The patient will undergo a series of x-rays to assess for any new fractures or injuries resulting from the recent fall. These will include imaging of the spine, ribs, chest, right knee, and both hips to ensure comprehensive evaluation. The patient is advised to continue with physical therapy to strengthen muscles and prevent future falls. Discussion emphasized the importance of maintaining muscle strength and being cautious with pain medication use due to potential side effects. Patient was informed and verbally consented to the use of an ambient scribe for clinic note documentation during this visit. Discussion Notes I discussed with the patient the need for x-rays to check for any new fractures following her fall. We talked about the importance of continuing physical therapy to improve muscle strength and prevent further falls. I also highlighted the potential side effects of pain medications and the need to use them cautiously. Patient Instructions - Schedule and complete x-rays for spine, ribs, chest, right knee, and both hips. - Continue with physical therapy to strengthen muscles and prevent falls. - Use pain medications cautiously and be aware of potential side effects. Orders: Orders XR ribs BI min 4V w CXR1V Today M54.9 - Dorsalgia, unspecified XR thoracic spine 2V Today M54.9 - Dorsalgia, unspecified XR knee RT 2V Today M25.561 - Pain in right knee XR hip BI w PEL1V Today M25.561 - Pain in right knee
[2024-09-23 12:46] VITALS: BP 140/100; PULSE 77; RESP 24; TEMP 36.2; BMI 25.2
--- OUTSIDE RECORDS SUMMARY | 2024-09-23 14:32 | XMS_ITS | Patient Health Record ---
[facility] Address [address] [place] [address] Care Team Providers Care Process Checker Name Role Phone Ama Funez MDh Primary Care Provider Edgar Adames Unavailable [phone] Allergies Allergen (clinical drug ingredient) Drug/Non Drug [...] a day Not-Taking Myrbetriq Not-Taking prednisoLONE Active [place] 3 Active Multivitamin Active Phenazopyridine HCl Unknown [...] Risk Notes Problem Pain in right foot (785282814791615) Pain in right foot (M79.671) Active confirmed Problem Localized, primary osteoarthritis of the ankle and/or foot (587510610) Primary osteoarthriti s, right ankle and foot (M19.071) Active confirmed Problem Localized, primary osteoarthritis of the ankle and/or foot (222130778) Primary osteoarthriti s, left ankle and foot (M19.072) Active confirmed Problem [id number] Hallux varus (acquired), right foot (M20.31) Active confirmed Problem Non-pressure chronic ulcer of other part of left foot limited to breakdown of skin (L97.521) Active confirmed Problem Non-pressure chronic ulcer of other part of right foot limited to breakdown of skin (L97.511) Active confirmed Problem Acquired hammer toe of right foot (5830920669286492) Other hammer toe(s) (acquired), right foot (M20.41) Active confirmed Problem Acquired hammer toe of left foot (1762900677475327) Other hammer toe(s) (acquired), left foot (M20.42) Active confirmed Plan Of Treatment Pending Test Test Name Order Date X ray : Foot, left 2V 08/19/2013 X ray : Foot, left 3V 02/28/2014 X ray : Foot, left 3V 01/06/2019 X ray : Foot, right 3V 01/06/2019 X ray : Foot, right 3V 05/05/2019 X ray : Foot, right 3V 11/17/2019 X ray : Foot, right 3V 04/24/2020 X ray : Foot, right 3V 03/30/2012 29663-SARENOP NAIL, 1-5 06/09/2014 13704-Uxag Destruction, -14 02/25/2019 20705-Yepu Destruction, -14 08/03/2012 54600-Nmus Destruction, -14 12/10/2012 45775-Awpo Destruction, -14 05/22/2011 47836-Mpia Destruction, -14 08/19/2011 26612-Dqjp Destruction, -14 11/20/2011 15985-Mtcu Destruction, -14 03/30/2012 99969-Wyimpgdx Plate 11/22/2013 92157-Mzfjsnea Plate 08/19/2011 72645-Bysfcvos Plate 11/20/2011 95579-Fffexfpc Plate 11/07/2014 21215-Twyshivb Plate 08/10/2014 40283- Debride <25 sq cm 08/10/2014 10627- Debride <25 sq cm 08/29/2014 77131- Debride <25 sq cm 11/07/2014 09851- Debride <25 sq cm 06/09/2014 73784- Debride <25 sq cm 11/22/2013 56112- Debride <25 sq cm 02/28/2014 03168- Debride <25 sq cm 08/19/201345512, J0702- INJECT or DRAIN, JOINT/BUR SA 11/22/2013, C8700-AQZMM/INJECT, JOINT/BURSA 0 12/16/2018 65582, J0702- Neuroma/Injection 11/23/19 14 51199, J0702- Neuroma/Injection 12/11/19 13 95732- Unna Boot 04/21/2019 X ray : Ankle, right 3V 08/19/2013 45008 - Tenotomy, open flexor 02/25/2019 Insurance Providers Payer Name Payer Address Payer Phone Subscriber Number Group Number Insured Name Patient Relationship to Insured Coverage Start Date Coverage End Date Medicare [facility] [address] [place] [id number] [id number] Silvesjhonatan isYing Self - patient is the insured 7 [employer] [address] [place] [address] Kitty isYing Self - patient is the [...] fusiion tonsillectomy left foot surgery 10/12/2014 Bladder Biopsy-[facility] 1 night stay 05/2018 cystectomy 01/15/2019 bladder biopsy-[facility] 02/16/2019 Bladder removed 06/2019 Hospitalization History Reason Date(Month/Year) [facility]-Small bowel obstruction- 5 day stay 05/2018
== END 2024-09-23 13:28 | disposition home or self-care (01) ==
PROVIDERS: PCP Internal Medicine; Visit Provider Internal Medicine
DX: I10 Essential (primary) hypertension (principal); E66.3 Overweight; K21.9 Gastro-esophageal reflux disease without esophagitis; M51.362 Other intervertebral disc degeneration, lumbar region with discogenic back pain and lower extremity pain; M54.9 Dorsalgia, unspecified; W19.XXXA Unspecified fall, initial encounter; M25.562 Pain in left knee; M25.561 Pain in right knee

== ENCOUNTER 2024-09-23 12:38 | Outpatient (REF) | payer MEDICARE, SELFPAY ==
--- NOTE | ~2024-09-23 | XR_ITS ---
CLINICAL HISTORY: M25.561 - Pain in right knee 3 view right knee Comparison: None Findings: Mild medial femorotibial joint space narrowing is present. Mild marginal osteophyte formation is seen at the medial patellofemoral joint. No acute fracture or dislocation is identified. Intramedullary barber is seen in the distal femur. Soft tissue structures appear within normal limits. IMPRESSION: 1. No acute osseous abnormality is identified. 2. Mild degenerative changes in the right knee. This document has been electronically signed by: Valerie Recinos on 09/24/2024 09:07:13
--- NOTE | ~2024-09-23 | XR_ITS ---
CLINICAL HISTORY: M25.561 - Pain in right knee 5 view, pelvis and both hips Comparison: None Findings: Postsurgical bilateral pelvic changes. Normal alignment without acute fracture. Partially visualized antegrade, proximally locked right femoral intramedullary nail. No evidence of complication in the visualized portions of the hardware. Lower lumbar spine postsurgical changes. Minimal to mild degenerative narrowing of the superolateral aspects of the hip joints bilaterally. Mild small heterotopic ossification projecting over the left pelvic wall soft tissues. IMPRESSION: No acute fracture. This document has been electronically signed by: Donna Hannah MD on 09/24/2024 13:32:38
--- NOTE | ~2024-09-23 | XR_ITS ---
CLINICAL HISTORY: M54.9 - Dorsalgia, unspecified 3 views thoracic spine Comparison: None Findings: Mild multilevel marginal osteophyte formation and disc space narrowing is present. There is loss of anterior vertebral body height at T12. There is increased thoracic kyphosis. IMPRESSION: 1. Age-indeterminate mild T12 compression fracture. 2. Mild degenerative changes in thoracic spine with increased thoracic kyphosis. This document has been electronically signed by: Valerie Recinos on 09/24/2024 09:03:19
--- NOTE | ~2024-09-23 | XR_ITS ---
CLINICAL HISTORY: M54.9 - Dorsalgia, unspecified 4 view, chest and bilateral ribs Comparison: None Findings: Age-indeterminate left posterior 10th rib fracture is present. The heart is normal in size. The lungs are clear. IMPRESSION: 1. Age-indeterminate left posterior 10th rib fracture. This document has been electronically signed by: Valerie Recinos on 09/24/2024 09:04:03
== END 2024-09-23 12:39 | disposition home or self-care (01) ==
LOC: HO.XRAY 12:38
PROVIDERS: PCP Internal Medicine; Visit Provider Internal Medicine
DX: I10 Essential (primary) hypertension (principal); E66.3 Overweight; Z68.25 Body mass index [BMI] 25.0-25.9, adult; K21.9 Gastro-esophageal reflux disease without esophagitis; M51.362 Other intervertebral disc degeneration, lumbar region with discogenic back pain and lower extremity pain; M54.9 Dorsalgia, unspecified; M25.561 Pain in right knee; M25.562 Pain in left knee; Z79.899 Other long term (current) drug therapy; Z91.81 History of falling
CPT/HCPCS: 71111; 72070; 73521; 73560; 96127; 99212

== ENCOUNTER → 2024-09-23 13:52 | Outpatient (BNV) | payer MEDICARE, SELFPAY | PROVIDERS: PCP Internal Medicine; Visit Provider Radiology Vascular & Interventional Radiology | DX: M54.9 Dorsalgia, unspecified (principal); M25.561 Pain in right knee | CPT/HCPCS: 71111; 72070; 73560 ==

== ENCOUNTER 2024-12-01 15:02 | Outpatient (AMB) | payer MEDICARE, SELFPAY ==
--- NOTE | 2024-12-01 15:04 | A.OFFPC_ITS ---
Vital Signs 12/01/24 15:07 Height 5 ft 1 in Weight 139 lb 4 oz BMI 26.3 BP 126/84 Blood Pressure Location Lt brachial Position Sitting Pulse 69 Pulse Source Pulse Oximeter Pulse Oximetry (%) 96 Oxygen Delivery Method Room Air Intake Visit Reasons: 4mth f/u - see comments Shafting Worker Required: No Accompanied by: Self / Same As Patient Allergies cephalexin (Keflex) Allergy (Intermediate, Verified 12/01/24 15:42) hives codeine Allergy (Intermediate, Verified 12/01/24 15:42) vomit meperidine (Demerol) Allergy (Intermediate, Verified 12/01/24 15:42) Vomiting tizanidine Allergy (Intermediate, Verified 12/01/24 15:42) Dizziness pregabalin Adverse Reaction (Intermediate, Verified 12/01/24 15:42) double vision, hand tremors bandaids, plastic tape Allergy (Mild, Uncoded 12/01/24 15:42) Rash Medication List - Last Reconciled 12/01/24 by Steve Funez MD albuterol sulfate 90 mcg/actuation (ProAir HFA) 2 puffs inhalation Q4-6H PRN atorvastatin 20 mg PO DAILY betamethasone dipropionate 0.05% 1 appl topical DAILY PRN calcium carbonate (Calcium 600) 600 mg PO BID carisoprodol 350 mg PO TID PRN 28 days cholecalciferol (vitamin D3) 25 mcg PO DAILY docusate sodium (Colace) 100 mg PO BID esomeprazole magnesium (Nexium) 40 mg PO DAILY fenofibrate nanocrystallized 145 mg PO DAILY hydrochlorothiazide 12.5 mg PO QAM hydroxyzine HCl 25 mg PO TID PRN 30 days leflunomide 10 mg PO DAILY lidocaine 5% 3 patches topical DAILY loratadine 10 mg PO DAILY PRN 90 days lorazepam 2 mg PO TID PRN 30 days metoprolol succinate ER 50 mg PO DAILY nemolizumab-ilto (Nemluvio) 30 mg subcut Q4W nitroglycerin 0.4 mg sublingual Q5M PRN Nystop (nystatin) 1 appl topical BID PRN 30 days NS ondansetron 4 mg PO Q8H PRN 15 days oxycodone Take 1/2 to 1 tablet every 6 hours only as needed for increased pain; PO every 6 hours PRN; 10 days polyethylene glycol 3350 (Miralax) 17 grams PO DAILY PRN sertraline 200 mg (2 x 100 mg) PO QAM Tobacco use date assessed: 12/01/24 Fall risk assessment: 1 Fall in past year Last assessed Fall Risk: 12/01/24 Dental Screening Dental Screen Date: 12/01/24 Did you have a dental visit in the last 12 months?: Yes Did you have a dental problem in the last 6 months where you did not have access to dental care?: Yes Was dental information given to patient?: Patient has dentist HPI 4mt f/u - see comments HPI Details Patient comes in today for her follow-up visit Is again presenting with multiple complaints, as listed below and include chronic pain all over, neck pain, back pain and memory issues - Microangiopathic changes on MRI done a couple of weeks ago linked to hypertension, affecting memory - her memory impairment is possibly due to microangiopathic changes and due to the lingering effects of the anesthesia she received during her bladder surgery from a few years ago - Persistent neck pain - Compression fracture at T12 from a fal l, contributing to back pain. - Arthritis in hands causing pain and li mited movement. - Reports recurrent earache and jaw pain . - Lymphadenopathy noted, requires evalua tion. - History of osteoporosis, previously on Fosamax, concerns about side effects. Needs her Lorazepam Rx refilled today Patient had her follow-up labs done at [facility] about 1-2 weeks ago - to discuss her results [facility] Medical History Essential hypertension Wheezing Overweight (BMI 25.0-29.9) Depression Keratotic lesion Bilateral shoulder pain Intertrigo Fracture of right pelvis Neck pain on right side Cranial pain Mixed hyperlipidemia Obesity (BMI 30-39.9) Anxiety Fibromyalgia Recurrent malignant neoplasm of bladder Benign essential hypertension Polymyalgia rheumatica Lumbar degenerative disc disease Surgical History History of biopsy History of colonoscopy History of hip surgery S/P ORIF (open reduction internal fixation) fracture (~06/2020) History of lumbosacral spine surgery Status post left foot surgery (~10/12/14) Hx of total cystectomy (~06/29/19) History of oral surgery (~04/2016) Status post cystourethroscopy with dilation of urethral stricture (~05/2015) Hx of tonsillectomy Family History Father Hypertension CVD (cardiovascular disease) Cancer Mother Stroke Social History Housing: House Alcohol intake: current Alcohol intake frequency: holidays/special occasions only Alcohol type: wine Patient Tobacco Use Status: Former Tobacco user Tobacco use type: Cigarette Cigarettes Per Day: 10 Years Smoked: 20 e-Cigarette/Vaping Use: Never Used Second Hand Smoke Exposure: Yes service: No Current occupational status: retired Cognitive needs: Yes (walker ) Hearing needs: No Vision needs: Yes Questionnaire PHQ-9 Over the last 2 weeks, how often have you been bothered by any of the following problems? 1. Little interest or pleasure in doing things: not at all 2. Feeling down, depressed, or hopeless: several days 3. Trouble falling or staying asleep, or sleeping too much: several days 4. Feeling tired or having little energy: not at all 5. Poor appetite or overeating: not at all 6. Feeling bad about yourself - or that you are a failure or have let yourself or your family down: several days 7. Trouble concentrating on things, such as reading the newspaper or watching television: not at all 8. Moving or speaking so slowly that other people could have noticed. Or the opposite - being so fidgety or restless that you have been moving around a lot more than usual: not at all 9. Thoughts that you would be better off or of hurting yourself in some way: not at all Total score: 3 Depression Screening Interpretation: Positive Depression Screening Done: Yes 61210 - PHQ-9 Billing: Yes Source: Developed by Drs. Rupert Wilson, Shaye Russell, David Cleary and colleagues, with an educational kayleigh from [employer]. Thrive Questionnaire Date Thrive assessed: 12/01/24 I am a: Parent/Caregiver What is your living situation today?: I have a steady place to live Within the past 12 months, did the food you bought not last and you didn't have the money to get more?: Never true Within the past 12 months, did you worry whether your food would run out before you got money to buy more?: Never true Do you have trouble paying for medicines?: No Do you have trouble getting transportation to medical appointments?: No Do you have trouble paying your heating and electricity bill?: No Do you have trouble taking care of your child, family member or friend?: No Do you have trouble with day-to-day activities such as bathing, preparing meals, shopping, managing finances, etc.?: No Are you currently unemployed and looking for a job?: No Are you interested in more education?: No Please select the resources that you would like help with: None Currently or been in a relationship where the following occur: No concerns reported THRIVE Score: 0 AUDIT C Alcohol Use Questionnaire (AUDIT-C) 1. How often do you have a drink containing alcohol?: Never 3. How often do you have six or more drinks on one occasion?: Never Total Score: 0 Score Reviewed/Action Taken: Yes MORGAN-7 AMB Questionnaire MORGAN-7 Date MORGAN - 7 assessed: 09/23/24 Feeling nervous, anxious, or on edge: 0 = Not at all Not being able to stop or control worryin = Not at all Worrying too much about different things: 0 = Not at all Trouble relaxin = Several days Being so restless that it is hard to sit still: 0 = Not at all Becoming easily annoyed or irritable: 0 = Not at all Feeling afraid as if something awful might happen: 0 = Not at all Total MORGAN-7 score (0-4 normal; 5-9 mild; 10-14 moderate; 15-21 severe): 1 Source: Developed by Drs. Rupert Wilson, Shaye Russell, David Cleary and colleagues, with an educational kayleigh from [employer]. Review of Systems Const Denies chills, Reports fatigue, Denies fever(s), Denies headache(s) and Reports weakness ENT Reports dysphagia, Reports dizziness (on and off), Reports otalgia (recently, on and off), Denies headache(s), Reports neck pain (chronic), Denies odynophagia and Denies sore throat Card Reports chest pain (recurrent, over the anterior chest wall - ongoing for years), Denies palpitations and Reports dyspnea on exertion (mild) Resp Denies chest congestion, Denies cough and Reports dyspnea on exertion (mild) GI Denies abdominal pain, Denies constipation, Reports dysphagia, Denies heartburn, Denies diarrhea, Reports nausea (on and off), Denies odynophagia and Denies vomiting Details: 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 Musc Details: (+) right pelvic and right hip pain - s/p ORIF a couple of years ago Reports abnormal gait (unsteady), Reports back pain (over the lower back (chronic) - increasing lately), Reports myalgias (chronic diffuse pain), Reports arthralgias (both shoulders and multiple joints - see HPI) and Reports neck pain (chronic) Skin/Breast Denies rash Neuro Reports abnormal gait (unsteady), Reports dizziness (on and off), Denies headache(s), Reports memory loss, Reports tremor(s) and Reports weakness Psych Reports anxiety, Reports depression, Reports memory loss and Reports mood swings Endo Reports fatigue and Denies palpitations Physical exam (Primary Care) Vital Signs: Last Vital Signs Pulse 69 12/01/24 15:07 BP 126/84 12/01/24 15:07 Pulse Ox 96 12/01/24 15:07 Oxygen Delivery Method Room Air 12/01/24 15:07 BMI result Body Mass Index 26.3 Tobacco/Smoking Status: Tobacco use Status Tobacco use date assessed 12/01/24 12/01/24 15:07 Patient Tobacco Use Status Former Tobacco user 12/01/24 15:06 Tobacco use type Cigarette 12/01/24 15:06 e-Cigarette/Vaping Use Never Used 12/01/24 15:06 PHQ-9: PHQ-9 Score PHQ-9: Total score 3 12/01/24 16:04 Depression Screening Interpretation: Positive Thrive Assessment: Date of Thrive Assessment Date Thrive assessed 12/01/24 12/01/24 15:06 Currently or been in a relationship where the following occur: No concerns reported Const General: no acute distress and alert HENMT Ears: TM's normal bilaterally and EAC's normal Throat: Yes posterior oropharynx normal and Yes tonsils normal (no TP congestion noted) Neck Other: (+) multiple diffuse tender points over the neck and back Neck: No lymphadenopathy and Yes tender (over the cervical spine and paraspinal areas bilaterally) Thyroid: Thyroid normal Resp Auscultation: clear to auscultation bilaterally, no rales and no wheezes Cardio Rate: regular rate Rhythm: regular rhythm Heart sounds: no murmurs GI Other: (+) cystostomy bag over the right side of the lower abdomen Palpation (GI): Soft to palpation and nontender Auscultation: normal bowel sounds General: Yes no CVA tenderness Back/Spine/Pelvis Back: no CVA tenderness Cervical Spine: cervical muscular tenderness Thoracic/Lumbar Spine: paraspinal muscle tenderness bilaterally (over the cervical and thoracolumbar spine (diffuse)) and lumbar spinal tenderness Skin Rashes: no rashes Extrem General: Yes no clubbing, cyanosis or edema Right upper extremity: shoulder/upper arm Details: tenderness Location: of the A-C joint Left upper extremity: shoulder/upper arm Details: tenderness Location: of the A- C joint, wrist (increased tenderness) and hand Details: tenderness (left hand contracts painfully on and off) Right lower extremity: hip/thigh Details: tenderness Location: of the hip and knee Details: tenderness; no swelling Left lower extremity: knee Details: tenderness; no swelling Coding Level of Care Code Est Pt Level 4 (98582) Diagnoses Mixed hyperlipidemia E78.2 Essential hypertension I10 Degeneration of intervertebral disc of lumbar region with discogenic back pain a nd lower extremity pain M51.362 Disc-related pain type: discogenic back pain and lower extremity pain Fibromyalgia M79.7 Polymyalgia rheumatica M35.3 Closed nondisplaced fracture of right acetabulum, unspecified portion of acetabulum, sequela S32.401S Encounter type: sequela Pelvic bone location: acetabulum Sublocation of acetabulum: unspecified portion of acetabulum Fracture type: closed Fracture alignment: nondisplaced Recurrent malignant neoplasm of bladder C67.9 Bilateral shoulder pain, unspecified chronicity M25.511; M25.512 Chronicity: unspecified Pain in both knees, unspecified chronicity M25.561; M25.562 Chronicity: unspecified Memory impairment R41.3 Dysphagia, unspecified type R13.10 Dysphagia type: unspecified Gastroesophageal reflux disease without esophagitis K21.9 Esophagitis presence: without esophagitis Constipation, unspecified constipation type K59.00 Constipation type: unspecified constipation type Anxiety F41.9 Episode of recurrent major depressive disorder, unspecified depression episode severity F33.9 Depression Type: major depressive disorder Major depression recurrence: recurrent Active/Remission status: currently active Major depression episode severity: unspecified Obesity (BMI 30-39.9) E66.9 Additional Codes PHQ-9 - 47313 - PHQ-9 Billing: Yes ([id number]) Assessment & Plan Assessment & Plan (1) Mixed hyperlipidemia: Code(s): E78.2 - Mixed hyperlipidemia Category: Medical Plan: Results of her labs done at [facility] about 1 to 2 weeks ago reviewed and discussed with patient Reinforced low cholesterol diet Continue Atorvastatin 20 mg QD and Fenofibrate 145 mg QD Will recheck her labs and fasting lipids in 4 months for follow-up (2) Essential hypertension: Code(s): I10 - Essential (primary) hypertension Category: Medical Plan: Reinforced low sodium diet - goal is systolic BP of at least 130 mm or less Continue Lisinopril 10 mg QD and Hydrochlorothiazide 12.5 mg QD (3) Lumbar degenerative disc disease: Code(s): M51.36 - Other intervertebral disc degeneration, lumbar region Category: Medical Qualifiers: Disc-related pain type: discogenic back pain and lower extremity pain Qualified Code(s): M51.362 - Other intervertebral disc degeneration, lumbar region with discogenic back pain and lower extremity pain Plan: (+) chronic low back pain / failed back syndrome - she has had a total of 5 back surgeries done and states that none of them have helped much Reinforced activity and weight lifting restrictions Continue Gabapentin 600 mg 3 times a day Continue Oxycodone 10 mg every 6 hours as needed; reminded again that she can take 1/2 tablet during the daytime if she feels that she does not need the full 10 mg but should NOT TAKE MORE THAN 4 TABLETS A DAY We have been able to cut back on her previous Oxycodone dosage, which used to be a lot higher, and she currently appears to be at her baseline on her current dosage even though she would report that they do not help when she has flare ups of her PMR and/or fibromyalgia Have recommended that she follow up with pain management but she declined, as jaylon does not believe that they have anything helpful to offer her anymore at this time (4) Fibromyalgia: Code(s): M79.7 - Fibromyalgia Category: Medical Plan: Patient is again encouraged to continue with regular exercise and physical activity as tolerated to manage her fibromyalgia symptoms although she appears to continue to experience frequent flare ups and significant chronic diffuse pain She has what most likely are multiple pain generators in addition to her fibromyalgia, including polymyalgia rheumatica (has failed Methotrexate for steroid sparing and she is now on Humira - started on March 2022), as well as her cervical and lumbar degenerative disc disease and osteoarthritis Her Humira was interrupted for a while with development of a rash, which cleared up with oral Prednisone; she was started back on Humira by Dr. Aburto at 40 mg injection every other week once her rash cleared up completely She was also started additionally on Leflunamide 10 mg QD by rheumatology - has reportedly been advised that she now has rheumatoid arthritis Continue Carisoprodol 350 mg TID PRN as well as her Oxycodone PRN for pain; she is also on Gabapentin 600 mg TID Follow-up with rheumatology (Dr. Aburto in [place]) as scheduled although patient is now expressing her unhappiness with Dr. Aburto, who she used to love and rave about a couple of years ago, as she feels that what Dr. Aburto has been doing for her lately has not been helping much (5) Polymyalgia rheumatica: Code(s): M35.3 - Polymyalgia rheumatica Category: Medical Plan: Continue Humira injection 40 mg every other week Follow up with rheumatology as scheduled (6) Fracture of right pelvis: Comment: S/P ORIF by Dr. Alicea on 06/30/2020 Code(s): S32.9XXA - Fracture of unspecified parts of lumbosacral spine and pelvis, initial encounter for closed fracture Category: Medical Qualifiers: Encounter type: sequela Pelvic bone location: acetabulum Sublocation of acetabulum: unspecified portion of acetabulum Fracture type: closed Fracture alignment: nondisplaced Qualified Code(s): S32.401S - Unspecified fracture of right acetabulum, sequela Plan: S/P ORIF by Dr. Alicea on 06/30/2020 Per orthopedic follow up office notes, this has been treated and resolved and patient has experienced significant improvement of her symptoms with physical therapy and rehab and reported that this is back to her baseline level of pain and functioning Patient has been experiencing increased pain in both hips, especially since she fell (twice) after her hip surgery back in 2020 Follow up with orthopedics ([facility]) as scheduled or as needed (7) Recurrent malignant neoplasm of bladder: Code(s): C67.9 - Malignant neoplasm of bladder, unspecified Category: Medical Plan: S/P total cystectomy with urinary diversion in June 2019; she currently still has a urostomy bag on the right side of her lower abdomen Follow up with urology as scheduled She was reportedly advised at her follow up visit last year that she does not appear to have any recurrence of her bladder cancer so far (8) Bilateral shoulder pain: Code(s): M25.511 - Pain in right shoulder; M25.512 - Pain in left shoulder Category: Medical Qualifiers: Chronicity: unspecified Qualified Code(s): M25.511 - Pain in right shoulder; M25.512 - Pain in left shoulder Plan: Patient reportedly had rotator cuff tendinitis and tears in both shoulders (left shoulder MRI done in April 2020) but has not had any shoulder surgery or procedures done in the past Symptoms have improved eventually with PT/OT, which were interrupted when she suffered her hip fracture She currently still reports (+) recurrent shoulder pains although these are now more likely due to flare ups of her fibromyalgia and/or PMR Follow up with orthopedics as scheduled (9) Bilateral knee pain: Code(s): M25.561 - Pain in right knee; M25.562 - Pain in left knee Category: Medical Qualifiers: Chronicity: unspecified Qualified Code(s): M25.561 - Pain in right knee; M25.562 - Pain in left knee Plan: X-rays of both knees done in July 2023 revealed (+) mild degenerative changes in both knees Follow up with orthopedics as scheduled (10) Memory impairment: Code(s): R41.3 - Other amnesia Category: Medical Plan: Patient seen by Dr. Ronen Aelxander for neurology evaluation and was sent for a head CT, which revealed mild prominence of the ventricles and sulci compatible with parenchymal volume loss/atrophy. Scattered small FLAIR bright foci within the supratentorial white matter which are nonspecific but are compatible with chronic microangiopathic/small-vessel ischemic change. There is also a partially empty sella turcica noted incidentally Folllow up with neurology as scheduled (11) Dysphagia: Code(s): R13.10 - Dysphagia, unspecified Category: Medical Qualifiers: Dysphagia type: unspecified Qualified Code(s): R13.10 - Dysphagia, unspecified Plan: Patient was previously dent for an upper GI series for further evaluation of her dysphagia but it appears that she has not had this done yet (12) GERD (gastroesophageal reflux disease): Code(s): K21.9 - Gastro-esophageal reflux disease without esophagitis Category: Medical Qualifiers: Esophagitis presence: without esophagitis Qualified Code(s): K21.9 - Gastro-esophageal reflux disease without esophagitis Plan: Dietary restrictions reinforced Continue Esomeprazole 40 mg QD (13) Constipation: Code(s): K59.00 - Constipation, unspecified Category: Medical Qualifiers: Constipation type: unspecified constipation type Qualified Code(s): K59.00 - Constipation, unspecified Plan: Reinforced increased oral fluids and dietary fiber Have emphasized to patient again that this is most likely due to her chronic opioid Rx Continue Miralax 17 gm QD and Colace 100 mg BID PRN (14) Anxiety: Code(s): F41.9 - Anxiety disorder, unspecified Category: Medical Plan: Continue Lorazepam 2 mg TID PRN and Hydroxyzine 25 mg TID PRN She is also on Sertraline, which helps with her anxiety somewhat Have advised patient again to consider going for therapy/counseling as this may help her manage and cope with her anxiety issues better - states that she will call for referral if she decides to go for counseling (15) Depression: Code(s): F32.9 - Major depressive disorder, single episode, unspecified Category: Medical Qualifiers: Depression Type: major depressive disorder Major depression recurrence: recurrent Active/Remission status: currently active Major depression episode severity: unspecified Qualified Code(s): F33.9 - Major depressive disorder, recurrent, unspecified Plan: Continue Sertraline 200 mg QD She continues to feel very depressed about her physical incapacities and non- existent QOL Patient has repeatedly declined offer to refer her to psychiatry and for counseling - states that she just has too many appointments to go to right now (16) Obesity (BMI 30-39.9): Code(s): E66.9 - Obesity, unspecified Category: Medical Plan: Reinforced diet/exercise as tolerated/lose weight although her overall mobility is very poor and sedentary, in part due to her multiple conditions, so there is no realistic expectations on this Plan Follow up in 4 months Orders: Orders Complete Blood Count Auto Diff 4 Months D64.9 - Anemia, unspecified Comprehensive [place]. Panel Fast 4 Months E78.00 - Pure hypercholesterolemia, unspecified Lipid Panel 4 Months E78.00 - Pure hypercholesterolemia, unspecified Vitamin B12 and Folate 4 Months E53.8 - Deficiency of other specified B group vitamins Vitamin D 25-OH Total 4 Months E55.9 - Vitamin D deficiency, unspecified TSH reflex Free T4 4 Months E78.00 - Pure hypercholesterolemia, unspecified Medications: Refilled lorazepam 2 mg PO TID PRN 90 tabs 0RF anxiety 30 days F41.9 - Anxiety disorder, unspecified
[2024-12-01 15:07] VITALS: BP 126/84; PULSE 69; O2SAT 96; BMI 26.3
--- OUTSIDE RECORDS SUMMARY | 2024-12-01 15:59 | XMS_ITS | Clinical Summary ---
Author Organization [address] [place] [address] [place] [address] Phone Care Team Providers Care Decorating Kiln Operator Name Role Phone Steve Hale MD Primary Care Provider Allergies Active Allergy Reactions Criticality Noted Date Comments Adhesive Tape-Silicones 08/05/2023 Cephalexin 02/11/2024 Codeine 02/11/2024 Duloxetine 08/05/2023 Meperidine Hcl 02/11/2024 Pregabalin 08/05/2023 Medications nitroglycerin (NITROSTAT) 0.[address] 1 Tablet under the tongue every 5 minutes as needed for Chest pain. 4 Active amoxicillin (AMOXIL) 500 mg capsule Active [...] (one) time each day. 90 tablet 1 5 Active atorvastatin (LIPITOR) 40 mg tabletIndicatio ns:Mixed hyperlipidemia, Nonrheumatic mitral (valve) prolapse TAKE 1 TABLET BY MOUTH EVERY DAY 90 tablet 1 5 Active Active Problems Problem Noted Date Diagnosed Date Mixed hyperlipidemia 10/03/2023 TAYLOR (dyspnea on exertion) 08/05/2023 Other chest pain 08/05/2023 HTN (hypertension) 06/04/2023 Knee pain 06/04/2023 Nonrheumatic mitral (valve) prolapse 06/04/2023 Medical History Medical History Date Comments Bladder [...] Description 03/09/2025 2:00 PM EST Office Visit [facility] [address] [place] [address] James Bullard MD [address] [place] [address] Health Maintenance Due Date Last Done Comments DTaP,Tdap,and Td Vaccines (1 - Tdap) 08/10/1967 Zoster Vaccines (1 of 2) 08/10/1967 Pneumococcal Vaccine: 50+ Years (1 of 1 - PCV) 1998 Cholesterol Screening (Lipid Panel) 03/17/2022 Falls Risk Assessment 03/17/2022 Hepatitis C Screening 03/17/2022 Medicare Annual Wellness Visit 03/17/2022 Osteoporosis Screening (Bone Density Screening) 03/17/2022 Social Influencers of Health Screening 03/17/2022 RSV Immunization Adult Patients (1 - 1-dose 75+ series) 08/10/2023 COVID-19 Vaccine ( - season) 2023 03/30/2021, 09/30/2020, 09/01/2020 Depression Screening 04/14/2024 Hypertension/CHF/CAD Annual BMP Blood Test 07/22/2024 07/23/2023, 04/12/2020, 12/15/2019, Additional history exists Influenza Vaccine (#1) 2024 Breast Cancer Screening Discontinued 07/13/19, 06/25/2020, [...] Comments ANNUAL BMP BLOOD TEST Routine 07/23/2023 [facility] SCREENING DIGITAL Routine 07/12/2022 4:32 PM EDT Encounter for screening mammogram for malignant neoplasm of breast from Last 3 Months or Most Recently Relevant to Health Maintenance Results * Annual BMP Blood Test (07/23/2023) Annual BMP Blood Test abstracted us Historical Provider MD HEALTH MAINTENANCE Final Result * [facility] SCREENING DIGITAL (07/12/2022 4:32 PM EDT) Anatomical Region Laterality Modality Mammography 07/12/2022 2:07 PM EDT Narrative 07/12/2022 4:32 PM EDT [facility] Diagnostic Imaging Department [address] [place] [address] Patient: MONICAJENRENETTA YOUNG/Age/Sex: 1950 - 71 - F Unit#: [id number] Location/Status: [facility] CLI Mnemonic/Ordering Site: [facility] Ordering Physician: STEVE HALE MD [facility] Screening Digital - 07/12/221437 EXAM: [facility] Screening Digital EXAM DATE AND TIME: 07/12/2022 2:38 PM HISTORY: Screening. Right breast biopsy in 1991, pathology benign. COMPARISON: 06/24/20, 12/04/18, 11/01/16 TECHNIQUE: CC and MLO views of both breasts were obtained using full field digital mammography. Bilateral digital breast tomosynthesis was performed in the MLO projection. Computer aided detection with Adrenaline Mobility 7.2-H and LetsCram 3D 3.1 was employed. TISSUE DENSITY: b. [...] RECOMMENDATION(S): 1: Special mammographic view(s) needed LEFT 06236, 92285 3340F, 7025F Dictating Physician: CAROLYN FITZGERALD MD Electronically Signed by: CAROLYN FITZGERALD MD Dic Date/Time: 07/12/22 1630 Sign date/Time: 07/12/22 1632 Procedure Note Carolyn Fitzgerald MD - 05/16/2023 [facility] Diagnostic Imaging Department [address] [place] [address] Patient: RENETTA LOPEZ /Age/Sex: 1950 - 71 - F Unit#: [id number] Location/Status: [facility]AM/REG CLI Mnemonic/Ordering Site: [facility] Ordering Physician: STEVE HALE MD [facility] Screening Digital - 07/12/22 - 1438 EXAM: [facility] Screening Digital EXAM DATE AND TIME: 07/12/2022 2:38 PM HISTORY: Screening. Right breast biopsy in 1991, pathology benign. COMPARISON: 06/24/20, 12/04/18, 11/01/16 TECHNIQUE: CC and MLO views of both breasts were obtained using fullfield digital mammography. Bilateral digital breast tomosynthesis was performedin the MLO projection. Computer aided detection with Locationok 7.2-H andLetsCram 3D 3.1 was employed. TISSUE DENSITY: b. [...] RECOMMENDATION(S): 1: Special mammographic view(s) needed LEFT 00821, 34949 3340F, 7025F Dictating Physician: CAROLYN FITZGERALD MD Electronically Signed by: CAROLYN FITZGERALD MD Dic Date/Time: 07/12/22 1630 Sign date/Time: 07/12/22 1632 us Steve Hale MD IMG BI PROCEDURES Final Resu lt from Last 3 Months or Most Recently Relevant to Health Maintenance [facility] [address] [facility] [place] MEDIC[facility] Care Teams Decorating Kiln Operator Relationship Specialty Start Date End Date Steve Hale MD [address] [place] [address] [place] [address] [place] PCP - General 05/19/15
--- OUTSIDE RECORDS SUMMARY | 2024-12-01 15:59 | XMS_ITS | Clinical Summary ---
Author Organization [facility] Address [address] [place], [place] [id number] Care Team Providers Care Instructor Programmable Controllers Name Role Phone Unavailable Primary Care Provider Unavailabl e Social History Tobacco Use Types Packs/Day Years Used Date Smoking Tobacco: Never Assessed Comments Unknown Sex and Gender Information Value Date Recorded Sex Assigned at Not on file Legal Sex Female 4:15 PM EDT Gender Identity Not on file Sexual Orientation Not on file Last Filed Vital Signs Vital Sign Reading Time Taken Comments Blood Pressure - - Pulse - - Temperature - - Respiratory Rate - - Oxygen Saturation - - Inhaled Oxygen Concentration - - Weight 71.4 kg (157 lb 6 oz) 08/03/2019 6:19 PM EDT [facility] 154.9 cm (5' 1 ) 08/03/2019 6:19 PM EDT Body Mass Index 29.74 08/03/2019 6:19 PM EDT Plan of Treatment Not on file
--- OUTSIDE RECORDS SUMMARY | 2024-12-01 15:59 | XMS_ITS | Patient Health Record ---
Author [facility] Address [address] [place] [address] Care Team Providers Care Lockstitcher Name Role Phone Ama Funez MDh Primary Care Provider Edgar Adames Unavailable [phone] Allergies Allergen (clinical drug ingredient) Drug/Non Drug [...] 40 MG 1 capsule Orally Once a day; Duration: 30 day(s) Active VESIcare Not-Taking DULoxetine HCl 30 MG 1 capsule Orally Once a day; Duration: 30 day(s) Active Soma Not-Taking Amoxicillin 500 MG 4 capsules one time Orally Once a day; Duration: 1 day(s) 06/22/2020 Active Docusate Sodium 100 MG 1 capsule as need ed Orally Once a day; Duration: 30 day(s) Active Tricor Not-Taking Vitamin D3 1000 UNIT 1 tablet Orally Once a day; Duration: 30 day(s) Active Imitrex Not-Taking Fenofibrate Active Estradiol Active SUMAtriptan Not-Taki ng MiraLax Not-Taking Carisoprodol 350 MG 1 tablet as needed Orally Four times a day Active Lipitor Not-Taking Calcium 200 MG as directed Orally Active Mobic Not-Taking Atorvastatin Calcium 20 MG 1 tablet Oral ly Once a day; Duration: 30 day(s) Active Prevacid Not-Taking Acetaminophen 325 [...] a day Not-Taking Myrbetriq Not-Taking prednisoLONE Active Steward 3 Active Multivitamin Active Phenazopyridine HCl Unknown [...] Risk Notes Problem Pain in right foot (635250793828885) Pain in right foot (M79.671) Active confirmed Problem Localized, primary osteoarthritis of the ankle and/or foot (605988676) Primary osteoarthriti s, right ankle and foot (M19.071) Active confirmed Problem Localized, primary osteoarthritis of the ankle and/or foot (711987495) Primary osteoarthriti s, left ankle and foot (M19.072) Active confirmed Problem Acquired hallux varus (57202493) Hallux varus (acquired), right foot (M20.31) Active confirmed Problem Non-pressure chronic ulcer of other part of left foot limited to breakdown of skin (L97.521) Active confirmed Problem Non-pressure chronic ulcer of other part of right foot limited to breakdown of skin (L97.511) Active confirmed Problem Acquired hammer toe of right foot (1700791860784700) Other hammer toe(s) (acquired), right foot (M20.41) Active confirmed Problem Acquired hammer toe of left foot (0305113836333013) Other hammer toe(s) (acquired), left foot (M20.42) [...] X ray : Foot, right 3V 03/30/2012 41615-KAKOPLI NAIL, 1-5 06/09/2014 24170-Azut Destruction, -14 02/25/2019 38703-Qyny Destruction, -14 08/03/2012 95302-Nrem Destruction, -14 12/10/2012 74093-Frvz Destruction, -14 05/22/2011 90875-Laat Destruction, -14 08/19/2011 88013-Lfjg Destruction, -14 11/20/2011 97523-Hgfu Destruction, -14 03/30/2012 19402-Vyklbywu Plate 11/22/2013 05387-Wotuwaby Plate 08/19/2011 16827-Eyxrrpoj Plate 11/20/2011 43242-Ygzuupsb Plate 11/07/2014 71750-Agbskqjb Plate 08/10/2014 77882- Debride <25 sq cm 08/10/2014 33462- Debride <25 sq cm 08/29/2014 60124- Debride <25 sq cm 11/07/2014 17566- Debride <25 sq cm 06/09/2014 29561- Debride <25 sq cm 11/22/2013 86368- Debride <25 sq cm 02/28/2014 03042- Debride <25 sq cm 08/19/2013, J0702- INJECT or DRAIN, JOINT/BUR SA 11/22/2013, G9779-TEWMW/INJECT, JOINT/BURSA 0 12/16/2018 47640, J0702- Neuroma/Injection 11/23/19 14 38130, J0702- Neuroma/Injection 12/11/19 13 48411- Unna Boot 04/21/2019 X ray : Ankle, right 3V 08/19/2013 85521 - Tenotomy, open flexor 02/25/2019 Insurance Providers Payer Name Payer Address Payer Phone Subscriber Number Group Number Insured Name Patient Relationship to Insured Coverage Start Date Coverage End Date Medicare National Count Includes [facility] [address] [place] [address] [id number] Kitty is Ying Self - patient is the insured 7 [employer] [address] [place] [address] [id number] Kitty is Ying Self - patient is the insured Medical [...] fusiion tonsillectomy left foot surgery 10/12/2014 Bladder Biopsy-[facility] 1 night stay 05/2018 cystectomy 01/15/2019 bladder biopsy-[facility] 02/16/2019 Bladder removed 06/2019 Hospitalization History Reason Date(Month/Year) Wing-Small bowel obstruction- 5 day stay 05/2018
--- OUTSIDE RECORDS SUMMARY | 2024-12-01 15:59 | XMS_ITS | Encounter Summary ---
Author Organization [facility] Address [address] [facility] [address] [place] [address] Phone Care Team Providers Care Pole Peeling Machine Operator Name Role Phone Steve Funez MD Primary Care Provider [phone] James Bullard MD Unavailable [phone] Garrison Mustafa MD Unavailable Tomas De Leon MD Unavailable [phone] Ria Aggarwal MD Unavailable Latonia Tineo MD Unavailable Rupert Alicea MD Unavailable Steve Funez MD Primary Care Provider Encounter Details Date Type Department Care Team (Late st Contact Info) Description 10/23/2017 Procedure Pass [facility] [address] [place] [address] Social History Tobacco Use Types Packs/Day Years Used Date Smoking Tobacco: Former Cigarettes 0.5 20 Smokeless Tobacco: Never Comments:Quit 20 years ago Alcohol Use Standard Drinks/Week Comments No 0 (1 standard drink = 0.6 oz pur e alcohol) Comments Unknown Sex and Gender Information Value Date Recorded Sex Assigned at Female 07/13/2019 6:15 PM EDT Legal Sex Female 2:21 PM EDT Gender Identity Female 07/13/2019 6:15 PM EDT Sexual Orientation Straight 07/13/2019 6: 15 PM EDT documented as of this encounter Plan of Treatment Not on file documented as of this encounter Visit Diagnoses Not on filedocumented in this encounter Additional Health Concerns Infection Onset Date Last Indicated Resolved Time CoV-Risk Comment:Reviewed by biothreats/ID Dr. Lebron -See note in EPIC COVID negative x 2 Discontinue CoV Risk. Discontinue enhanced respiratory isolation 07/27/2019 07/27/2019 07/28/2019 3:08 PM E DT documented as of this encounter Care Teams Pole Peeling Machine Operator Relationship Specialty Start Date End Date Steve Funez MD [address] [place] [address] PCP - General Internal Medicine 07/03/15 10/15/21 Steve Funez MD [address] [place] [address] PCP - General Internal Medicine 10/16/21 James Bullard MD [address] [place] [address] Cardiology 05/05/19 Garrison Mustafa MD [address] [place] [address] Vascular Surgery 05/05/19 Tomas De Leon MD [address] [place] [address] [email or web address] Urology 05/05/19 Ria Aggarwal MD [address] [place] [address] Rheumatology 05/05/19 Latonia Tineo MD [address] [address] [email or web address] Hematology and Oncology 03/30/20 Rupert Alicea MD [address] [place] [address] Orthopedics & Sports Medicine, [place] [address] [email or web address] Orthopedic Surgery 01/01/21 documented as of this encounter Additional Source Comments The information contained in this document represents components of the legal health record. It is not the complete legal health record.[facility]
== END 2024-12-01 16:07 | disposition home or self-care (01) ==
LOC: HO.HMCH 15:03
PROVIDERS: PCP Internal Medicine; Visit Provider Internal Medicine
DX: E78.2 Mixed hyperlipidemia (principal); I10 Essential (primary) hypertension; C67.9 Malignant neoplasm of bladder, unspecified; M51.362 Other intervertebral disc degeneration, lumbar region with discogenic back pain and lower extremity pain; M79.7 Fibromyalgia; M35.3 Polymyalgia rheumatica; S32.401S Unspecified fracture of right acetabulum, sequela; M25.511 Pain in right shoulder; M25.512 Pain in left shoulder; M25.561 Pain in right knee; M25.562 Pain in left knee; R41.3 Other amnesia

== ENCOUNTER → 2024-12-01 15:02 | Outpatient (BNVA) | payer MEDICARE, SELFPAY | PROVIDERS: PCP Internal Medicine; Visit Provider Internal Medicine | DX: E78.2 Mixed hyperlipidemia (principal); I10 Essential (primary) hypertension; M51.362 Other intervertebral disc degeneration, lumbar region with discogenic back pain and lower extremity pain; M79.7 Fibromyalgia; M35.3 Polymyalgia rheumatica; S32.401S Unspecified fracture of right acetabulum, sequela; C67.9 Malignant neoplasm of bladder, unspecified; M25.511 Pain in right shoulder; M25.512 Pain in left shoulder; M25.561 Pain in right knee; M25.562 Pain in left knee; R41.3 Other amnesia; R13.10 Dysphagia, unspecified; K21.9 Gastro-esophageal reflux disease without esophagitis; K59.00 Constipation, unspecified; F41.9 Anxiety disorder, unspecified; F33.9 Major depressive disorder, recurrent, unspecified; E66.9 Obesity, unspecified; Z68.26 Body mass index [BMI] 26.0-26.9, adult; Z71.3 Dietary counseling and surveillance | CPT/HCPCS: 96127; 99212 ==